=== PATIENT | female | born 1940 | race Caucasian/White ===

== ENCOUNTER 2020-08-07 10:22 | Outpatient (REF) | payer OTHER, SELFPAY ==
[2020-08-07 13:49] LABS: MANUAL DIFF FLAG NO
[2020-08-07 13:53] LABS: Basophils Percent Auto 0.6 % (0-2); Eosinophils Absolute Auto 0.1 X10*3/uL (0.0-0.4); Eosinophils Percent Auto 2.2 % (0-4); Hemoglobin 12.6 g/dl (12.0-16.0); Imm Gran Abs Auto 0.01 X10*3/uL (0.00-0.03); Imm Gran Pct Auto 0.2 % (0.0-0.4); Lymphocytes Absolute Auto 1.6 X10*3/uL (1.2-4.9); Lymphocytes Percent Auto 32.6 % (20-40); Mean Corpuscular HGB Conc 32.3 g/dl (31.0-35.0); Mean Corpuscular Hemoglobin 31.6 pg (27.0-33.0); Mean Corpuscular Volume 97.7 fL (80-98); Mean Platelet Volume 11.3 fL (9.4-12.3); Monocytes Absolute Auto 0.5 X10*3/uL (0.1-1.2); Monocytes Percent Auto 9.2 % (2-11); Neutrophils Absolute Auto 2.7 X10*3/uL (2.0-8.3); Neutrophils Percent Auto 55.2 % (45-73); Platelet Count 193 X10*3/uL (160-400); Red Blood Count 3.99 X10*6/uL (4.20-5.50); Red Cell Distribution Width 12.2 % (11.0-16.0); White Blood Count 4.9 X10*3/uL (4.8-10.8)
[2020-08-07 14:44] LABS: Alanine Aminotransferase 14 U/L (0-31); Albumin Level 3.7 g/dL (3.5-5.0); Alkaline Phosphatase 51 U/L (39-117); Anion Gap 12 (12-20); Aspartate Amino Transferase 20 U/L (5-31); Bilirubin Total 0.7 mg/dL (0.0-1.0); Blood Urea Nitrogen 22 mg/dL (9-16); Calcium 8.7 mg/dL (8.4-10.2); Carbon Dioxide 28 mmol/L (22-29); Chloride 104 mmol/L (96-108); Cholesterol 155 mg/dL; Estimated Glomerular Filt Rate > 60; Glucose Random 78 mg/dL (60-115); Potassium 3.9 mmol/l (3.3-5.1); Sodium 140 mmol/L (135-145); Total Protein 6.9 g/dL (6.5-8.0)
== END 2020-08-07 10:23 | disposition home or self-care (01) ==
LOC: HO.10HDL 10:22
PROVIDERS: Visit Provider Internal Medicine
DX: E78.00 Pure hypercholesterolemia, unspecified (principal); I48.0 Paroxysmal atrial fibrillation; I10 Essential (primary) hypertension
CPT/HCPCS: 36415; 80053; 82465; 85025

== ENCOUNTER 2020-08-12 14:45 | Outpatient (REF) | payer OTHER, SELFPAY | END 2020-08-12 14:46 | disposition home or self-care (01) | LOC: HO.LNP 14:45 | PROVIDERS: Visit Provider Internal Medicine | DX: Z20.828 Contact with and (suspected) exposure to other viral communicable diseases (principal) | CPT/HCPCS: U0003 ==

== ENCOUNTER → 2020-09-01 14:06 | Outpatient (BNVA) | payer OTHER, SELFPAY | PROVIDERS: PCP Internal Medicine; Visit Provider Internal Medicine Cardiovascular Disease | DX: I48.0 Paroxysmal atrial fibrillation (principal); I10 Essential (primary) hypertension; I45.10 Unspecified right bundle-branch block; Z79.01 Long term (current) use of anticoagulants; Z79.899 Other long term (current) drug therapy | CPT/HCPCS: 93005; 99212 ==

== ENCOUNTER → 2020-11-10 13:37 | Outpatient (BNVA) | payer OTHER, SELFPAY | PROVIDERS: PCP Internal Medicine; Visit Provider Surgery | DX: L72.0 Epidermal cyst (principal) | CPT/HCPCS: 99202 ==

== ENCOUNTER → 2020-12-01 08:52 | Outpatient (BNVA) | payer OTHER, SELFPAY | PROVIDERS: PCP Internal Medicine; Visit Provider Internal Medicine Cardiovascular Disease | DX: I48.0 Paroxysmal atrial fibrillation (principal) | CPT/HCPCS: 93005 ==

== ENCOUNTER 2021-02-17 11:57 | Outpatient (REF) | payer OTHER, SELFPAY ==
[2021-02-17 13:21] LABS: MANUAL DIFF FLAG NO
[2021-02-17 13:31] LABS: Basophils Percent Auto 0.5 % (0-2); Eosinophils Absolute Auto 0.1 X10*3/uL (0.0-0.4); Eosinophils Percent Auto 1.4 % (0-4); Hematocrit 38.7 % (37-47); Hemoglobin 12.5 g/dl (12.0-16.0); Imm Gran Abs Auto 0.01 X10*3/uL (0.00-0.03); Imm Gran Pct Auto 0.2 % (0.0-0.4); Lymphocytes Absolute Auto 1.8 X10*3/uL (1.2-4.9); Lymphocytes Percent Auto 42.8 % (20-40); Mean Corpuscular HGB Conc 32.3 g/dl (31.0-35.0); Mean Corpuscular Hemoglobin 31.4 pg (27.0-33.0); Mean Corpuscular Volume 97.2 fL (80-98); Monocytes Absolute Auto 0.4 X10*3/uL (0.1-1.2); Monocytes Percent Auto 8.9 % (2-11); Neutrophils Absolute Auto 1.9 X10*3/uL (2.0-8.3); Neutrophils Percent Auto 46.2 % (45-73); Platelet Count 203 X10*3/uL (160-400); Red Blood Count 3.98 X10*6/uL (4.20-5.50); Red Cell Distribution Width 12.6 % (11.0-16.0); White Blood Count 4.2 X10*3/uL (4.8-10.8)
[2021-02-17 13:57] LABS: Alanine Aminotransferase 16 U/L (0-31); Albumin Level 3.8 g/dL (3.5-5.0); Alkaline Phosphatase 53 U/L (39-117); Anion Gap 9 (12-20); Aspartate Amino Transferase 21 U/L (5-31); Bilirubin Total 0.6 mg/dL (0.0-1.0); Blood Urea Nitrogen 19 mg/dL (9-16); Carbon Dioxide 32 mmol/L (22-29); Chloride 104 mmol/L (96-108); Estimated Glomerular Filt Rate > 60; Glucose Random 84 mg/dL (60-115); Sodium 141 mmol/L (135-145); Total Protein 6.7 g/dL (6.5-8.0)
== END 2021-02-17 11:58 | disposition home or self-care (01) ==
LOC: HO.10HDL 11:57
PROVIDERS: PCP Internal Medicine; Visit Provider Internal Medicine
DX: I10 Essential (primary) hypertension (principal); I48.0 Paroxysmal atrial fibrillation; E78.00 Pure hypercholesterolemia, unspecified
CPT/HCPCS: 36415; 80053; 85025

== ENCOUNTER → 2021-02-24 09:25 | Outpatient (REF) | payer OTHER, SELFPAY ==
--- NOTE | 2021-02-24 09:28 | CA_ITS ---
Transthoracic Echocardiogram Patient (Last, First, Middle): Vera Rees M Gender: Female Date of : 1940 Age: 80 Procedure Date: 02/24/2021 Procedure Type: Transthoracic Echocardiogram Location: OP Height: 154.94 cm Weight: 81.65 kg BSA: 1.81 m2 Heart Rate: bpm BP: 126 / 64 mmHg Store Manager: José Luis MD: Lee Barajas MD Digital Press Operator: Lee Barajas MD Symptoms: I48.0 - Paroxysmal atrial fibrillation Study Quality: Good ECG Rhythm: Sinus Conclusions: - 1. Normal LV systolic function with impaired relaxation filling pattern 2. Mildly dilated left atrium 3. Moderate mitral and calcification with normal cardiac valvular Doppler 4. Normal RV systolic pressure 5. No pericardial effusion Findings Left Ventricle Normal left ventricular size, thickness, and systolic function. The visually estimated ejection fraction is between 60-65%. Spectral Doppler is indicative of an impaired relaxation filling pattern. E/E prime ratio is between 8 and 15 consistent with indeterminate filling pressures. Right Ventricle Normal right ventricular cavity size and systolic function. Atria The left atrium is mildly dilated. There is no evidence of interatrial shunt. The right atrium is normal in size. Aortic Valve Normal aortic valve structure and function. There is no aortic valve stenosis. There is no aortic valve regurgitation. Mitral Valve There is mild anterior and moderate posterior mitral leaflet thickening. There is moderate mitral annular calcification. There is trace mitral valve regurgitation. There is no mitral valve stenosis. Pulmonic Valve The pulmonic valve was not well visualized. Tricuspid Valve Likely normal tricuspid valve structure and function. There is mild tricuspid valve regurgitation. The right ventricular systolic pressure is normal. The right ventricular systolic pressure is 29 mmHg. Normal right atrial pressure. There is no evidence of pulmonary hypertension. Great Vessels All visible segments of the aorta are normal in size. The pulmonary artery was not well visualized. Venous The inferior vena cava is normal in size and collapses greater than 50% with inspiration. Pericardium/Pleural There is no evidence of pericardial effusion. Measurements 2D Linear Measurements RVIDd: 3.80 RVIDd Index: 2.10 IVSd: 0.97 0.6-0.9/0.6-1.0 cm LVIDd: 4.61 3.9-5.3/4.2-5.9 cm LVIDd Index: 2.55 2.4-3.2/2.2-3.1 cm/m2 LVIDs: 3.10 2.0-3.6 cm LVPWd: 1.17 0.7-1.1 cm Ao Root: 3.10 2.1-3.5 cm LA Diam: 3.90 2.7-3.8/3.0-4.0 cm LAIDs Index: 2.15 1.5-2.3 cm/m2 LV Mass: 217.25 67-162/88-224 g LV Mass Index: 120.03 43-95/49-115 g/m2 LVOT Diam: 2.10 3.0+(-)1.3 cm 2D Systolic Function EF 4C: 52.30 >55% EF 2C: 62.30 >55% EF BiP: 59.10 >55% Mitral Valve MV Pk E: 0.70 MV PK A: 0.59 MV Decel Time: 244.00 E/A: 1.20 E'Lateral: 6.20 E'Medial: 5.66 E/E' Med: 12.30 E/E' Lat: 11.30 Aortic Valve AoV Pk Christopher: 1.38 AoV Mn Christopher: 1.03 AoV VTI: 0.36 AoV Pk Grad: 8.00 Aov Mn Grad: 5.00 PARESH Cont.VTI: 2.45 LVOT LVOT Pk Christopher: 0.86 LVOT Mn Christopher: 0.67 LVOT VTI: 0.25 LVOT Pk Grad: 3.00 LVOT Mn Grad: 2.00 LVOT Diam: 2.10 LVOT Area: 3.46 Diastolic Function MV Pk E: 0.70 MV Pk A: 0.59 E/A: 1.20 E'Medial: 5.66 E/E' Med: 12.30 E' Laterial: 6.20 E/E' Lat: 11.30 Tricuspid Valve TR Pk Christopher: 2.54 TR Pk Grad: 26.00 RA Press: 3.00 RVSP: 29.00 Great Vessels Aorta Ao Root-2D: 3.10 2.0-3.7 cm Ao Asc: 3.40 2.1-3.4 cm Updated in Other Vendor System with Status of Final Lee Barajas MD electronically signed on 02/24/2021 5:02:48 PM with status of Final
== END ==
LOC: HO.CARD 09:25
PROVIDERS: PCP Internal Medicine; Visit Provider Internal Medicine Cardiovascular Disease
DX: I10 Essential (primary) hypertension (principal); I45.10 Unspecified right bundle-branch block; I48.0 Paroxysmal atrial fibrillation
CPT/HCPCS: 93306

== ENCOUNTER → 2021-04-16 09:55 | Outpatient (BNVA) | payer OTHER, SELFPAY | PROVIDERS: PCP Internal Medicine; Visit Provider Internal Medicine Cardiovascular Disease | DX: I48.0 Paroxysmal atrial fibrillation (principal); I10 Essential (primary) hypertension | CPT/HCPCS: 93005; 99212 ==

== ENCOUNTER 2021-06-30 20:36 | Emergency (ER) | payer OTHER, SELFPAY ==
--- NOTE | ~2021-06-30 | XR_ITS ---
EXAMINATION: XR KNEE, LEFT CLINICAL INFORMATION: Pain following twisting injury. COMPARISON: Left knee radiographs dated 12/29/2015. TECHNIQUE: AP and lateral views of the left knee. FINDINGS: Total left knee arthroplasty. No acute hardware fracture. No osseous fracture. No perihardware lucency to suggest loosening or infection. Dystrophic calcification within the distal quadriceps tendon, increased when compared to the prior examination. Large joint effusion. XR/XR knee LT 2V IMPRESSION: Large joint effusion. No evidence of acute osseous or hardware abnormality.
[2021-06-30 20:43] VITALS: BP 160/96; BP 198/104; PULSE 81; PULSE 88; RESP 18; TEMP 37; O2SAT 98; BMI 34.0
[2021-06-30 20:45] VITALS: BP 228/96
--- NOTE | 2021-06-30 20:59 | ED.LOWEXIN ---
HPI - Extremity Injury (Lower) General Chief Complaint: Extremity Injury, Lower Stated Complaint: L knee pain Time Seen by Provider: 06/30/21 20:59 Source: patient Mode of arrival: ambulatory Limitations: no limitations History of Present Illness HPI Narrative: Patient is status post left knee replacement 5 years ago was doing fine was walking to still her foot has a curbside earlier today since then increased swelling of the left knee with effusion increased pain on standing unable to walk because of pain no other injury Related Data Home Medications Medication Instructions Recorded Confirmed amlodipine 2.5 mg tablet 2.5 mg PO DAILY 09/01/20 04/16/21 dronedarone 400 mg tablet 400 mg PO BID 09/01/20 04/16/21 lisinopril 40 mg tablet 40 mg PO DAILY 09/01/20 04/16/21 multivitamin 1 tab PO DAILY 09/01/20 04/16/21 pravastatin 40 mg tablet 40 mg PO DAILY tab 09/01/20 04/16/21 ascorbate calcium (vitamin C) 500 500 mg PO DAILY 04/16/21 04/16/21 mg tablet calcium carbonate 500 mg calcium 500 mg PO DAILY 04/16/21 04/16/21 (1,250 mg) tablet (Calcium 500) Previous Rx's Medication Instructions Recorded dabigatran etexilate 150 mg 150 mg PO BID 90 Days #180 cap 07/22/20 capsule (Pradaxa) oxycodone 5 mg tablet 5 mg PO Q6H PRN #20 tab 06/30/21 Allergies Allergy/AdvReac Type Severity Reaction Status Date / Time No Known Allergies Allergy Verified 04/16/21 10:11 [No Known Allergies*] Review of Systems Review of Systems: Yes all other systems are reviewed and are negative [facility] Past Medical History Medical History Epidermal cyst of face HTN (hypertension) Paroxysmal atrial fibrillation Right bundle branch block (RBBB) on electrocardiogram (ECG) Surgical History History of tonsillectomy History of total knee replacement (~2014) Family History Family History Father Pancreatic cancer Mother Stroke CHF (congestive heart failure) Diabetes mellitus Brother Cardiovascular disease Social History Social History Alcohol intake: current Alcohol intake frequency: holidays/special occasions only Alcohol type: wine Patient Tobacco Use Status: Never used Tobacco Advance Directives: No Advance Directives Information Provided: Yes Physical Exam Vital Signs: Vital Signs: Last Vital Signs Temp 98.6 F 06/30/21 20:43 Pulse 81 06/30/21 20:43 Resp 18 06/30/21 20:43 BP 228/96 H 06/30/21 20:45 Pulse Ox 98 06/30/21 20:43 Body Mass Index 34.0 Const: General: well developed and in distress Orientation/consciousness: patient oriented x3 HENMT: Head: Yes normocephalic and Yes atraumatic Resp: Effort & Inspection: normal respiratory effort Auscultation: clear to auscultation bilaterally Cardio: Palpation: normal PMI Rate: regular rate Rhythm: regular rhythm Heart sounds: S1 normal heart sound present and S2 normal heart sound present Peripheral pulses: Peripheral pulses 2+ throughout GI: Inspection: Yes normal to inspection Palpation (GI): Soft to palpation Auscultation: normal bowel sounds Neuro: General: patient oriented x3 Extrem: Knee images: 1. Moderate effusion diffuse tenderness at the joint line good range of movement MDM - Extremity Injury (Lower) MDM Narrative Medical decision making narrative: Patient's x-ray negative for any fracture case discussed with orthopedics advised knee immobilizer weight-bearing as tolerated patient able to ambulate to bathroom feeling much better discharge patient home Differential Diagnosis Differential diagnosis: Likely acute internal derangement of knee Discharge Plan Discharge Clinical Impression: Strain of left knee Qualifiers: Encounter type: initial encounter Qualified Code(s): S86.912A - Strain of unspecified muscle(s) and tendon(s) at lower leg level, left leg, initial encounter Patient Disposition: Home, Self-Care Instructions: Knee Sprain (ED) Additional Instructions: Knee immobilizer as advised for support Weight-bearing as tolerated use cane or walker Follow-up with Dr. Mac next week Pain medication as prescribed Prescriptions: New oxycodone 5 mg tablet 5 mg PO Q6H PRN (Reason: pain) Qty: 20 RF: 0 No Action Pradaxa 150 mg capsule 150 mg PO BID 90 Days Qty: 180 RF: 1 amlodipine 2.5 mg tablet 2.5 mg PO DAILY RF: 0 Multaq 400 mg tablet 400 mg PO BID RF: 0 lisinopril 40 mg tablet 40 mg PO DAILY RF: 0 pravastatin 40 mg tablet 40 mg PO DAILY RF: 0 multivitamin Tablet 1 tab PO DAILY RF: 0 ascorbate calcium (vitamin C) 500 mg tablet 500 mg PO DAILY RF: 0 calcium carbonate [Calcium 500] 500 mg calcium (1,250 mg) tablet 500 mg PO DAILY RF: 0 Referrals: Martín Mac MD [Physician] - 3 days Interventions: ED Discharge Assessment Last Done: 06/30/21 23:05
[2021-06-30] MEDS: oxyCODONE HCl Immed Release 5 MG TABLET 10 MG PO (21:33)
== END 2021-06-30 23:06 | disposition home or self-care (01) ==
PROVIDERS: Emergency Provider Internal Medicine
DX: S86.912A Strain of unspecified muscle(s) and tendon(s) at lower leg level, left leg, initial encounter (principal); M25.562 Pain in left knee; X58.XXXA Exposure to other specified factors, initial encounter; Y93.9 Activity, unspecified; Y92.9 Unspecified place or not applicable; Y99.9 Unspecified external cause status; Z79.899 Other long term (current) drug therapy
CPT/HCPCS: 73560; 99283

== ENCOUNTER 2021-07-11 08:22 | Outpatient (REF) | payer OTHER, SELFPAY ==
[2021-07-11 08:33] LABS: MANUAL DIFF FLAG NO
[2021-07-11 09:17] LABS: Basophils Percent Auto 0.7 % (0-2); Eosinophils Absolute Auto 0.1 X10*3/uL (0.0-0.4); Eosinophils Percent Auto 2.6 % (0-4); Hematocrit 38.2 % (37.0-47.0); Hemoglobin 12.6 g/dl (12.0-16.0); Imm Gran Abs Auto 0.01 X10*3/uL (0.00-0.03); Imm Gran Pct Auto 0.2 % (0.0-0.4); Lymphocytes Absolute Auto 2.1 X10*3/uL (1.2-4.9); Lymphocytes Percent Auto 47.7 % (20-40); Mean Corpuscular Hemoglobin 32.3 pg (27.0-33.0); Mean Corpuscular Volume 97.9 fL (80.0-98.0); Monocytes Absolute Auto 0.4 X10*3/uL (0.1-1.2); Monocytes Percent Auto 9.1 % (2-11); Neutrophils Absolute Auto 1.7 x10*3/uL (2.0-8.3); Neutrophils Percent Auto 39.7 % (45-73); Platelet Count 216 X10*3/uL (160-400); Red Cell Distribution Width 12.7 % (11.0-16.0); White Blood Count 4.3 X10*3/uL (4.8-10.8)
[2021-07-11 09:56] LABS: Alanine Aminotransferase 18 U/L (0-31); Albumin Level 3.7 g/dL (3.5-5.0); Alkaline Phosphatase 51 U/L (39-117); Anion Gap 10 (12-20); Aspartate Amino Transferase 22 U/L (5-31); Bilirubin Total 0.4 mg/dL (0.0-1.0); Blood Urea Nitrogen 23 mg/dL (9-16); Calcium 8.6 mg/dL (8.4-10.2); Carbon Dioxide 29 mmol/L (22-29); Chloride 107 mmol/L (96-108); Cholesterol 143 mg/dL; Estimated Glomerular Filt Rate > 60; Glucose Fasting 88 mg/dL (60-99); HDL Cholesterol 45 mg/dL; LDL Cholesterol Calculated 80 mg/dl; Sodium 142 mmol/L (135-145); Total Protein 6.7 g/dL (6.5-8.0); Triglycerides 91 mg/dL
== END 2021-07-11 08:23 | disposition home or self-care (01) ==
LOC: HO.LAB 08:22
PROVIDERS: PCP Internal Medicine; Visit Provider Internal Medicine
DX: I10 Essential (primary) hypertension (principal); E78.00 Pure hypercholesterolemia, unspecified; I48.0 Paroxysmal atrial fibrillation; M19.90 Unspecified osteoarthritis, unspecified site
CPT/HCPCS: 36415; 80053; 80061; 85025

== ENCOUNTER 2021-07-15 13:16 | Outpatient (REF) | payer OTHER, SELFPAY ==
--- NOTE | ~2021-07-15 | MM_ITS ---
EXAMINATION: MM SCREENING DIGITAL BREAST TOMOSYNTHESIS, BILATERAL CLINICAL INFORMATION: Screening. Asymptomatic. The lifetime risk of breast cancer based on the Tyrer-Cuzick Model is 3%. COMPARISON: Mammography: 03/20/2020, 12/07/2018, 11/23/2017 TECHNIQUE: Digital breast tomosynthesis is performed in both the craniocaudal and mediolateral oblique views along with computer-aided detection (CAD). Synthesized 2D images are generated from the tomosynthesis. Additional left CC view is provided. FINDINGS: There are scattered areas of fibroglandular density (ACR BI-RADS breast composition Category b). There are no significant masses, abnormal calcifications, or other abnormalities. Nodularity anterior outer left breast is decreased to resolved from prior exams. No developing density. The axilla and skin contours are unremarkable. MM/MM tomosynthesis screening BI IMPRESSION: No mammographic evidence of malignancy. ASSESSMENT: BI-RADS 1: Negative RECOMMENDATION: Routine annual mammography screening. This patient's information was entered into a reminder system with a target due date for their next mammogram.
== END 2021-07-15 13:17 | disposition home or self-care (01) ==
LOC: HO.MAMMO 13:16
PROVIDERS: PCP Internal Medicine; Visit Provider Internal Medicine
DX: Z12.31 Encounter for screening mammogram for malignant neoplasm of breast (principal)
CPT/HCPCS: 77063; 77067

== ENCOUNTER → 2021-07-16 08:43 | Outpatient (BNVA) | payer OTHER, SELFPAY | PROVIDERS: PCP Internal Medicine; Referring Provider Internal Medicine; Visit Provider Internal Medicine Cardiovascular Disease | DX: I48.0 Paroxysmal atrial fibrillation (principal) | CPT/HCPCS: 93005 ==

== ENCOUNTER → 2021-07-20 08:52 | Outpatient (BNVA) | payer OTHER, SELFPAY | PROVIDERS: PCP Internal Medicine; Visit Provider Orthopaedic Surgery | DX: Z96.652 Presence of left artificial knee joint (principal) | CPT/HCPCS: 99202 ==

== ENCOUNTER → 2021-08-10 14:29 | Outpatient (REF) | payer OTHER, SELFPAY ==
--- NOTE | 2021-08-10 14:32 | HM_ITS ---
Conclusion : 1. Patient was monitored for a total of 6 days and 23 hours 2. Baseline rhythm is NSR with average HR of 73 bpm 3. No significant pauses or bradycardia is noted 4. Frequent PVCs, mostly isolated with total burden of 7.63% 5. No AF noted 6. Patient reported no events MTDD
== END ==
LOC: HO.CARD 14:29
PROVIDERS: PCP Internal Medicine; Visit Provider Internal Medicine Cardiovascular Disease
DX: I48.0 Paroxysmal atrial fibrillation (principal)
CPT/HCPCS: 93242

== ENCOUNTER → 2021-10-20 08:40 | Outpatient (BNVA) | payer OTHER, SELFPAY | PROVIDERS: PCP Internal Medicine; Referring Provider Internal Medicine; Visit Provider Internal Medicine Cardiovascular Disease | DX: I48.0 Paroxysmal atrial fibrillation (principal); I10 Essential (primary) hypertension | CPT/HCPCS: 93005; 99212 ==

== ENCOUNTER → 2022-01-12 08:46 | Outpatient (BNVA) | payer OTHER, SELFPAY | PROVIDERS: PCP Internal Medicine; Referring Provider Internal Medicine; Visit Provider Internal Medicine Cardiovascular Disease | DX: I45.10 Unspecified right bundle-branch block (principal); R94.31 Abnormal electrocardiogram [ECG] [EKG] | CPT/HCPCS: 93005 ==

== ENCOUNTER 2022-01-18 10:26 | Outpatient (REF) | payer OTHER, SELFPAY ==
[2022-01-18 13:06] LABS: MANUAL DIFF FLAG NO
[2022-01-18 13:12] LABS: Basophils Percent Auto 0.6 % (0-2); Eosinophils Absolute Auto 0.1 X10*3/uL (0.0-0.4); Eosinophils Percent Auto 1.9 % (0-4); Hematocrit 37.4 % (37.0-47.0); Hemoglobin 12.1 g/dl (12.0-16.0); Imm Gran Abs Auto 0.01 X10*3/uL (0.00-0.03); Imm Gran Pct Auto 0.2 % (0.0-0.4); Lymphocytes Absolute Auto 1.6 X10*3/uL (1.2-4.9); Lymphocytes Percent Auto 33.5 % (20-40); Mean Corpuscular HGB Conc 32.4 g/dl (31.0-35.0); Mean Corpuscular Hemoglobin 31.3 pg (27.0-33.0); Mean Corpuscular Volume 96.9 fL (80.0-98.0); Mean Platelet Volume 10.7 fL (9.4-12.3); Monocytes Absolute Auto 0.4 X10*3/uL (0.1-1.2); Monocytes Percent Auto 9.1 % (2-11); Neutrophils Absolute Auto 2.5 x10*3/uL (2.0-8.3); Neutrophils Percent Auto 54.7 % (45-73); Platelet Count 212 X10*3/uL (160-400); Red Blood Count 3.86 X10*6/uL (4.20-5.50); Red Cell Distribution Width 12.7 % (11.0-16.0); White Blood Count 4.6 X10*3/uL (4.8-10.8)
[2022-01-18 13:39] LABS: Alanine Aminotransferase 16 U/L (0-31); Albumin Level 3.6 g/dL (3.5-5.0); Alkaline Phosphatase 53 U/L (39-117); Anion Gap 11 (12-20); Aspartate Amino Transferase 21 U/L (5-31); Bilirubin Total 0.6 mg/dL (0.0-1.0); Blood Urea Nitrogen 21 mg/dL (9-16); Carbon Dioxide 30 mmol/L (22-29); Chloride 104 mmol/L (96-108); Estimated Glomerular Filt Rate > 60; Glucose Random 80 mg/dL (60-115); Potassium 4.1 mmol/L (3.3-5.1); Sodium 141 mmol/L (135-145); Total Protein 6.8 g/dL (6.5-8.0)
== END 2022-01-18 10:27 | disposition home or self-care (01) ==
LOC: HO.10HDL 10:26
PROVIDERS: Visit Provider Internal Medicine
DX: I48.0 Paroxysmal atrial fibrillation (principal); I10 Essential (primary) hypertension; E78.00 Pure hypercholesterolemia, unspecified; M19.90 Unspecified osteoarthritis, unspecified site
CPT/HCPCS: 36415; 80053; 85025

== ENCOUNTER → 2022-04-13 08:55 | Outpatient (BNVA) | payer OTHER, SELFPAY | PROVIDERS: PCP Internal Medicine; Referring Provider Internal Medicine; Visit Provider Internal Medicine Cardiovascular Disease | DX: I48.0 Paroxysmal atrial fibrillation (principal); I10 Essential (primary) hypertension; Z79.01 Long term (current) use of anticoagulants; Z79.899 Other long term (current) drug therapy | CPT/HCPCS: 93005; 99212 ==

== ENCOUNTER → 2022-07-14 08:56 | Outpatient (BNVA) | payer OTHER, SELFPAY | PROVIDERS: PCP Internal Medicine; Referring Provider Internal Medicine; Visit Provider Internal Medicine Cardiovascular Disease | DX: R94.31 Abnormal electrocardiogram [ECG] [EKG] (principal); I45.10 Unspecified right bundle-branch block | CPT/HCPCS: 93005 ==

== ENCOUNTER 2022-09-01 08:22 | Outpatient (REF) | payer OTHER, SELFPAY ==
[2022-09-01 10:21] LABS: MANUAL DIFF FLAG NO
[2022-09-01 10:27] LABS: Basophils Percent Auto 0.7 % (0-2); Eosinophils Absolute Auto 0.1 X10*3/uL (0.0-0.4); Eosinophils Percent Auto 1.9 % (0-4); Hematocrit 38.5 % (37.0-47.0); Hemoglobin 12.4 g/dl (12.0-16.0); Imm Gran Abs Auto 0.01 X10*3/uL (0.00-0.03); Imm Gran Pct Auto 0.2 % (0.0-0.4); Lymphocytes Absolute Auto 1.7 X10*3/uL (1.2-4.9); Lymphocytes Percent Auto 39.5 % (20-40); Mean Corpuscular HGB Conc 32.2 g/dl (31.0-35.0); Mean Corpuscular Hemoglobin 31.5 pg (27.0-33.0); Mean Corpuscular Volume 97.7 fL (80.0-98.0); Mean Platelet Volume 10.3 fL (9.4-12.3); Monocytes Absolute Auto 0.4 X10*3/uL (0.1-1.2); Monocytes Percent Auto 8.4 % (2-11); Neutrophils Absolute Auto 2.1 x10*3/uL (2.0-8.3); Neutrophils Percent Auto 49.3 % (45-73); Platelet Count 268 X10*3/uL (160-400); Red Blood Count 3.94 X10*6/uL (4.20-5.50); Red Cell Distribution Width 12.7 % (11.0-16.0); White Blood Count 4.2 X10*3/uL (4.8-10.8)
[2022-09-01 10:40] LABS: Alanine Aminotransferase 17 U/L (0-31); Albumin Level 3.5 g/dL (3.5-5.0); Alkaline Phosphatase 57 U/L (39-117); Anion Gap 9 (12-20); Aspartate Amino Transferase 20 U/L (5-31); Bilirubin Total 0.6 mg/dL (0.0-1.0); Blood Urea Nitrogen 18 mg/dL (9-16); Carbon Dioxide 29 mmol/L (22-29); Chloride 105 mmol/L (96-108); Cholesterol 148 mg/dL; Estimated Glomerular Filt Rate > 60; Glucose Fasting 88 mg/dL (60-99); HDL Cholesterol 48 mg/dL; LDL Cholesterol Calculated 81 mg/dl; Potassium 4.1 mmol/L (3.3-5.1); Sodium 139 mmol/L (135-145); Total Protein 6.5 g/dL (6.5-8.0); Triglycerides 98 mg/dL
== END 2022-09-01 08:23 | disposition home or self-care (01) ==
LOC: HO.10HDL 08:22
PROVIDERS: Visit Provider Internal Medicine
DX: I10 Essential (primary) hypertension (principal); M19.90 Unspecified osteoarthritis, unspecified site; E78.00 Pure hypercholesterolemia, unspecified
CPT/HCPCS: 36415; 80053; 80061; 85025

== ENCOUNTER 2022-09-10 12:00 | Outpatient (REF) | payer OTHER, SELFPAY ==
--- NOTE | ~2022-09-10 | MM_ITS ---
EXAMINATION: MM SCREENING DIGITAL BREAST TOMOSYNTHESIS, BILATERAL CLINICAL INFORMATION: Screening. Asymptomatic. The lifetime risk of breast cancer based on the Tyrer-Cuzick Model is 2%. COMPARISON: Mammography: 07/15/2021, 03/20/2020, 12/07/2018 TECHNIQUE: Digital breast tomosynthesis is performed in both the craniocaudal and mediolateral oblique views along with computer-aided detection (CAD). Synthesized 2D images are generated from the tomosynthesis. FINDINGS: There are scattered areas of fibroglandular density (ACR BI-RADS breast composition Category b). Parenchymal pattern is similar to prior studies. There is no developing density or architectural abnormality. No abnormal calcifications. The axilla and skin contours are unremarkable. No significant changes from prior exams. MM/MM tomosynthesis screening BI IMPRESSION: No mammographic evidence of malignancy. ASSESSMENT: BI-RADS 1: Negative RECOMMENDATION: Routine annual mammography screening. This patient's information was entered into a reminder system with a target due date for their next mammogram.
== END 2022-09-10 12:01 | disposition home or self-care (01) ==
LOC: HO.MAMMO 12:00
PROVIDERS: PCP Internal Medicine; Visit Provider Internal Medicine
DX: Z12.31 Encounter for screening mammogram for malignant neoplasm of breast (principal)
CPT/HCPCS: 77063; 77067

== ENCOUNTER → 2022-10-14 09:52 | Outpatient (BNVA) | payer OTHER, SELFPAY | PROVIDERS: PCP Internal Medicine; Referring Provider Internal Medicine; Visit Provider Internal Medicine Cardiovascular Disease | DX: I48.0 Paroxysmal atrial fibrillation (principal); I45.2 Bifascicular block; I10 Essential (primary) hypertension | CPT/HCPCS: 93005; 99212 ==

== ENCOUNTER 2023-01-13 12:33 | Outpatient (REF) | payer OTHER, SELFPAY ==
--- NOTE | ~2023-01-13 | XR_ITS ---
EXAMINATION: XR knee standing BI, XR knee RT 2V CLINICAL INFORMATION: Female of 82 years with history of Reason for Exam M25.569 - Pain in unspecified knee COMPARISON: Most recent right knee radiograph: Bilateral knees from 12/29/2015 TECHNIQUE: Weightbearing knees and bilateral, of the right knee lateral, sunrise views. FINDINGS: Bilateral views revealed status post total knee replacement on the left with well aligned prosthesis and narrowing of the medial compartment of right knee joint with mild varus deformity and minimal marginal spurring. Lateral view and sunrise views revealed narrowing of patellofemoral compartment laterally with marginal spurring but no joint effusion. No fracture or dislocation. 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
--- NOTE | ~2023-01-13 | XR_ITS ---
EXAMINATION: XR knee standing BI, XR knee RT 2V CLINICAL INFORMATION: Female of 82 years with history of Reason for Exam M25.569 - Pain in unspecified knee COMPARISON: Most recent right knee radiograph: Bilateral knees from 12/29/2015 TECHNIQUE: Weightbearing knees and bilateral, of the right knee lateral, sunrise views. FINDINGS: Bilateral views revealed status post total knee replacement on the left with well aligned prosthesis and narrowing of the medial compartment of right knee joint with mild varus deformity and minimal marginal spurring. Lateral view and sunrise views revealed narrowing of patellofemoral compartment laterally with marginal spurring but no joint effusion. No fracture or dislocation. 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
== END 2023-01-13 12:34 | disposition home or self-care (01) ==
LOC: HO.HOSX 12:33
PROVIDERS: Visit Provider Orthopaedic Surgery
DX: M17.11 Unilateral primary osteoarthritis, right knee (principal)
CPT/HCPCS: 20610; 73560; 73565; 99212; J1100

== ENCOUNTER → 2023-01-14 09:24 | Outpatient (BNVA) | payer OTHER, SELFPAY | PROVIDERS: PCP Internal Medicine; Visit Provider Internal Medicine Cardiovascular Disease ==

== ENCOUNTER 2023-05-03 12:19 | Outpatient (AMB) | payer OTHER, SELFPAY ==
--- NOTE | 2023-05-03 12:30 | MHC.OFFVIS ---
Intake Vital Signs 05/03/23 12:32 Height 5 ft 1 in Weight 187 lb 6.287 oz BMI 35.4 BP 126/82 Blood Pressure Location Lt brachial Position Sitting Pulse 77 Intake Visit Reasons: 6 MON FUP W/ EKG Intake Note: 6 month follow-up with ekg feeling ok had a run a few weeks ago for most on the day but nothing other then that Research Animal Facility Supervisor Required: No Allergies No Known Allergies [No Known Allergies*] Allergy (Verified 01/13/23 13:54) Medication List - Last Reconciled 05/03/23 by Lee Barajas MD amlodipine 5 mg PO DAILY amlodipine 5 mg PO DAILY ascorbate calcium (vitamin C) 500 mg PO DAILY calcium carbonate (Calcium 500) 500 mg PO DAILY dabigatran etexilate (Pradaxa) 150 mg PO BID 90 days dronedarone 400 mg PO BID lisinopril 40 mg PO DAILY multivitamin 1 tab PO DAILY pravastatin 40 mg PO DAILY HPI HPI Comments History of Present Illness Details Sister comes for follow-up. She said 1 day when she woke up in the morning she felt tired. Couple of hours later she checked her pulse and noted this to be regular in atrial fibrillation. This lasted for most of the day. However than following morning she was back in sinus rhythm and factor energy level. There is no clear precipitating event causing her recurrent atrial fibrillation. This happened few weeks ago. No recurrent episodes since then. This is the 1st episode in many years. She has not had any major bleeding issues or neurologic events. She takes all her medications regularly. Denies any exertional chest pain or shortness of breath. No lightheadedness, syncope. No orthopnea, PND, leg edema. [facility] Medical History Epidermal cyst of face HTN (hypertension) Paroxysmal atrial fibrillation Right bundle branch block (RBBB) on electrocardiogram (ECG) Surgical History History of tonsillectomy History of total knee replacement (~2014) Family History Father Pancreatic cancer Mother Stroke CHF (congestive heart failure) Diabetes mellitus Brother Cardiovascular disease Social History Alcohol intake: current Alcohol intake frequency: holidays/special occasions only Alcohol type: wine Patient Tobacco Use Status: Never used Tobacco Review of Systems Const Denies chills, Denies fatigue, Denies fever(s), Denies frequent falls, Denies weakness, Denies weight gain and Denies weight loss ENT Denies dizziness Card Denies chest pain, Denies leg edema, Denies lightheadedness, Denies palpitations, Denies dyspnea, Denies dyspnea on exertion, Denies orthopnea and Denies other (loss of consciousness) Resp Denies cough, Denies dyspnea and Denies dyspnea on exertion GI Denies hematochezia and Denies change in stool character Musc Denies abnormal gait, Denies muscle weakness, Denies numbness, Denies radiating pain into limb and Denies tingling Neuro Denies abnormal gait, Denies dizziness, Denies frequent falls, Denies numbness, Denies tingling and Denies weakness Endo Denies fatigue and Denies palpitations Physical Exam Vital Signs: Last Vital Signs Pulse 77 05/03/23 12:32 BP 126/82 05/03/23 12:32 BMI result Body Mass Index 35.4 Const General: comfortable, alert and awake Nutritional Appearance: obese Orientation/consciousness: oriented to person and patient oriented x3 Limitations: no limitations HEENT Head: Yes normocephalic and Yes atraumatic Neck Neck: Yes trachea midline, Yes supple and Yes no JVD Chest Chest palpation & inspection: normal inspection of the chest Resp Effort & Inspection: normal respiratory effort Auscultation: clear to auscultation bilaterally Cardio Jugular venous distension: no JVD Palpation: normal PMI Rate: regular rate Rhythm: regular rhythm Heart sounds: S1 normal heart sound present and S2 normal heart sound present Skin General skin exam: ecchymosis Neuro General: oriented to person, patient oriented x3 and no focal motor deficits Extrem General: Yes no clubbing, cyanosis or edema Psych Appearance: grossly normal Office Procedures EKG Details: EKG shows normal sinus rhythm with right bundle-branch block at 77 beats per minute with QT interval of 434 milliseconds and QRS interval of 138 milliseconds [id number], Complete Assessment & Plan Assessment & Plan (1) Paroxysmal atrial fibrillation: Code(s): I48.0 - Paroxysmal atrial fibrillation Plan: Paroxysmal atrial fibrillation with recent episode of long lasting atrial fibrillation without any clear triggers. This could be possibly related to structural changes in the left atrium. Will obtain a echocardiogram near future. Management of atrial fibrillation was discussed again. Given only 1 episode will continue to use Multaq for rhythm management. She has done extremely well with rhythm management. Advised to continue to monitor for symptoms and log were symptoms and look for potential triggers. She understands agrees. Continue full oral anticoagulation, currently on Pradaxa 150 mg b.i.d.. Semi annual renal function test should be pursued. Continue to participate in physical activity as tolerated. Avoidance of stimulants was discussed. (2) HTN (hypertension): Code(s): I10 - Essential (primary) hypertension Plan: Hypertension which is currently well optimized. Continue current therapy. Importance of good blood pressure control was discussed. Target goal blood pressure less than 130/84. Advised to monitor blood pressure at home maintain a log. Low-salt diet was discussed. Continue maintain activity level as tolerated. Will follow up in the clinic in 3 months for EKG in 6 months with me. Thank you for allowing me to partake in the care Orders: Orders CA echo transthoracic complete Today I48.0 - Paroxysmal atrial fibrillation Basic Metabolic Panel Today I48.0 - Paroxysmal atrial fibrillation Coding Level of Care Code Est Pt Level 4 (66289) Diagnoses Paroxysmal atrial fibrillation I48.0 HTN (hypertension) I10 CPT Codes EKG - CPT: [id number], Complete ([id number])
[2023-05-03 12:32] VITALS: BP 126/82; PULSE 77; BMI 35.4
== END 2023-05-03 12:56 | disposition home or self-care (01) ==
PROVIDERS: PCP Internal Medicine; Referring Provider Internal Medicine; Visit Provider Internal Medicine Cardiovascular Disease
DX: I48.0 Paroxysmal atrial fibrillation (principal); I10 Essential (primary) hypertension
CPT/HCPCS: 93010; 99214

== ENCOUNTER 2023-05-03 12:19 | Outpatient (REF) | payer OTHER, SELFPAY ==
[2023-05-03 16:00] LABS: Anion Gap 11 (12-20); Blood Urea Nitrogen 24 mg/dL (9-16); Calcium 9.4 mg/dL (8.4-10.2); Carbon Dioxide 27 mmol/L (22-29); Chloride 107 mmol/L (96-108); Estimated Glomerular Filt Rate 58; Glucose Random 73 mg/dL (60-115); Sodium 141 mmol/L (135-145)
== END 2023-05-03 12:20 | disposition home or self-care (01) ==
LOC: HO.LAB 12:19
PROVIDERS: PCP Internal Medicine; Referring Provider Internal Medicine; Visit Provider Internal Medicine Cardiovascular Disease
DX: I48.0 Paroxysmal atrial fibrillation (principal); I10 Essential (primary) hypertension
CPT/HCPCS: 36415; 80048; 93005; 99212

== ENCOUNTER → 2023-06-10 10:50 | Outpatient (REF) | payer OTHER, SELFPAY ==
--- NOTE | 2023-06-10 10:52 | CA_ITS ---
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 There is normal left ventricular wall thickness. The visually estimated ejection fraction is between 60-65%. - Elevated filling pressures. There is moderate septal asymmetric hypertrophy. - Normal right ventricular cavity size and systolic function. Findings Left Ventricle Normal left ventricular size and systolic function. There is normal left ventricular wall thickness. The visually estimated ejection fraction is between 60-65%. There is no evidence of regional wall motion abnormalities. Abnormal diastolic function is noted. Spectral Doppler is indicative of an impaired relaxation filling pattern. Elevated filling pressures. There is moderate septal asymmetric hypertrophy. Right Ventricle Normal right ventricular cavity size and systolic function. Atria The left atrium is mildly dilated. The right atrium is mildly dilated. Aortic Valve Normal aortic valve structure and function. There is no aortic valve stenosis. There is no aortic valve regurgitation. Mitral Valve The mitral valve appears normal. There is mild mitral annular calcification. There is trace mitral valve regurgitation. There is no mitral valve stenosis. Pulmonic Valve Normal pulmonic valve structure and function. There is trace pulmonic valve regurgitation. Tricuspid Valve Normal tricuspid valve structure and function. There is trace tricuspid valve regurgitation. Normal right atrial pressure. There is no evidence of pulmonary hypertension. Great Vessels There is mild dilatation of the ascending aorta measuring 3.40 cm. The visualized portions of the pulmonary artery and branches are normal. Venous The inferior vena cava is normal in size and collapses greater than 50% with inspiration. Pericardium/Pleural There is no evidence of pericardial effusion. Prior Study Comparison Changes noted compared to prior study dated: 02/24/2021. Elevated filling pressures. Measurements 2D Linear Measurements IVSd: 1.30 0.6-0.9/0.6-1.0 cm LVIDd: 4.40 3.9-5.3/4.2-5.9 cm LVIDd Index: 2.43 2.4-3.2/2.2-3.1 cm/m2 LVIDs: 2.40 2.0-3.6 cm LVPWd: 0.90 0.7-1.1 cm LA Diam: 4.10 2.7-3.8/3.0-4.0 cm LAIDs Index: 2.27 1.5-2.3 cm/m2 LV Mass: 210.40 67-162/88-224 g LV Mass Index: 116.25 43-95/49-115 g/m2 LVOT Diam: 1.80 3.0+(-)1.3 cm 2D Systolic Function EF 4C: 62.60 >55% EF 2C: 58.00 >55% EF BiP: 60.40 >55% Mitral Valve MV VTI: 0.27 MV Pk Christopher: 0.88 MV Mn Christopher: 0.49 MV Pk Grad: 3.00 MV Mn Grad: 1.00 MV Pk E: 0.72 MV PK A: 0.72 MV Decel Time: 184.00 E/A: 1.00 E'Lateral: 5.33 E'Medial: 5.22 E/E' Med: 13.90 E/E' Lat: 13.60 PHT: 54.00 MVA PHT: 4.07 MVA Continuity: 2.14 Decel [place]: 3.93 Aortic Valve AoV Pk Christopher: 1.22 AoV Mn Christopher: 0.80 AoV VTI: 0.32 AoV Pk Grad: 6.00 Aov Mn Grad: 3.00 PARESH Cont.VTI: 1.76 LVOT LVOT Pk Christopher: 0.79 LVOT Mn Christopher: 0.52 LVOT VTI: 0.22 LVOT Pk Grad: 2.00 LVOT Mn Grad: 1.00 LVOT Diam: 1.80 LVOT Area: 2.54 Diastolic Function MV Pk E: 0.72 MV Pk A: 0.72 E/A: 1.00 E'Medial: 5.22 E/E' Med: 13.90 E' Laterial: 5.33 E/E' Lat: 13.60 Right Ventricle TAPSE (mm): 24.80 TVS' Christopher: 11.70 Tricuspid Valve TR Pk Christopher: 2.48 TR Pk Grad: 25.00 RA Press: 3.00 RVSP: 28.00 Great Vessels Aorta Sinus of Valsalva: 3.40 2.0-3.[address] [place]: 2.80 1.7-3.4 cm Ao Asc: 3.40 2.1-3.4 cm Updated in Other Vendor System with Status of Final Geremias Jett MD electronically signed on 06/13/2023 9:52:02 AM with status of Final
== END ==
LOC: HO.CARD 10:50
PROVIDERS: PCP Internal Medicine; Visit Provider Internal Medicine Cardiovascular Disease
DX: I48.0 Paroxysmal atrial fibrillation (principal)
CPT/HCPCS: 93306

== ENCOUNTER → 2023-06-10 10:52 | Outpatient (BNV) | payer OTHER, SELFPAY | PROVIDERS: PCP Internal Medicine; Visit Provider Internal Medicine Cardiovascular Disease | DX: I34.81 Nonrheumatic mitral (valve) annulus calcification (principal) | CPT/HCPCS: 93306 ==

== ENCOUNTER → 2023-08-08 08:51 | Outpatient (BNVA) | payer OTHER, SELFPAY | PROVIDERS: PCP Internal Medicine; Visit Provider Internal Medicine Cardiovascular Disease ==

== ENCOUNTER 2023-09-16 11:46 | Outpatient (REF) | payer OTHER, SELFPAY | END 2023-09-16 11:47 | disposition home or self-care (01) | LOC: HO.MAMMO 11:46 | PROVIDERS: PCP Internal Medicine; Visit Provider Internal Medicine | DX: Z12.31 Encounter for screening mammogram for malignant neoplasm of breast (principal) | CPT/HCPCS: 77063; 77067 ==

== ENCOUNTER → 2023-09-16 12:00 | Outpatient (BNV) | payer OTHER, SELFPAY | PROVIDERS: PCP Internal Medicine; Visit Provider Radiology Diagnostic Radiology | DX: Z12.31 Encounter for screening mammogram for malignant neoplasm of breast (principal) | CPT/HCPCS: 77063; 77067 ==

== ENCOUNTER 2023-09-29 07:54 | Outpatient (REF) | payer OTHER, SELFPAY ==
[2023-09-29 08:08] LABS: MANUAL DIFF FLAG NO
[2023-09-29 08:14] LABS: Basophils Percent Auto 0.8 % (0-2); Eosinophils Absolute Auto 0.1 X10*3/uL (0.0-0.4); Eosinophils Percent Auto 3.8 % (0-4); Hematocrit 37.9 % (37.0-47.0); Hemoglobin 12.4 g/dl (12.0-16.0); Lymphocytes Absolute Auto 1.8 X10*3/uL (1.2-4.9); Lymphocytes Percent Auto 49.5 % (20-40); Mean Corpuscular HGB Conc 32.7 g/dl (31.0-35.0); Mean Corpuscular Hemoglobin 31.4 pg (27.0-33.0); Mean Corpuscular Volume 95.9 fL (80.0-98.0); Mean Platelet Volume 9.9 fL (9.4-12.3); Monocytes Absolute Auto 0.3 X10*3/uL (0.1-1.2); Monocytes Percent Auto 8.1 % (2-11); Neutrophils Absolute Auto 1.4 x10*3/uL (2.0-8.3); Neutrophils Percent Auto 37.8 % (45-73); Platelet Count 206 X10*3/uL (160-400); Red Blood Count 3.95 X10*6/uL (4.20-5.50); Red Cell Distribution Width 13.1 % (11.0-16.0); White Blood Count 3.7 X10*3/uL (4.8-10.8)
[2023-09-29 09:26] LABS: Alanine Aminotransferase 18 U/L (0-31); Albumin Level 3.6 g/dL (3.5-5.0); Alkaline Phosphatase 47 U/L (39-117); Anion Gap 11 (12-20); Aspartate Amino Transferase 23 U/L (5-31); Bilirubin Total 0.5 mg/dL (0.0-1.0); Blood Urea Nitrogen 18 mg/dL (9-16); Carbon Dioxide 28 mmol/L (22-29); Chloride 106 mmol/L (96-108); Cholesterol 139 mg/dL (<200); Estimated Glomerular Filt Rate > 60; Glucose Fasting 85 mg/dL (60-99); HDL Cholesterol 48 mg/dL (>40); LDL Cholesterol Calculated 75 mg/dL (<100); Potassium 3.7 mmol/L (3.3-5.1); Sodium 141 mmol/L (135-145); Triglycerides 84 mg/dL (<150)
== END 2023-09-29 07:55 | disposition home or self-care (01) ==
LOC: HO.LAB 07:54
PROVIDERS: PCP Internal Medicine; Visit Provider Internal Medicine
DX: I10 Essential (primary) hypertension (principal); E78.00 Pure hypercholesterolemia, unspecified; M19.90 Unspecified osteoarthritis, unspecified site
CPT/HCPCS: 36415; 80053; 80061; 85025

== ENCOUNTER 2023-11-14 10:37 | Outpatient (AMB) | payer OTHER, SELFPAY ==
[2023-11-14 11:16] VITALS: BP 134/80; PULSE 66; BMI 36.7
--- NOTE | 2023-11-14 11:16 | A.OFFVIS_ITS ---
Intake Vital Signs 11/14/23 11:16 Height 5 ft 1 in Weight 194 lb 0.108 oz BMI 36.7 BP 134/80 Blood Pressure Location Lt brachial Position Sitting Pulse 66 Intake Visit Reasons: 6 MON FUP W/ EKG Intake Note: 6 month follow-up with ekg feeling good Rn Triage Required: No Allergies No Known Allergies [No Known Allergies*] Allergy (Verified 01/13/23 13:54) Medication List - Last Reconciled 11/14/23 by Lee Barajas MD amlodipine 5 mg PO DAILY ascorbate calcium (vitamin C) 500 mg PO DAILY calcium carbonate (Calcium 500) 500 mg PO DAILY dabigatran etexilate (Pradaxa) 150 mg PO BID 90 days dronedarone 400 mg PO BID lisinopril 40 mg PO DAILY multivitamin 1 tab PO DAILY pravastatin 40 mg PO DAILY HPI HPI Comments History of Present Illness Details Sister Vera comes for follow-up. She has been doing very well from cardiac perspective. She says her right knee arthritis is bothering and limiting her from working and exercising. Otherwise she has been doing well. She has had no cardiac symptoms. Denies any episodes of atrial fibrillation. Denies any shortness of breath. No exertional chest pain. No orthopnea, PND, leg edema. No bleeding issues or neurologic events. Takes all her medications regularly. Recent renal function was within normal limits. [facility] Medical History Epidermal cyst of face Paroxysmal atrial fibrillation HTN (hypertension) Right bundle branch block (RBBB) on electrocardiogram (ECG) Surgical History History of total knee replacement (~2014) History of tonsillectomy Family History Father Pancreatic cancer Mother Stroke CHF (congestive heart failure) Diabetes mellitus Brother Cardiovascular disease Social History Alcohol intake: current Alcohol intake frequency: holidays/special occasions only Alcohol type: wine Patient Tobacco Use Status: Never used Tobacco Review of Systems Const Denies chills, Denies fatigue, Denies fever(s), Denies frequent falls, Denies weakness, Denies weight gain and Denies weight loss ENT Denies dizziness Card Denies chest pain, Denies leg edema, Denies lightheadedness, Denies palpitations, Denies dyspnea, Denies dyspnea on exertion, Denies orthopnea and Denies other (loss of consciousness) Resp Denies cough, Denies dyspnea and Denies dyspnea on exertion GI Denies hematochezia and Denies change in stool character Musc Denies abnormal gait, Denies muscle weakness, Denies numbness, Denies radiating pain into limb and Denies tingling Neuro Denies abnormal gait, Denies dizziness, Denies frequent falls, Denies numbness, Denies tingling and Denies weakness Endo Denies fatigue and Denies palpitations Physical Exam Vital Signs: Last Vital Signs Pulse 66 11/14/23 11:16 BP 134/80 11/14/23 11:16 BMI result Body Mass Index 36.7 Const General: comfortable, alert and awake Nutritional Appearance: obese Orientation/consciousness: oriented to person and patient oriented x3 Limitations: no limitations HEENT Head: Yes normocephalic and Yes atraumatic Neck Neck: Yes trachea midline, Yes supple and Yes no JVD Chest Chest palpation & inspection: normal inspection of the chest Resp Effort & Inspection: normal respiratory effort Auscultation: clear to auscultation bilaterally Cardio Jugular venous distension: no JVD Palpation: normal PMI Rate: regular rate Rhythm: regular rhythm Heart sounds: S1 normal heart sound present and S2 normal heart sound present Skin General skin exam: ecchymosis Neuro General: oriented to person, patient oriented x3 and no focal motor deficits Extrem General: Yes no clubbing, cyanosis or edema Psych Appearance: grossly normal Office Procedures EKG Details: EKG shows normal sinus rhythm with right bundle and left anterior fascicular block, unchanged from before at 66 beats per minute [id number], Complete Assessment & Plan Assessment & Plan (1) Paroxysmal atrial fibrillation: Code(s): I48.0 - Paroxysmal atrial fibrillation Plan: Highly symptomatic paroxysmal atrial fibrillation has done well with rhythm control approach will continue pursue rhythm control approach aggressively. Has done well with Multaq therapy. Continue Multaq. Will need EKGs every 3 months. Continue full oral anticoagulation, currently on dabigatran 150 mg b.i.d.. Quarterly renal function test should be pursued. If develops any significant bleeding issues, switch to oral Eliquis therapy. Continue aggressive risk factor modification with continued exercise and weight loss program along with renewed aggressive control blood pressure. (2) HTN (hypertension): Code(s): I10 - Essential (primary) hypertension Plan: Longstanding hypertension which is currently well optimized advised to monitor blood pressure at home maintain a log. Goal blood pressure less than 130/84. Low-salt diet was discussed advised to continue to participate in regular physical activity and weight loss program. (3) Bifascicular block: Code(s): I45.2 - Bifascicular block Plan: Bifascicular block which has been constant and old. No change in therapy. Continue monitor and advised to call me with any new symptoms. EKGs every 3 months with pursued as above. Will follow up in the clinic in 3 months for EKG in 6 months with me. Thank you for allowing me to partake in her care Coding Level of Care Code Est Pt Level 4 (21242) Diagnoses Paroxysmal atrial fibrillation I48.0 HTN (hypertension) I10 Bifascicular block I45.2 CPT Codes EKG - CPT: 51250-[id number], Complete ([id number])
== END 2023-11-14 11:37 | disposition home or self-care (01) ==
PROVIDERS: PCP Internal Medicine; Visit Provider Internal Medicine Cardiovascular Disease
DX: I48.0 Paroxysmal atrial fibrillation (principal); I10 Essential (primary) hypertension; I45.2 Bifascicular block
CPT/HCPCS: 93010; 99214

== ENCOUNTER → 2023-11-14 11:15 | Outpatient (BNVA) | payer OTHER, SELFPAY | PROVIDERS: PCP Internal Medicine; Visit Provider Internal Medicine Cardiovascular Disease | DX: I48.0 Paroxysmal atrial fibrillation (principal); I10 Essential (primary) hypertension; I45.2 Bifascicular block | CPT/HCPCS: 93005; 99212 ==

== ENCOUNTER 2023-11-28 09:32 | Outpatient (AMB) | payer OTHER, SELFPAY ==
[2023-11-28 09:51] VITALS: BMI 36.7
--- NOTE | 2023-11-28 09:51 | MHC.OFFVIS ---
Intake Vital Signs 11/28/23 09:51 Height 5 ft 1 in Weight 194 lb BMI 36.7 Intake Visit Reasons: OV-right knee pain-follow up Intake Note: Vera is a 83 year old female who presents today for a follow up of her right knee OA. Her last injection was 01/13/23. Patient reports her last injection gave her no relief. Pain has increased and is limiting her everyday activities, she is also experiencing more pain with walking long distances, prolonged standing, and stairs. She is also unable to exercise due to her pains. Takes Tylenol which gives her mild relief. She is interested in trying gel injections. Allergies No Known Allergies [No Known Allergies*] Allergy (Verified 11/28/23 10:10) HPI OV-right knee pain-follow up HPI Details Vera is a 83 year old female who presents today for a follow up of her right knee OA. Her last injection was 01/13/23. Patient reports her last injection gave her no relief. Pain has increased and is limiting her everyday activities, she is also experiencing more pain with walking long distances, prolonged standing, and stairs. She is also unable to exercise due to her pains. Takes Tylenol which gives her mild relief. She is interested in trying gel injections. REPLACED BY [facility] Medical History Epidermal cyst of face Paroxysmal atrial fibrillation HTN (hypertension) Right bundle branch block (RBBB) on electrocardiogram (ECG) Surgical History History of total knee replacement (~2014) History of tonsillectomy Family History Father Pancreatic cancer Mother Stroke CHF (congestive heart failure) Diabetes mellitus Brother Cardiovascular disease Social History Alcohol intake: current Alcohol intake frequency: holidays/special occasions only Alcohol type: wine Patient Tobacco Use Status: Never used Tobacco Physical Exam Vital Signs: BMI result Body Mass Index 36.7 Extrem Other: Right knee with medial compartment tenderness to palpation and antalgic gait. Left knee midline incision clean dry and intact with no pain. Results Reviewed Results Reviewed: I personally reviewed relevant radiographs. Left total knee arthroplasty in expected post operative position with no hardware complications or evidence of loosening Right knee with loss of medial joint space c/w moderate to severe OA Assessment & Plan Assessment & Plan (1) Osteoarthritis of right knee: Code(s): M17.11 - Unilateral primary osteoarthritis, right knee Plan: This is an 83-year-old active and healthy woman with right knee osteoarthritis. She is limited in her daily activities and her quality of life is diminished. Steroid injections have not been helpful. I recommend viscosupplementation. If that is not sufficiently helpful she may want to consider arthroplasty sooner rather than later. Coding Level of Care Code Est Pt Level 4 (25098) Diagnoses Osteoarthritis of right knee M17.11
== END 2023-11-28 16:10 | disposition home or self-care (01) ==
PROVIDERS: PCP Internal Medicine; Visit Provider Orthopaedic Surgery
DX: M17.11 Unilateral primary osteoarthritis, right knee (principal)
CPT/HCPCS: 99214

== ENCOUNTER → 2023-11-28 09:32 | Outpatient (BNVA) | payer OTHER, SELFPAY | PROVIDERS: PCP Internal Medicine; Visit Provider Orthopaedic Surgery | DX: M17.11 Unilateral primary osteoarthritis, right knee (principal) | CPT/HCPCS: 99212 ==

== ENCOUNTER → 2024-01-02 07:51 | Outpatient (REF) | payer OTHER, SELFPAY ==
--- NOTE | ~2024-01-02 | NM_ITS ---
Lexiscan Myocardial perfusion study Indication: Atrial fibrillation, assess for coronary disease and ischemia Technique: The patient was brought in for a Lexiscan perfusion study on 01/02/2024 and was injected 0.4 mg of Lexiscan intravenously. Within a minute of this injection 25 mCi of sestamibi was given intravenously. Images were obtained using the SPECT gamma camera interlaced with the gating device. Images were obtained in supine position. Resting perfusion study was performed on 01/04/2024. Patient was administered 25 mCi of sestamibi intravenously at rest. Images were then obtained in supine position. Images were processed with the software and compared side to side in short axis, horizontal long axis and vertical long axis views. Total DLP 178mGy-cm. Findings: Raw acquisition reviewed. Arms by the patient's side. The stress perfusion study showed diminished tracer uptake along the mid to distal lateral wall. There is improvement with CT attenuation correction and hence could have components of soft tissue attenuation artifact. The gated study shows normal LV systolic function with calculated LVEF of 64%. LV cavity is normal in size. The gated study shows normal wall thickening and contraction of segments. Resting study shows no significant perfusion abnormality. Gating at rest reveals normal wall motion with ejection fraction at 44%-but visually appears normal The findings are consistent with moderate to severe reversible defect in the mid to distal lateral wall, adjacent inferolateral wall, apex. NM/NM cardiolite stress test Impression: 1. Myocardial perfusion imaging study shows moderate to severe ischemia in the mid to distal lateral wall, adjacent inferolateral wall, apex. There could also be contribution from soft tissue attenuation. 2. Gated LVEF is normal visually. 3. Transient ischemic dilatation not present. EKG component of the test reported separately.
--- NOTE | 2024-01-02 07:53 | CA_ITS ---
Acquisition Time: 2024-01-02 08:11:34 Total Exercise Time: 00:02:00 Test Indications: AFIB, RBBB Medications: SEE H Protocol: LEXISCAN Max HR: 086 BPM 62% of Pred: 137 BPM Max BP: 148/084 mmHG Max Work Load: 1.0 METS Pharmacological stress test with Lexiscna injection while sitting and kicking her legs, without anginal symptoms, with isolated PVCs and ventricular cuplet, with normotensive response to injection, with nondiagnoisitic EKGs. Aminophylline 75mg IVP given to reverse Lexiscan. Nuclear images pending. Test reviewed with Dr. Jett. Referred By: Lee Barajas Overread By: Danna Santillan
== END ==
LOC: HO.CARD 07:51
PROVIDERS: PCP Internal Medicine; Visit Provider Internal Medicine Cardiovascular Disease
DX: Z01.811 Encounter for preprocedural respiratory examination (principal); I48.0 Paroxysmal atrial fibrillation; I10 Essential (primary) hypertension
CPT/HCPCS: 78452; 93017; A9500; J0280; J2785

== ENCOUNTER → 2024-01-02 07:53 | Outpatient (BNV) | payer OTHER, SELFPAY | PROVIDERS: PCP Internal Medicine; Visit Provider Nurse Practitioner | DX: I48.91 Unspecified atrial fibrillation (principal) | CPT/HCPCS: 78452; 93016; 93018 ==

== ENCOUNTER → 2024-01-06 10:48 | Outpatient (BNVA) | payer OTHER, SELFPAY | PROVIDERS: PCP Internal Medicine; Visit Provider Orthopaedic Surgery ==

== ENCOUNTER 2024-02-02 12:58 | Outpatient (AMB) | payer OTHER, SELFPAY ==
--- NOTE | 2024-02-02 06:06 | MHC.OFFVIS ---
Vital Signs 02/02/24 13:14 Height 5 ft 1 in Weight 194 lb BMI 36.7 Intake Visit Reasons: R TKA w/NE 02/07/24 Intake Note: Vera an 83 year old female who presents today for a preoperative right knee TKA, DOS 02/07/24 NE. Pain management agreement reviewed and signed. Allergies No Known Allergies [No Known Allergies*] Allergy (Verified 02/02/24 13:12) Medication List - Last Reconciled 02/02/24 by Rita Gallegos PA-C acetaminophen 1,000 mg PO QID PRN amlodipine 5 mg PO DAILY ascorbate calcium (vitamin C) 500 mg PO DAILY calcium carbonate (Calcium 500) 500 mg PO DAILY dabigatran etexilate (Pradaxa) 150 mg PO BID 90 days dronedarone 400 mg PO BID lisinopril 40 mg PO BEDTIME multivitamin 1 tab PO DAILY pravastatin 40 mg PO BEDTIME [Stool Softener 2 tabs PO BEDTIME] walker Folding Front wheeled walker HPI Comments Details: Ms Rees presents to the office today for preop visit. She is scheduled for right total knee arthroplasty with Dr. Mac. She continues to have ongoing pain and difficulty with ambulation in the right knee, which is affecting her quality of life; therefore, she has elected to move forward with surgery. Patient did attend [facility] 9 years ago 2014 after her LT TKA w/ Dr Mac [facility] Medical History (Updated 01/30/24 @ 15:04 by Ruth Walker, RN) Urinary incontinence Hx of squamous cell carcinoma of skin Hx of skin cancer, basal cell Arthritis Ambulates with cane A-fib Epidermal cyst of face Paroxysmal atrial fibrillation HTN (hypertension) Right bundle branch block (RBBB) on electrocardiogram (ECG) Surgical History Hx of colonoscopy Hx of vein stripping Hx of bilateral cataract extraction History of total knee replacement (~2014) History of tonsillectomy Family History Father Pancreatic cancer Mother Stroke CHF (congestive heart failure) Diabetes mellitus Brother Cardiovascular disease Social History Household Members: Friend(s) Caregiver staying overnight: No Housing: Apartment Are you a primary district manager primary care sales to a significant other at home: No Do you presently have visiting nurse or other home services: No 75 years or older and lives alone: No Alcohol intake: current Alcohol intake frequency: holidays/special occasions only Alcohol type: wine Patient Tobacco Use Status: Never used Tobacco e-Cigarette/Vaping Use: Never Used Use of substances other than those prescribed or required for medical reasons: No Have you been hit, kicked, punched, or otherwise hurt by someone within the past year? If so, by whom?: No Review of Systems Const All systems reviewed & are unremarkable except as noted in HPI and below Physical Exam Vital Signs: BMI result Body Mass Index 36.7 Const General: cooperative and no acute distress Orientation/consciousness: patient oriented x3 HEENT Head: Yes normal to inspection, Yes normocephalic and Yes atraumatic Eyes General: appearance normal, both eyes and all related structures Neck Neck: Yes normal visual inspection and Yes no lymphadenopathy Resp Effort & Inspection: normal respiratory effort and able to speak in complete sentences Cardio Rate: regular rate Peripheral pulses: Peripheral pulses 2+ throughout GI Inspection: Yes normal to inspection Palpation (GI): Soft to palpation Skin General skin exam: no rashes or lesions noted Neuro General: patient oriented x3 Extrem Other: Skin intact, no open wounds. Right knee with medial compartment tenderness to palpation and antalgic gait. Psych Appearance: grossly normal Mental Status: mental status grossly normal Assessment & Plan Assessment & Plan (1) Osteoarthritis of right knee: Code(s): M17.11 - Unilateral primary osteoarthritis, right knee Category: Medical Plan I discussed in detail the procedure and what to expect pre and post operatively. We discussed the risks, benefits and alternatives to the surgery as well as the rehabilitation course. The risks; which include, but are not limited to infection, bleeding, nerve injury, ongoing pain, swelling, and stiffness, perioperative risk of injury to bones and soft tissues, and blood clots. I?ve answered all questions and with their understanding they have consented to move forward with Right total knee arthroplasty with Dr. Mac She will hold her pradaxa 3 days pre op Patient Instructions: Scribed for Rita Gallegos PA-C, by sandra Yoo scribe, on 02/02/2024 at 1:00 PM EST.? I, Rita Gallegos PA-C, have personally reviewed and agree with the information entered by the scribe. Coding Level of Care Code Est Pt Level 3 (75952) Diagnoses Osteoarthritis of right knee M17.11
[2024-02-02 13:14] VITALS: BMI 36.7
== END 2024-02-02 13:38 | disposition home or self-care (01) ==
PROVIDERS: PCP Internal Medicine; Visit Provider Physician Assistant
DX: M17.11 Unilateral primary osteoarthritis, right knee (principal)
CPT/HCPCS: 99214

== ENCOUNTER → 2024-02-02 12:58 | Outpatient (BNVA) | payer OTHER, SELFPAY | PROVIDERS: PCP Internal Medicine; Visit Provider Physician Assistant | DX: Z01.818 Encounter for other preprocedural examination (principal); M17.11 Unilateral primary osteoarthritis, right knee | CPT/HCPCS: 99212 ==

== ENCOUNTER 2024-02-07 08:39 | Inpatient (IN) | payer OTHER, SELFPAY ==
[2024-01-30 14:11] VITALS: BP 114/51; PULSE 93; RESP 16; O2SAT 96; BMI 38.2
--- NOTE | 2024-01-30 14:37 | P.CONAN_ITS ---
Documented by User: Brii Newell NP 02/03/24 12:05 HPI - Anesthesia Eval Consult details Narrative: 83yo F for Right Knee Replacement Total, 02/07/24 No recent illness No CP/SOB with walking. Activity limited to knee pain. Walks with cane s/p left knee with spinal/block 2014. No issues afib - pradax[place] [facility]. Cleared for surgery: Patient underwent myocardial perfusion imaging which shows moderate to severe ischemia in a small area of distal lateral wall consistent with branch vessel disease. She continues to have no new symptoms of angina. She is scheduled to undergo knee surgery. Discussed with Dr. Eaton as well as the patient, abnormal stress test increase the risk of surgery but this is not a prohibitive risk as this ischemia is not suggestive of large territory of ischemia. Cardiac catheterization is not going to change room attendant plan. A continue all her medications including amlodipine statins lisinopril dronedarone in the perioperative. Patient is optimized to undergo surgery with intermediate risk for perioperative cardiovascular morbidity mortality. This was discussed with the patient and she says her knee arthritis causes significant limitations to her activity level. Case reviewed with Dr Karen ANDERSON Active Problems Active Problems: All Active Problems Osteoarthritis of right knee (Acute) Bifascicular block (Acute) History of left knee replacement (Acute) Epidermal cyst of face (Acute) Paroxysmal atrial fibrillation (Acute) HTN (hypertension) (Acute) Past Medical History Medical History Urinary incontinence Hx of squamous cell carcinoma of skin Hx of skin cancer, basal cell Arthritis Ambulates with cane A-fib Epidermal cyst of face Paroxysmal atrial fibrillation HTN (hypertension) Right bundle branch block (RBBB) on electrocardiogram (ECG) Family History Family History Father Pancreatic cancer Mother Stroke CHF (congestive heart failure) Diabetes mellitus Brother Cardiovascular disease Family history of problems with anesthesia: No Surgical History Surgical History Hx of colonoscopy Hx of vein stripping Hx of bilateral cataract extraction History of total knee replacement (~2014) History of tonsillectomy History of Problems with Anesthesia: No Social History Social History Household Members: Friend(s) Housing: Apartment Are you a primary pet care technician to a significant other at home: No Do you presently have visiting nurse or other home services: No Alcohol intake: current Alcohol intake frequency: holidays/special occasions only Alcohol type: wine Patient Tobacco Use Status: Never used Tobacco e-Cigarette/Vaping Use: Never Used Use of substances other than those prescribed or required for medical reasons: No Have you been hit, kicked, punched, or otherwise hurt by someone within the past year? If so, by whom?: No Are you DNR?: No Advance Directives: No Advance Directives Information Provided: Yes Advance Directives on File: No Recently lost weight without trying: No Nutrition Risks: Surgical patient >75years Poor oral hygiene: No Meds Allergies Allergy/AdvReac Type Severity Reaction Status Date / Time No Known Allergies Allergy Verified 02/02/24 13:12 [No Known Allergies*] Home Medications ?Medication ?Instructions ?Recorded ?Confirmed ?Last Taken ?Type dronedarone 400 mg tablet 400 mg PO BID 09/01/20 02/07/24 02/07/24 07:00 History lisinopril 40 mg tablet 40 mg PO BEDTIME 09/01/20 02/07/24 Unknown History multivitamin 1 tab PO DAILY 09/01/20 02/07/24 Unknown History pravastatin 40 mg tablet 40 mg PO BEDTIME 09/01/20 02/07/24 Unknown History ascorbate calcium (vitamin C) 500 500 mg PO DAILY 04/16/21 02/07/24 Unknown History mg tablet calcium carbonate (Calcium 500) 500 mg PO DAILY 04/16/21 02/07/24 Unknown History amlodipine 5 mg tablet 5 mg PO DAILY 05/03/23 02/07/24 02/07/24 07:00 History Stool Softener 2 tab PO BEDTIME 01/30/24 02/07/24 Unknown History acetaminophen 500 mg tablet 1,000 mg PO QID PRN Pain 01/30/24 02/07/24 Unknown History Exam Height,Weight and Vital Signs: Height 5 ft Weight 88.8 kg Last Vital Signs Pulse 93 01/30/24 14:11 Resp 16 01/30/24 14:11 BP 114/51 L 01/30/24 14:11 Pulse Ox 96 01/30/24 14:11 O2 Del Method Room Air 01/30/24 14:11 Pertinent Lab Results Pertinent Lab Results: Lab Results 01/30/24 01/30/24 Range/Units 14:30 15:11 Nasal Screen MRSA (PCR) NEGATIVE (Negative) Nasal S. aureus Screen NEGATIVE (Negative) Nasal MRSA/S.aureus Interp SEE NOTE Blood Type O Positive Antibody Screen NEGATIVE Narrative Narrative: EKG 10/2023 normal sinus rhythm with right bundle and left anterior fascicular block, unchanged from before at 66 beats per minute NM cardiolite stress test 12/2023 Impression: 1. Myocardial perfusion imaging study shows moderate to severe ischemia in the mid to distal lateral wall, adjacent inferolateral wall, apex. There could also be contribution from soft tissue attenuation. 2. Gated LVEF is normal visually. 3. Transient ischemic dilatation not present. EKG component of the test reported separately ECHO 2022 Conclusions: - Normal left ventricular size and systolic function. There is normal left ventricular wall thickness. The visually estimated ejection fraction is between 60-65%. - Elevated filling pressures. There is moderate septal asymmetric hypertrophy. - Normal right ventricular cavity size and systolic function. Airway Mallampati Class: II TM Dist: >3cm Neck ROM: Limited (OA) Loose/Missing/Broken Teeth: No (perm bridge upper left, crowned molars) Heart: irreg, known afib Lungs: ctab Assessment and Plan Assessment Anesthesia Assessment: Anesthesia Plan Discussed and PAT Visit Final Anesthetic Review Family History of Problems with Anesthesia: No History of Problems with Anesthesia: No Documented by User: Claritza Vizcarra MD 02/07/24 09:52 [facility] Past Medical History Medical History Urinary incontinence Hx of squamous cell carcinoma of skin Hx of skin cancer, basal cell Arthritis Ambulates with cane A-fib Epidermal cyst of face Paroxysmal atrial fibrillation HTN (hypertension) Right bundle branch block (RBBB) on electrocardiogram (ECG) Family History Family History Father Pancreatic cancer Mother Stroke CHF (congestive heart failure) Diabetes mellitus Brother Cardiovascular disease Family history of problems with anesthesia: No Surgical History Surgical History Hx of colonoscopy Hx of vein stripping Hx of bilateral cataract extraction History of total knee replacement (~2014) History of tonsillectomy Social History Social History Household Members: Friend(s) Housing: Apartment Are you a primary pet care technician to a significant other at home: No Do you presently have visiting nurse or other home services: No Alcohol intake: current Alcohol intake frequency: holidays/special occasions only Alcohol type: wine Patient Tobacco Use Status: Never used Tobacco e-Cigarette/Vaping Use: Never Used Use of substances other than those prescribed or required for medical reasons: No Have you been hit, kicked, punched, or otherwise hurt by someone within the past year? If so, by whom?: No Are you DNR?: No Advance Directives: No Advance Directives Information Provided: Yes Advance Directives on File: No Recently lost weight without trying: No Nutrition Risks: Surgical patient >75years Poor oral hygiene: No Meds Allergies Allergy/AdvReac Type Severity Reaction Status Date / Time No Known Allergies Allergy Verified 02/02/24 13:12 [No Known Allergies*] Home Medications ?Medication ?Instructions ?Recorded ?Confirmed ?Last Taken ?Type dronedarone 400 mg tablet 400 mg PO BID 09/01/20 02/07/24 02/07/24 07:00 History lisinopril 40 mg tablet 40 mg PO BEDTIME 09/01/20 02/07/24 Unknown History multivitamin 1 tab PO DAILY 09/01/20 02/07/24 Unknown History pravastatin 40 mg tablet 40 mg PO BEDTIME 09/01/20 02/07/24 Unknown History ascorbate calcium (vitamin C) 500 500 mg PO DAILY 04/16/21 02/07/24 Unknown History mg tablet calcium carbonate (Calcium 500) 500 mg PO DAILY 04/16/21 02/07/24 Unknown Hist ory amlodipine 5 mg tablet 5 mg PO DAILY 05/03/23 02/07/24 02/07/24 07:00 History Stool Softener 2 tab PO BEDTIME 01/30/24 02/07/24 Unknown History acetaminophen 500 mg tablet 1,000 mg PO QID PRN Pain 01/30/24 02/07/24 Unknown History Assessment and Plan Assessment Anesthesia Assessment: Chart Reviewed Final Anesthetic Review Family History of Problems with Anesthesia: No NPO: Yes ASA Class: III Final Preanesthetic Review: No Changes in Pt Med Stat, Meds/Allgs Chart Reviewed, Consent Obtained/Reviewed and Anes Risks/Benef Reviewed Patient Risk: Intermediate Procedure Risk: Intermediate Anesthetic Plan Anesthetic Plan: Spinal and Regional Block Disposition: Standard PACU
[2024-01-30 16:19] LABS: MRSA Nasal PCR NEGATIVE (Negative); SA Nasal PCR NEGATIVE (Negative)
[2024-02-07] VITALS (10 sets, daily range): BP systolic 93–180; BP diastolic 37–90; PULSE 66–94; RESP 13–18; TEMP 36–37.2; O2SAT 94–99
--- NOTE | ~2024-02-07 | XR_ITS ---
EXAMINATION: XR KNEE, RIGHT CLINICAL INFORMATION: Right TKA evaluation COMPARISON: None available. TECHNIQUE: Four views of the right knee. FINDINGS: Postsurgical alterations in the soft tissues surrounding the right knee. The total knee prosthesis is intact. Alignment is preserved. XR/XR knee RT 2V IMPRESSION: Appropriate alignment of the right total knee arthroplasty.
--- NOTE | 2024-02-07 08:41 | P.DS_ITS ---
DS: Providers Provider Date of Service: 02/09/24 Primary care physician: Bar Eaton MD DS: Summary Hospital Course Hospital Course: The patient underwent a successful right total knee arthroplasty, they were t ransferred to PACU and then to the floor to recover. During their stay, their vitals were stable, afebrile at 97.5. Labs were unremarkable, H/H 10.9/32.2. POD 1 they were started on Aspirin 325mg po bid for DVT ppx, they also received Physical Therapy services twice a day. Prior to discharge, their dressing was clean dry and intact, and the plan was to be discharged to short term rehab for additional physical therapy and recovery assistance. Time Attestation Discharge Coordination Time (in mins): 30 Quality: Safe Use of Opioids Does Pt have an Active Cancer Diagnosis on the Problem List?: No Quality: Stroke Does the patient have a stroke diagnosis?: No Physical Exam Vital Signs: Vital Signs: Last Vital Signs Pulse 93 01/30/24 14:11 Resp 16 01/30/24 14:11 BP 114/51 L 01/30/24 14:11 Pulse Ox 96 01/30/24 14:11 O2 Del Method Room Air 01/30/24 14:11 BMI result Body Mass Index 38.2 Const: General: cooperative, healthy appearing and no acute distress Resp: Effort & Inspection: normal respiratory effort and able to speak in complete sentences Cardio: Rate: regular rate Peripheral pulses: Peripheral pulses 2+ throughout GI: Palpation (GI): Soft to palpation Skin: Lesions: no lesions Rashes: no rashes Extrem: Other: right knee dressing is c/d/i. Able to dorsi/plantar flex. Calf is supple and nontender. Sensation intact. Pedal pulse intact. Discharge Plan Discharge Anticipated Discharge Date/Time: 02/09/24 13:16 Patient Disposition: Xfer SNF Discharge Diagnosis: s/p RTKA Referrals: Jennifer Lowe PA-C [Physician Computer Numerical Control Machinist] - 1 Week Discharge Medications: New acetaminophen 325 mg Tablet 650 mg PO Q6H PRN (Reason: Pain, Mild (Pain Scale 1-3)) 30 Days Qty: 240 0RF celecoxib 200 mg Capsule 200 mg PO BID 30 Days Qty: 60 0RF docusate sodium 100 mg Capsule 100 mg PO BID 30 Days Qty: 60 0RF oxycodone 5 mg Tablet 5 mg PO Q4H PRN (Reason: Pain, Moderate(Pain Scale 4-6)) 7 Days Qty: 42 0RF Rx Instructions: Partial Fill upon patient request. Continued Pradaxa 150 mg capsule 150 mg PO BID 90 Days Qty: 180 3RF (DME) walker Misc See Rx Instructions .MEDSUPPLY Qty: 1 0RF Rx Instructions: Folding Front wheeled walker docusate sodium 100 mg Capsule 200 mg PO BEDTIME calcium carbonate 500 mg calcium (1,250 mg) Tablet 500 mg PO DAILY dronedarone 400 mg tablet 400 mg PO BID lisinopril 40 mg tablet 40 mg PO BEDTIME pravastatin 40 mg tablet 40 mg PO BEDTIME multivitamin Tablet 1 tab PO DAILY ascorbate calcium (vitamin C) 500 mg tablet 500 mg PO DAILY amlodipine 5 mg tablet 5 mg PO DAILY Discontinued acetaminophen 500 mg Tablet 1,000 mg PO QID PRN (Reason: Pain) Discharge Orders: Discharge Order (Routine); Ordered 02/09/24 Ordered By: Jennifer Lowe Diet: Advance to usual diet Activity on Discharge: Use cane or walker Stand Alone Forms: Patient Portal Discharge page Print Language: Portuguese Activity Restrictions/Additional Instructions: Physical Therapy for ROM 0-120, quad strength, gait training. Use walker for ambulation Limit stair climbing, No shower, No tub bath, No driving Continue anticoagulant x 6 weeks Keep Aquacel dressing clean, dry and intact. Follow up with orthopedics in 2 weeks Care Plan Goals: restore fxn to right knee Health Concerns: none Plan of Treatment: see above Assessment: stable for d/c
[2024-02-07] MEDS: Lactated Ringers 1,000 ML 100 ML IVCONT ×2 (09:34→14:30)
--- NOTE | 2024-02-07 09:42 | MHC.SHP ---
Pre-Procedural Eval Section A - 24 Hr Update-Section A only Date of Service: 02/07/24 The patient is an INPATIENT: No Changes since office visit: No Cold of Flu in the past 2 weeks, No New Medical Problems, No Changes in Medication and No Patient answered all questions The patient has been examined within 24 hours of the surgical procedure. The History & Physical has been completed within 30 days and I have reviewed it.: Yes Section B - Complete if H&P > 30 days Chief Complaint: RT TKA Allergies: Allergies Allergy/AdvReac Type Severity Reaction Status Date / Time No Known Allergies Allergy Verified 02/02/24 13:12 [No Known Allergies*] Plan I have reviewed the history and physical and performed a pertinent physical examination on my patient. No changes have occurred unless specified. Time Spent With Patient Time: Total time managing care of this patient today ____ minutes.
--- NOTE | 2024-02-07 12:24 | PM.OP ---
Brief Operative Note Date of Service: 02/07/24 Pre-op diagnosis: Right knee OA Post-op diagnosis: same Procedure: Right TKA Implants: [place] Triathlon posterior stabilized cemented 12/30/12/a Surgeon: Martín Mac MD Anesthesia: regional and spinal Was an Beverage Server used for this Procedure?: Yes Beverage Server: Rita Gallegos Estimated blood loss (mL): 50 Tourniquet time (min): 56 IV fluids (mL): 1,000 Pathology: other Condition: stable Disposition: PACU
--- NOTE | 2024-02-07 12:25 | P.OP_ITS ---
Operative Note Operative Note Date of Service: 02/07/24 Narrative: Date of Service: 02/07/24 Pre-op diagnosis: Right knee OA Post-op diagnosis: same Procedure: Right TKA Implants: [place] Triathlon posterior stabilized cemented 12/30/12ps/29a Surgeon: Martín Mac MD Anesthesia: regional and spinal Was an Tourist Cabin Keeper used for this Procedure?: Yes Tourist Cabin Keeper: Rita Gallegos Estimated blood loss (mL): 50 Tourniquet time (min): 56 IV fluids (mL): 1,000 Pathology: other Condition: stable Disposition: PACU Procedure in detail: The patient was brought to the operating room and prepped and draped in standard sterile fashion. A time-out was called to identify proper site proper procedure proper surgeon and IV antibiotics were administered. 1 g of IV tranexamic acid was administered. I began by making a midline incision to the retinaculum and performed a medial parapatellar arthrotomy. The patella was translated laterally and the knee was flexed up.The anterior and medial compartments were eburnated. I performed a small medial peel and resected the infrapatellar fat pad. Orwell's line was then used to drill my intramedullary femoral guide and my distal femur cut of 10 mm was made in 5 degrees of valgus while protecting the soft tissues. I then measured a # 5 femur and placed my 3 deg ER cutting guide and made my anterior posterior and chamfer cuts protecting the soft tissues at all times. I then made my box but removing the PCL. Once I was satisfied with my cuts I turned my attention to the tibia. I removed the meniscus medially and laterally and , using an external cutting guide, in line with the tibial crest and the third ray, I made my distal tibial cut in 0 deg slope of while protecting the posterior soft tissues at all times. An extension block was used to confirm appropriate amount of bony resection. I then sized a #4 tibia and once I was satisfied that there was complete tibial coverage I placed my trial and with the trial femur in place took the knee through range of motion. I was satisfied with the extension and flexion as well as the balance at 0, 30 and 90 degrees. I then turned my attention to the patella where I removed 1 cm from the undersurface of the patella and then trialed a 29a patellar button. Again the knee was taken through range of motion I was satisfied with the tracking. I then prepared the tibia with a drill and punch. A femoral bone plug was placed and the knee was irrigated copiously. I then cemented the patella, tibia and femur in standard fashion. Axial compression adn a clamp were used while the cement dried. Once the cement was hard on the back table all excess cement was removed and I trialed different inserts until I selected a #13ps insert. The final insert was placed. I irrigated copiously and local TXA was administered The knee was then closed with a running Quill suture, a 3 0 Vicryl and kaitlin on the skin. Patient was then placed in sterile dressing and brought to recovery room in stable condition there were no known complications.
--- NOTE | 2024-02-07 12:56 | PHA.MEDREC ---
Pharmacy Consult ? Medication Reconciliation Pharmacy has completed the medication reconciliation. Reviewed med rec done by nursing (Nery).
[2024-02-07] MEDS: 0.9 % Sodium Chloride Flush 3 ML SYRINGE IVFLUSH (14:39)
[2024-02-07 15:30] LABS: Creatinine Clr Calc Pharmacy 52.8; Estimated Glomerular Filt Rate > 60
--- NOTE | 2024-02-07 15:33 | HO.PM.IMCN ---
History of Present Illness Data of Consult Service Date: 02/07/24 Requesting physician: Rita Gallegos Primary Care Provider: Bar Eaton MD [facility] Reason for consult: medical management 83 year old female with history paroxysmal atrial fibrillation on pradaxa, CAD, HTN, HLD admitted to orthopedic surgery for management of OA R knee s/p TKA with consult placed to hospitalist service for medical H&P. She is resting sitting in chair reporting knee pain. Sr. Lyn Babcock at bedside. She has no other complaints at this time. She has been hypertensive since surgery but no cp, sob, lightheadedness, n/v, palpitations. Vitals are otherwise stable. Review of Systems Review of Systems: General: No fevers, malaise, unintentional weight loss HEENT: No blurred vision, diplopia. No sore throat, nasal congestion, rhinorrhea, sinus pain, ear pain Cardiovascular: No chest pain, palpitations, or leg edema Respiratory: No shortness of breath, wheezing, cough GI: No abdominal pain, nausea, vomiting, diarrhea, constipation, melena, hematochezia : No dysuria, hematuria, increased urinary frequency, decreased urinary output MSK: No myalgia, back pain. +knee pain Neuro: No headaches, weakness, paresthesias Skin: No rashes or lesions PMFSH Medical History Urinary incontinence Hx of squamous cell carcinoma of skin Hx of skin cancer, basal cell Arthritis Ambulates with cane A-fib Epidermal cyst of face Paroxysmal atrial fibrillation HTN (hypertension) Right bundle branch block (RBBB) on electrocardiogram (ECG) Family History Father Pancreatic cancer Mother Stroke CHF (congestive heart failure) Diabetes mellitus Brother Cardiovascular disease Surgical History Hx of colonoscopy Hx of vein stripping Hx of bilateral cataract extraction History of total knee replacement (~2014) History of tonsillectomy Social History Household Members: Other Household Members Other:: sister from [facility] Housing: Apartment Are you a primary animal care worker to a significant other at home: No Do you presently have visiting nurse or other home services: No Alcohol intake: current Alcohol intake frequency: holidays/special occasions only Alcohol type: wine Patient Tobacco Use Status: Never used Tobacco e-Cigarette/Vaping Use: Never Used Use of substances other than those prescribed or required for medical reasons: No Have you been hit, kicked, punched, or otherwise hurt by someone within the past year? If so, by whom?: No Do you feel safe in your current relationship?: Yes Is there a partner from a previous relationship who is making you feel unsafe now?: No Are you made to feel afraid or neglected: No Congregation Healthcare Practices: faith Are you DNR?: No Advance Directives: No Advance Directives Information Provided: Yes Advance Directives on File: No Do you have a plan to hurt others: No Plan Recently lost weight without trying: No Nutrition Risks: No Nutritional Risk Patient : No : No Poor oral hygiene: No Meds Allergies Allergy/AdvReac Type Severity Reaction Status Date / Time No Known Allergies Allergy Verified 02/02/24 13:12 [No Known Allergies*] Active Medications: Current Medications Acetaminophen (Acetaminophen 325 Mg Tablet) 650 mg PO Q6H PRN PRN Reason: Pain, Mild (Pain Scale 1-3) Amlodipine Besylate (Amlodipine Besylate 5 Mg Tablet) 5 mg PO DAILY NURIA; Protocol Amlodipine Besylate (Amlodipine Besylate 2.5 Mg Tablet) 2.5 mg PO ONCE ONE; Protocol Stop: 02/07/24 15:33 Celecoxib (Celecoxib 200 Mg Capsule) 200 mg PO BID [facility] Docusate Sodium (Docusate Sodium 100 Mg Capsule) 100 mg PO BID [facility] Dronedarone (Dronedarone Hcl 400 Mg Tablet) 400 mg PO BID [facility] Enoxaparin Sodium (Enoxaparin Sodium 40 Mg/0.4 Ml Syringe) 40 mg SUBCUT Q24H [facility] Hydromorphone HCl (Hydromorphone Hcl 0.5 Mg/0.5 Ml Syringe) 0.25 mg IVPUSH Q4H PRN; Protocol PRN Reason: Pain, Severe (Pain Scale 7-10) Lactated Ringer's (Lr) 1,000 mls @ 100 mls/hr IVCONT .Q10H NURIA Stop: 02/08/24 12:29 Last Admin: 02/07/24 14:30 Dose: 100 mls/hr Cefazolin Sodium/Dextrose (Ancef) 2 gm in 50 mls @ 100 mls/hr IV POSTOP ONE Stop: 02/07/24 17:29 Ondansetron HCl (Ondansetron Hcl 4 Mg/2 Ml Vial) 4 mg IVPUSH Q8H PRN PRN Reason: Nausea and Vomiting Oxycodone HCl (Oxycodone Hcl Immed Release 5 Mg Tablet) 5 mg PO Q4H PRN PRN Reason: Pain, Moderate(Pain Scale 4-6) Sodium Chloride (0.9 % Sodium Chloride Flush 3 Ml Syringe) 3 ml IVFLUSH [facility] Last Admin: 02/07/24 14:39 Dose: 3 ml Home Medications ?Medication ?Instructions ?Recorded ?Confirmed ?Last Taken ?Type dronedarone 400 mg tablet 400 mg PO BID 09/01/20 02/07/24 02/07/24 07:00 History lisinopril 40 mg tablet 40 mg PO BEDTIME 09/01/20 02/07/24 Unknown History multivitamin 1 tab PO DAILY 09/01/20 02/07/24 Unknown History pravastatin 40 mg tablet 40 mg PO BEDTIME 09/01/20 02/07/24 Unknown History ascorbate calcium (vitamin C) 500 500 mg PO DAILY 04/16/21 02/07/24 Unknown History mg tablet amlodipine 5 mg tablet 5 mg PO DAILY 05/03/23 02/07/24 02/07/24 07:00 History acetaminophen 500 mg tablet 1,000 mg PO QID PRN Pain 01/30/24 02/07/24 Unknown History calcium carbonate 500 mg PO DAILY 02/07/24 02/07/24 Unknown History docusate sodium 100 mg capsule 200 mg PO BEDTIME 02/07/24 02/07/24 Unknown History Physical Exam Vital Signs and Narrative: Vital Signs: Last Vital Signs Temp 98.2 F 02/07/24 13:36 Pulse 70 02/07/24 13:36 Resp 16 02/07/24 13:36 BP 165/90 H 02/07/24 13:36 Pulse Ox 95 02/07/24 13:36 O2 Del Method Room Air 02/07/24 13:36 O2 Flow Rate 6 02/07/24 12:36 BMI result Body Mass Index 38.2 Constitutional - Awake and Alert, No apparent distress Eyes - PERRLA, EOMI Cardiovascular - S1S2, RRR, No edema Respiratory - Normal lung expansion, Normal respiratory effort, No respiratory distress, CTA bilaterally Gastrointestinal - NT / ND; +BS; No rebound or guarding Extremities - no calf tenderness bilaterally, no swelling Skin - Warm/Dry Neurological - Alert & oriented x3 Results Labs 02/07/24 14:56 Labs: Laboratory Results - last 24 hr 02/07/24 14:56 Estim Creat Clear Calc 52.8 Estimated GFR > 60 Assessment and Plan (1) Osteoarthritis of right knee: Status: Acute Plan 83 year old female with history paroxysmal atrial fibrillation on pradaxa, CAD, HTN, HLD admitted to orthopedic surgery for management of OA R knee s/p TKA with consult placed to hospitalist service for medical H&P. #OA R Knee s/p TKA POD0 -plan per ortho surgery #HTN -bp elevated, give 2.5mg additional amlodipine now, continue 5mg daily -hold lisinopril for now to prevent post op hypotension #Paroxysmal atrial fibrillation -continue multaq. Resume pradaxa at discretion of orthopedic surgery #HLD/CAD -statin Thank you for this consult. We will continue following along with you
[2024-02-07] MEDS: HYDROmorphone HCl 0.5 MG/0.5 ML SYRINGE 0.25 MG IVPUSH (15:39)
--- NOTE | 2024-02-07 16:01 | PC.NURSE ---
Patient urinating frequently,4 times ambulated to bathroom in 1 hour period,bladder scan 83 ml,SOULEYMANE Thompson notified,IV fluid rate decreased,will offer purewick to patient ,SOULEYMANE Thompson said it was ok to use per ortho,CUBA Byrd notified.
[2024-02-07] MEDS: Lactated Ringers 1,000 ML 75 ML IVCONT (16:06)
[2024-02-07] MEDS: ceFAZolin Sodium/Dextrose,Iso 2 GM/50 ML PIGGYBACK IV (16:07)
[2024-02-07] MEDS: amLODIPine Besylate 2.5 MG TABLET PO (16:09)
[2024-02-07] MEDS: oxyCODONE HCl Immed Release 5 MG TABLET PO (18:22)
[2024-02-07] MEDS: Dronedarone HCl 400 MG TABLET PO (20:35)
[2024-02-07] MEDS: Celecoxib 200 MG CAPSULE PO (20:35)
[2024-02-07] MEDS: Docusate Sodium 100 MG CAPSULE PO (20:35)
[2024-02-07] MEDS: Acetaminophen 325 MG TABLET 650 MG PO (23:35)
[2024-02-08] VITALS (7 sets, daily range): BP systolic 130–178; BP diastolic 60–82; PULSE 70–74; RESP 16–18; TEMP 36.2–36.8; O2SAT 93–96
[2024-02-08] MEDS: oxyCODONE HCl Immed Release 5 MG TABLET PO ×2 (03:10→08:11)
[2024-02-08] MEDS: Lactated Ringers 1,000 ML 75 ML IVCONT (03:58)
[2024-02-08 06:17] LABS: MANUAL DIFF FLAG NO
[2024-02-08 06:41] LABS: Anion Gap 10 (12-20); Blood Urea Nitrogen 21 mg/dL (9-16); Calcium 8.6 mg/dL (8.4-10.2); Carbon Dioxide 26 mmol/L (22-29); Chloride 106 mmol/L (96-108); Creatinine Clr Calc Pharmacy 54.8; Estimated Glomerular Filt Rate > 60; Glucose Fasting 122 mg/dL (60-99); Potassium 3.7 mmol/L (3.3-5.1); Sodium 138 mmol/L (135-145)
[2024-02-08 06:55] LABS: Basophils Percent Auto 0.1 % (0-2); Hematocrit 34.6 % (37.0-47.0); Hemoglobin 11.8 g/dl (12.0-16.0); Imm Gran Abs Auto 0.02 X10*3/uL (0.00-0.03); Imm Gran Pct Auto 0.3 % (0.0-0.4); Lymphocytes Absolute Auto 1.1 X10*3/uL (1.2-4.9); Lymphocytes Percent Auto 14.8 % (20-40); Mean Corpuscular HGB Conc 34.1 g/dl (31.0-35.0); Mean Corpuscular Hemoglobin 32.3 pg (27.0-33.0); Mean Corpuscular Volume 94.8 fL (80.0-98.0); Mean Platelet Volume 10.5 fL (9.4-12.3); Monocytes Absolute Auto 0.7 X10*3/uL (0.1-1.2); Monocytes Percent Auto 9.3 % (2-11); Neutrophils Absolute Auto 5.5 x10*3/uL (2.0-8.3); Neutrophils Percent Auto 75.5 % (45-73); Platelet Count 182 X10*3/uL (160-400); Red Blood Count 3.65 X10*6/uL (4.20-5.50); Red Cell Distribution Width 12.7 % (11.0-16.0); White Blood Count 7.3 X10*3/uL (4.8-10.8)
--- NOTE | 2024-02-08 07:59 | P.PNOP_ITS ---
Subjective Subjective Date of Service: 02/08/24 Interval history: POD1 s/p RTKA Patient is resting in bed comfortably No overnight events Pain is managed - block still in effect No additional complaints Physical Exam Vital Signs: Vital Signs: Last Vital Signs Temp 98.3 F 02/08/24 03:15 Pulse 72 02/08/24 03:15 Resp 18 02/08/24 03:15 BP 160/80 H 02/08/24 03:15 Pulse Ox 95 02/08/24 03:15 O2 Del Method Room Air 02/08/24 03:15 O2 Flow Rate 6 02/07/24 12:36 BMI result Body Mass Index 38.2 Const: General: cooperative, healthy appearing and no acute distress Resp: Effort & Inspection: normal respiratory effort and able to speak in com plete sentences Cardio: Rate: regular rate Peripheral pulses: Peripheral pulses 2+ throughout GI: Palpation (GI): Soft to palpation Skin: Lesions: no lesions Rashes: no rashes Extrem: Other: right knee dressing is c/d/i. Able to dorsi/plantar flex. Calf is supple and nontender. Sensation intact. Pedal pulse intact. Procedures Date of Service Date of Service: 02/08/24 Progress Note: A&P Assessment and plan (1) Status post total knee replacement, right: Status: Acute Plan Continue pain mgmnt Begin ASA for dvt ppx begin PT for RTKA Dispo planning-PT, pain mgmnt Patient will need continued hospitalization for pain management, block is still in effect. Patient will additionally need continued physical therapy for education and safe gait training. She has a past medical history of A. Fib taking Pradaxa, which may resume 48 hours post op. Time Spent With Patient Time: Total time managing care of this patient today ____ minutes. Quality Stroke Does the patient have a stroke diagnosis?: No VTE Prior VTE?: No VTE Risk Level:: Medical - moderate - high VTE Device Contraindication: N/A - Device Ordered VTE Drug Contraindication: N/A - Med Ordered
[2024-02-08] MEDS: Dronedarone HCl 400 MG TABLET PO ×2 (08:11→20:12)
[2024-02-08] MEDS: Celecoxib 200 MG CAPSULE PO ×2 (08:11→20:11)
[2024-02-08] MEDS: amLODIPine Besylate 10 MG TABLET PO (08:12)
[2024-02-08] MEDS: Docusate Sodium 100 MG CAPSULE PO ×2 (08:12→20:11)
--- NOTE | 2024-02-08 09:30 | MHC.CM.PN ---
PATIENT ASKS FOR REFERRAL TO [facility], NOW PLACED. [facility] IS WILLING TO START THE AUTH PROCESS FOR A BED. ANTICIPATED DC IS Tuesday02/09/24. NO HCP ON FILE IMM 02/07 IN CHART
--- NOTE | 2024-02-08 09:37 | HO.PM.IMPN ---
Subjective Subjective Date of Service: 02/08/24 Interval History: Seen in follow-up for medical consult Interval history: Reports pain is well-controlled. Remains hypertensive. No complaints at this time Review of Systems Review of Systems: Yes all other systems are reviewed and are negative Physical Exam Vital Signs: Vital Signs: Last Vital Signs Temp 97.1 F 02/08/24 07:53 Pulse 73 02/08/24 07:53 Resp 16 02/08/24 07:53 BP 178/82 H 02/08/24 07:53 Pulse Ox 94 02/08/24 07:53 O2 Del Method Room Air 02/08/24 07:53 O2 Flow Rate 6 02/07/24 12:36 BMI result Body Mass Index 38.2 Constitutional - Awake and Alert, No apparent distress Eyes - PERRLA, EOMI Cardiovascular - S1S2, RRR, No edema Respiratory - Normal lung expansion, Normal respiratory effort, No respiratory distress, CTA bilaterally Extremities - no calf tenderness bilaterally, no swelling Skin - Warm/Dry Neurological - Alert & oriented x3 Psychological - Appropriate affect Objective Data Active Medications Acetaminophen (Acetaminophen 325 Mg Tablet) 650 mg PO Q6H PRN PRN Reason: Pain, Mild (Pain Scale 1-3) Last Admin: 02/07/24 23:35 Dose: 650 mg Documented By: SOURAV Amlodipine Besylate (Amlodipine Besylate 10 Mg Tablet) 10 mg PO DAILY [facility]; Protocol Last Admin: 02/08/24 08:12 Dose: 10 mg Documented By: ZOHREH Celecoxib (Celecoxib 200 Mg Capsule) 200 mg PO BID [facility] Last Admin: 02/08/24 08:11 Dose: 200 mg Documented By: ZOHREH Docusate Sodium (Docusate Sodium 100 Mg Capsule) 100 mg PO BID [facility] Last Admin: 02/08/24 08:12 Dose: 100 mg Documented By: ZOHREH Dronedarone (Dronedarone Hcl 400 Mg Tablet) 400 mg PO BID [facility] Last Admin: 02/08/24 08:11 Dose: 400 mg Documented By: ZOHREH Enoxaparin Sodium (Enoxaparin Sodium 40 Mg/0.4 Ml Syringe) 40 mg SUBCUT Q24H [facility] Hydromorphone HCl (Hydromorphone Hcl 0.5 Mg/0.5 Ml Syringe) 0.25 mg IVPUSH Q4H PRN; Protocol PRN Reason: Pain, Severe (Pain Scale 7-10) Last Admin: 02/07/24 15:39 Dose: 0.25 mg Documented By: ARELIS Lactated Ringer's (Lr) 1,000 mls @ 75 mls/hr IVCONT .[id number] [facility] Stop: 02/08/24 12:29 Last Admin: 02/08/24 03:58 Dose: 75 mls/hr Documented By: ODRISInna Ondansetron HCl (Ondansetron Hcl 4 Mg/2 Ml Vial) 4 mg IVPUSH Q8H PRN PRN Reason: Nausea and Vomiting Oxycodone HCl (Oxycodone Hcl Immed Release 5 Mg Tablet) 5 mg PO Q4H PRN PRN Reason: Pain, Moderate(Pain Scale 4-6) Last Admin: 02/08/24 08:11 Dose: 5 mg Documented By: ZOHREH Sodium Chloride (0.9 % Sodium Chloride Flush 3 Ml Syringe) 3 ml IVFLUSH QSHIFT [facility] Last Admin: 02/08/24 08:15 Dose: Not Given Documented By: ZOHREH Non-Admin Reason: IV Running Labs 02/08/24 05:45 02/08/24 05:45 Labs: Laboratory Results - last 24 hr 02/07/24 02/08/24 14:56 05:45 MCV 94.8 MCH 32.3 MCHC 34.1 RDW 12.7 Plt Count 182 MPV 10.5 Immature Gran % (Auto) 0.3 Neut % (Auto) 75.5 H Lymph % (Auto) 14.8 L [place] % (Auto) 9.3 Eos % (Auto) 0.0 Baso % (Auto) 0.1 Lymph # (Auto) 1.1 L [place] # (Auto) 0.7 Eos # (Auto) 0.0 Baso # (Auto) 0.0 Abs Immat Gran (auto) 0.02 Absolute Neuts (auto) 5.5 Absolute Nucleated RBC 0.000 Nucleated RBC % (auto) 0.0 Anion Gap 10 L Estim Creat Clear Calc 52.8 54.8 Estimated GFR > 60 > 60 Fasting Glucose 122 H Calcium 8.6 Assessment and Plan (1) Status post total knee replacement, right: Status: Acute Plan 83 year old female with history paroxysmal atrial fibrillation on pradaxa, CAD, HTN, HLD admitted to orthopedic surgery for management of OA R knee s/p TKA with consult placed to hospitalist service for medical H&P. #OA R Knee s/p TKA POD0 -plan per ortho surgery #HTN -bp remains elevated. Give amlodipine 10mg now (on 2.5mg home dose). Reswume lisinopril 40mg bedtime -follow bp #Paroxysmal atrial fibrillation -continue multaq. Resume pradaxa at discretion of orthopedic surgery #HLD/CAD -statin Thank you for this consult. We will continue following along with you Quality Stroke Does the patient have a stroke diagnosis?: No VTE Prior VTE?: No VTE Risk Level:: Medical - moderate - high VTE Device Contraindication: N/A - Device Ordered VTE Drug Contraindication: N/A - Med Ordered
--- NOTE | 2024-02-08 11:00 | PC.NURSE ---
Physcial therapy worked with patient, reported low BP upon standing, patient stated she felt lightheaded and had to sit down.
[2024-02-08] MEDS: Enoxaparin Sodium 40 MG/0.4 ML SYRINGE SUBCUT (13:22)
--- NOTE | 2024-02-08 15:25 | HO.POSTANES ---
Post Anesthesia Evaluation Post Anesthesia Evaluation Date of Service: 02/08/24 Vital Signs: Vital Signs Temp Pulse Resp BP Pulse Ox O2 Del Method 02/08/24 15:08 97.9 F 70 16 130/60 94 02/08/24 12:00 97.1 F 73 16 137/65 96 Room Air 02/08/24 07:53 97.1 F 73 16 178/82 H 94 Room Air Anesthesia: Spinal Mental Status: Awake Pain Control: Satisfactory Nausea/Vomiting: None Hydration: Adequate Anesthesia-Related Issues: No Anes. Related Issues
[2024-02-08] MEDS: HYDROmorphone HCl 0.5 MG/0.5 ML SYRINGE 0.25 MG IVPUSH (19:19)
[2024-02-08] MEDS: lisinopriL 40 MG TABLET PO (20:11)
[2024-02-08] MEDS: 0.9 % Sodium Chloride Flush 3 ML SYRINGE IVFLUSH (20:11)
[2024-02-09] MEDS: Acetaminophen 325 MG TABLET 650 MG PO ×2 (01:14→09:02)
[2024-02-09] MEDS: oxyCODONE HCl Immed Release 5 MG TABLET PO ×2 (01:14→09:01)
[2024-02-09 03:33] VITALS: BP 152/65; PULSE 70; RESP 20; TEMP 36.4; O2SAT 94
[2024-02-09 06:36] LABS: MANUAL DIFF FLAG NO
[2024-02-09 06:51] LABS: Basophils Percent Auto 0.4 % (0-2); Eosinophils Absolute Auto 0.1 X10*3/uL (0.0-0.4); Eosinophils Percent Auto 1.1 % (0-4); Hematocrit 32.2 % (37.0-47.0); Hemoglobin 10.9 g/dl (12.0-16.0); Imm Gran Abs Auto 0.02 X10*3/uL (0.00-0.03); Imm Gran Pct Auto 0.4 % (0.0-0.4); Lymphocytes Absolute Auto 1.5 X10*3/uL (1.2-4.9); Lymphocytes Percent Auto 26.1 % (20-40); Mean Corpuscular HGB Conc 33.9 g/dl (31.0-35.0); Mean Corpuscular Hemoglobin 32.7 pg (27.0-33.0); Mean Corpuscular Volume 96.7 fL (80.0-98.0); Mean Platelet Volume 10.6 fL (9.4-12.3); Monocytes Absolute Auto 0.5 X10*3/uL (0.1-1.2); Monocytes Percent Auto 9.5 % (2-11); Neutrophils Absolute Auto 3.5 x10*3/uL (2.0-8.3); Neutrophils Percent Auto 62.5 % (45-73); Platelet Count 150 X10*3/uL (160-400); Red Blood Count 3.33 X10*6/uL (4.20-5.50); Red Cell Distribution Width 13.2 % (11.0-16.0); White Blood Count 5.6 X10*3/uL (4.8-10.8)
[2024-02-09 07:00] LABS: Anion Gap 9 (12-20); Blood Urea Nitrogen 28 mg/dL (9-16); Calcium 8.3 mg/dL (8.4-10.2); Carbon Dioxide 27 mmol/L (22-29); Chloride 106 mmol/L (96-108); Creatinine Clr Calc Pharmacy 52.8; Estimated Glomerular Filt Rate > 60; Glucose Fasting 92 mg/dL (60-99); Potassium 4.1 mmol/L (3.3-5.1); Sodium 138 mmol/L (135-145)
[2024-02-09 08:00] VITALS: BP 116/56; PULSE 95; RESP 18; TEMP 36.1; O2SAT 94
[2024-02-09] MEDS: Docusate Sodium 100 MG CAPSULE PO (08:36)
[2024-02-09 08:37] VITALS: BP 152/65
[2024-02-09] MEDS: amLODIPine Besylate 10 MG TABLET PO (08:37)
[2024-02-09] MEDS: Celecoxib 200 MG CAPSULE PO (08:37)
[2024-02-09] MEDS: Calcium Oyster Shell Elemental 500 MG TABLET PO (08:37)
[2024-02-09] MEDS: Dronedarone HCl 400 MG TABLET PO (08:37)
[2024-02-09] MEDS: 0.9 % Sodium Chloride Flush 3 ML SYRINGE IVFLUSH (08:38)
--- NOTE | 2024-02-09 09:45 | MHC.CM.PN ---
DC PLAN IS 12:30 TO [facility]IA [facility]. RN, PATIENT, AND UNIT AWARE
[2024-02-09 09:50] VITALS: BP 152/65
== END 2024-02-09 13:15 | disposition skilled nursing facility (03) | DRG 470 ==
LOC: HO.SSS 08:42 → HO.SSSA 08:43 → HO.S3 12:37
PROVIDERS: Nurse Practitioner; Orthopaedic Surgery; Admitting Provider Physician Assistant; PCP Internal Medicine; Visit Provider Physician Assistant
PROC: 0SRC0J9 Replacement of Right Knee Joint with Synthetic Substitute, Cemented, Open Approach (ICD-10-PCS; CPT 27447; principal; 2024-02-07 11:00)
DX: M17.11 Unilateral primary osteoarthritis, right knee (principal); G89.18 Other acute postprocedural pain; I48.0 Paroxysmal atrial fibrillation; I25.10 Atherosclerotic heart disease of native coronary artery without angina pectoris; I10 Essential (primary) hypertension; E78.5 Hyperlipidemia, unspecified; Z79.899 Other long term (current) drug therapy
CPT/HCPCS: 27447; 36415; 73560; 80048; 82565; 85025; 86850; 86900; 86901; 87640; 87641; 88305; 88311; 97110; 97116; 97161; 97530; C1713; C1776; J0131; J0665; J0690; J1100; J1170; J1650; J2250; J2405; J2704; J3010; J7120

== ENCOUNTER → 2024-02-07 08:39 | Outpatient (BNV) | payer OTHER, SELFPAY | PROVIDERS: Admitting Provider Physician Assistant; PCP Internal Medicine; Visit Provider Orthopaedic Surgery | DX: Z47.1 Aftercare following joint replacement surgery (principal); Z96.651 Presence of right artificial knee joint | CPT/HCPCS: 27447; 99024 ==

== ENCOUNTER → 2024-02-07 08:39 | Outpatient (BNV) | payer OTHER, SELFPAY | PROVIDERS: Admitting Provider Physician Assistant; PCP Internal Medicine; Visit Provider Physician Assistant | DX: I10 Essential (primary) hypertension (principal); Z96.651 Presence of right artificial knee joint; I40.0 Infective myocarditis; E78.5 Hyperlipidemia, unspecified | CPT/HCPCS: 99222; 99232 ==

== ENCOUNTER 2024-02-23 13:49 | Outpatient (AMB) | payer OTHER, SELFPAY ==
--- NOTE | 2024-02-23 14:15 | A.OFFVIS_ITS ---
Intake Visit Reasons: 2WK PO: R TKA w/NE 02/07/24 Intake Note: Vera is an 83 year old female who presents today for a post op appointment s/p R TKA w/NE 02/07/24. Patient reports she is doing well, states current pain level is 3-4 out of 10. She continues work with in home therapy. Allergies No Known Allergies [No Known Allergies*] Allergy (Verified 02/23/24 14:20) HPI HPI 2WK PO: R TKA w/NE 02/07/24: Details: 83-year-old female who presents in the office today 16 days status post right total knee arthroplasty, which was performed on 02/07/[address] Mac.? ? While in the office today, the patient reports she is doing well. He rates her pain as a 3-4/10. She is currently working with home therapy.? PFS Medical History Urinary incontinence Hx of squamous cell carcinoma of skin Hx of skin cancer, basal cell Arthritis Ambulates with cane A-fib Epidermal cyst of face Paroxysmal atrial fibrillation HTN (hypertension) Right bundle branch block (RBBB) on electrocardiogram (ECG) Surgical History Hx of colonoscopy Hx of vein stripping Hx of bilateral cataract extraction History of total knee replacement (~2014) History of tonsillectomy Family History Father Pancreatic cancer Mother Stroke CHF (congestive heart failure) Diabetes mellitus Brother Cardiovascular disease Social History Household Members: Other Household Members Other:: sister from [facility] Caregiver staying overnight: No Housing: Apartment Are you a primary career development consultant to a significant other at home: No Do you presently have visiting nurse or other home services: No 75 years or older and lives alone: No Alcohol intake: current Alcohol intake frequency: holidays/special occasions only Alcohol type: wine Patient Tobacco Use Status: Never used Tobacco e-Cigarette/Vaping Use: Never Used service: No Review of Systems Const All systems reviewed & are unremarkable except as noted in HPI and below Physical Exam Const General: cooperative, healthy appearing and no acute distress Resp Effort & Inspection: normal respiratory effort and able to speak in complete sentences Cardio Rate: regular rate Peripheral pulses: Peripheral pulses 2+ throughout GI Palpation (GI): Soft to palpation Skin Lesions: no lesions Rashes: no rashes Extrem Other: Right knee: Incision site is clean, dry, and intact. Fadi are intact. No surrounding erythema or drainage. No signs of infection. ROM is 0-90 degrees. NVI. Assessment & Plan Assessment & Plan (1) Status post total knee replacement, right: Onset Date: ~02/07/24 Comment: NE Code(s): Z96.651 - Presence of right artificial knee joint Category: Surgical Plan Ms. Rees is a 83-year-old female who presents in the office today 16 days status post right total knee arthroplasty, which was performed on 02/07/[address] Mac.? ? While in the office today, the patient reports she is doing well. He rates her pain as a 3-4/10. She is currently working with home therapy.? ? Fadi were removed and steri-stripes were applied. The patient will continue to work with physical therapy. Follow-up will be in four weeks with Dr. Mac, or sooner if needed. ? Patient Instructions: Scribed by Maryam Robert medical anthropologist, for Jennifer Lowe PA-C on 02/23/2024 at 2:42 pm, EST.? Coding Level of Care Code Global (13194) Diagnoses Status post total knee replacement, right Z96.651
== END 2024-02-23 14:33 | disposition home or self-care (01) ==
PROVIDERS: PCP Internal Medicine; Visit Provider Physician Assistant
DX: Z96.651 Presence of right artificial knee joint (principal)
CPT/HCPCS: 99024

== ENCOUNTER → 2024-02-23 13:49 | Outpatient (BNVA) | payer OTHER, SELFPAY | PROVIDERS: PCP Internal Medicine; Visit Provider Physician Assistant | DX: Z96.651 Presence of right artificial knee joint (principal) | CPT/HCPCS: 99212 ==

== ENCOUNTER 2024-03-22 14:06 | Outpatient (AMB) | payer OTHER, SELFPAY ==
--- NOTE | 2024-03-22 14:07 | A.OFFVIS_ITS ---
Intake Visit Reasons: 6WK PO: R TKA w/NE 02/07/24 Intake Note: Vera is a 83 year old who presents post operatively with her cane S/P Right TKA 02/07/24. Patient reports when she is sitting for longer than 10 minutes her knee begins to ache. She finds relief when she elevates her leg. She ices her knee and finds it helpful for the swelling and pain. She goes to [facility] twice a week and claims she has 3 more weeks to go. She has been taking the oxycodone for relief after her PT visits. She has started driving and says she feels okay, no pain when pressing the gas pedal or brake and she feels safe. She is leaving on a trip in 3 weeks and would like to know if this is okay and if she is able to go swimming in the ocean. Allergies No Known Allergies [No Known Allergies*] Allergy (Verified 03/22/24 14:08) HPI HPI 6WK PO: R TKA w/NE 02/07/24: Details: Vera is a 83 year old who presents post operatively with her cane S/P Right TKA 02/07/24. Patient reports when she is sitting for longer than 10 minutes her knee begins to ache. She finds relief when she elevates her leg. She ices her knee and finds it helpful for the swelling and pain. She goes to [facility] twice a week and claims she has 3 more weeks to go. She has been taking the oxycodone for relief after her PT visits. She has started driving and says she feels okay, no pain when pressing the gas pedal or brake and she feels safe. She is leaving on a trip in 3 weeks and would like to know if this is okay and if she is able to go swimming in the ocean. [facility] Medical History Urinary incontinence Hx of squamous cell carcinoma of skin Hx of skin cancer, basal cell Arthritis Ambulates with cane A-fib Epidermal cyst of face Paroxysmal atrial fibrillation HTN (hypertension) Right bundle branch block (RBBB) on electrocardiogram (ECG) Surgical History Hx of colonoscopy Hx of vein stripping Hx of bilateral cataract extraction History of total knee replacement (~2014) History of tonsillectomy Family History Father Pancreatic cancer Mother Stroke CHF (congestive heart failure) Diabetes mellitus Brother Cardiovascular disease Social History Household Members: Other Household Members Other:: sister from [facility] Caregiver staying overnight: No Housing: Apartment Are you a primary care center manager to a significant other at home: No Do you presently have visiting nurse or other home services: No 75 years or older and lives alone: No Alcohol intake: current Alcohol intake frequency: holidays/special occasions only Alcohol type: wine Patient Tobacco Use Status: Never used Tobacco e-Cigarette/Vaping Use: Never Used service: No Physical Exam Extrem Other: 0-110 inc c/d/i no gait antalgia Assessment & Plan Assessment & Plan (1) Status post total knee replacement, right: Onset Date: ~02/07/24 Comment: NE Code(s): Z96.651 - Presence of right artificial knee joint Category: Surgical Plan: Doing well F/u 6 weeks Cont ROM and strengthening Coding Level of Care Code Global (99844) Diagnoses Status post total knee replacement, right Z96.651
== END 2024-03-22 14:40 | disposition home or self-care (01) ==
PROVIDERS: PCP Internal Medicine; Visit Provider Orthopaedic Surgery
DX: Z96.651 Presence of right artificial knee joint (principal)
CPT/HCPCS: 99024

== ENCOUNTER → 2024-03-22 14:06 | Outpatient (BNVA) | payer OTHER, SELFPAY | PROVIDERS: PCP Internal Medicine; Visit Provider Orthopaedic Surgery | DX: Z96.651 Presence of right artificial knee joint (principal) | CPT/HCPCS: 99212 ==

== ENCOUNTER 2024-05-03 14:00 | Outpatient (AMB) | payer OTHER, SELFPAY ==
--- NOTE | 2024-05-03 14:02 | A.OFFVIS_ITS ---
Intake Visit Reasons: 6WK PO: R TKA w/NE 02/07/24-follow up Intake Note: Vera is an 83 year old female who presents today for a follow up of her right knee s/p Right TKA 02/07/24. Patient reports that thinks are improving very slowly, she is having pain when standing from a seat postition. She has pain on the lateral aspect of the right thigh. She is taking tylenol for her pain, which does help. She will need Rx for ABX Allergies No Known Allergies [No Known Allergies*] Allergy (Verified 03/22/24 14:08) HPI HPI 6WK PO: R TKA w/NE 02/07/24-follow up: Details: Doing well with intermittant pain. Still difficulty going up and down stairs. [facility] Medical History Urinary incontinence Hx of squamous cell carcinoma of skin Hx of skin cancer, basal cell Arthritis Ambulates with cane A-fib Epidermal cyst of face Paroxysmal atrial fibrillation HTN (hypertension) Right bundle branch block (RBBB) on electrocardiogram (ECG) Surgical History Hx of colonoscopy Hx of vein stripping Hx of bilateral cataract extraction History of total knee replacement (~2014) History of tonsillectomy Family History Father Pancreatic cancer Mother Stroke CHF (congestive heart failure) Diabetes mellitus Brother Cardiovascular disease Social History Household Members: Other Household Members Other:: sister from [facility] Housing: Apartment Are you a primary career development consultant to a significant other at home: No Do you presently have visiting nurse or other home services: No Alcohol intake: current Alcohol intake frequency: holidays/special occasions only Alcohol type: wine Patient Tobacco Use Status: Never used Tobacco e-Cigarette/Vaping Use: Never Used service: No Physical Exam Extrem Other: 0-120 inc c/d/i no gait antalgia Assessment & Plan Assessment & Plan (1) Status post total knee replacement, right: Onset Date: ~02/07/24 Comment: NE Code(s): Z96.651 - Presence of right artificial knee joint Category: Surgical Plan: Continue strengthening. Doing well. PT reordered. Orders: Orders PT Evaluation and Treatment Today Z96.651 - Presence of right artificial knee joint Coding Level of Care Code Global (24916) Diagnoses Status post total knee replacement, right Z96.651
== END 2024-05-03 14:25 | disposition home or self-care (01) ==
PROVIDERS: PCP Internal Medicine; Visit Provider Orthopaedic Surgery
DX: Z96.651 Presence of right artificial knee joint (principal)
CPT/HCPCS: 99024

== ENCOUNTER → 2024-05-03 14:00 | Outpatient (BNVA) | payer OTHER, SELFPAY | PROVIDERS: PCP Internal Medicine; Visit Provider Orthopaedic Surgery | DX: Z47.1 Aftercare following joint replacement surgery (principal); Z96.651 Presence of right artificial knee joint | CPT/HCPCS: 99212 ==

== ENCOUNTER 2024-05-21 09:22 | Outpatient (AMB) | payer OTHER, SELFPAY ==
--- NOTE | 2024-05-21 09:23 | MHC.OFFVIS ---
Vital Signs 05/21/24 09:26 Height 5 ft 1 in Weight 189 lb 9.561 oz BMI 35.8 BP 122/80 Blood Pressure Location Lt brachial Position Sitting Pulse 82 Intake Visit Reasons: 6 mth w/ ekg Intake Note: 6 month follow-up with ekg felt afib this morning feeling better [place] Actor Required: No Allergies No Known Allergies [No Known Allergies*] Allergy (Verified 03/22/24 14:08) Medication List - Last Reconciled 05/21/24 by Lee Barajas MD acetaminophen 650 mg (2 x 325 mg) PO Q6H PRN 30 days ascorbate calcium (vitamin C) 500 mg PO DAILY calcium carbonate 500 mg PO DAILY dabigatran etexilate (Pradaxa) 150 mg PO BID 90 days docusate sodium 200 mg PO BEDTIME docusate sodium 100 mg PO BID 30 days dronedarone 400 mg PO BID lisinopril 40 mg PO BEDTIME multivitamin 1 tab PO DAILY pravastatin 40 mg PO BEDTIME walker Folding Front wheeled walker HPI Comments Details: Sr. Gamez comes for follow-up. He said this morning while at breakfast she had episode of atrial fibrillation which she felt as irregular heartbeat not fast heart rate. She felt off. Symptoms lasted for about 5-10 minutes. Then subsided. This is been an episode after long long time. She denies any associated shortness of breath, chest pain. No lightheadedness, syncope. No orthopnea, PND, leg edema. [facility] Medical History Osteoarthritis of right knee Urinary incontinence Hx of squamous cell carcinoma of skin Hx of skin cancer, basal cell Arthritis Ambulates with cane A-fib Epidermal cyst of face Paroxysmal atrial fibrillation HTN (hypertension) Right bundle branch block (RBBB) on electrocardiogram (ECG) Surgical History Hx of colonoscopy Hx of vein stripping Hx of bilateral cataract extraction History of total knee replacement (~2014) History of tonsillectomy Family History Father Pancreatic cancer Mother Stroke CHF (congestive heart failure) Diabetes mellitus Brother Cardiovascular disease Social History Household Members: Other Household Members Other:: sister from [employer] Caregiver staying overnight: No Housing: Apartment Are you a primary overnight caregiver to a significant other at home: No Do you presently have visiting nurse or other home services: No 75 years or older and lives alone: No Alcohol intake: current Alcohol intake frequency: holidays/special occasions only Alcohol type: wine Patient Tobacco Use Status: Never used Tobacco e-Cigarette/Vaping Use: Never Used service: No Review of Systems Const Denies chills, Denies fatigue, Denies fever(s), Denies frequent falls, Denies weakness, Denies weight gain and Denies weight loss ENT Denies dizziness Card Denies chest pain, Denies leg edema, Denies lightheadedness, Denies palpitations, Denies dyspnea, Denies dyspnea on exertion, Denies orthopnea and Denies other (loss of consciousness) Resp Denies cough, Denies dyspnea and Denies dyspnea on exertion GI Denies hematochezia and Denies change in stool character Musc Denies abnormal gait, Denies muscle weakness, Denies numbness, Denies radiating pain into limb and Denies tingling Neuro Denies abnormal gait, Denies dizziness, Denies frequent falls, Denies numbness, Denies tingling and Denies weakness Endo Denies fatigue and Denies palpitations Physical Exam Vital Signs: Last Vital Signs Pulse 82 05/21/24 09:26 BP 122/80 05/21/24 09:26 BMI result Body Mass Index 35.8 Const General: comfortable, alert and awake Nutritional Appearance: obese Orientation/consciousness: oriented to person and patient oriented x3 Limitations: no limitations HEENT Head: Yes normocephalic and Yes atraumatic Neck Neck: Yes trachea midline, Yes supple and Yes no JVD Chest Chest palpation & inspection: normal inspection of the chest Resp Effort & Inspection: normal respiratory effort Auscultation: clear to auscultation bilaterally Cardio Jugular venous distension: no JVD Palpation: normal PMI Rate: regular rate Rhythm: regular rhythm Heart sounds: S1 normal heart sound present and S2 normal heart sound present Skin General skin exam: ecchymosis Neuro General: oriented to person, patient oriented x3 and no focal motor deficits Extrem General: Yes no clubbing, cyanosis or edema Psych Appearance: grossly normal Office Procedures EKG Details: EKG shows normal sinus rhythm with PACs with right bundle-branch block and left anterior fascicular block [id number], Complete Assessment & Plan Assessment & Plan (1) Paroxysmal atrial fibrillation: Code(s): I48.0 - Paroxysmal atrial fibrillation Category: Medical Plan: Paroxysmal atrial fibrillation with a breakthrough episode today which lasted for short period time. She was symptomatic with it but no significant debilitating symptoms. This is an episode after long long time. Advised to monitor and log her symptoms. Advised to seek any correlation to any significant triggers. Otherwise for now will continue Multaq therapy which has served very well with least amount of side effects. We discussed about other treatment options including sotalol/Tikosyn or amiodarone therapy. She understands agrees. Continue dabigatran for oral anticoagulation. Semi annual renal function test should be pursued. Continue EKGs every 3 months. (2) Bifascicular block: Code(s): I45.2 - Bifascicular block Category: Medical Plan: Bifascicular block on EKG unchanged. No symptoms related to it. No interventions required. Advised to report any symptoms such as lightheadedness or syncope. (3) HTN (hypertension): Code(s): I10 - Essential (primary) hypertension Category: Medical Plan: Hypertension which is currently well optimized importance of good blood pressure control was discussed. Continue current antihypertensive therapy with lisinopril. Target goal blood pressure less than 130/84. Low-salt diet was discussed. Stress mitigation strategies was discussed advised to maintain activity level as tolerated. Follow up in the clinic in 3 months for EKG in 6 months with me. Thank you for allowing me to partake in his care Orders: Orders CA echo transthoracic complete 1 Month I48.0 - Paroxysmal atrial fibrillation Coding Level of Care Code Est Pt Level 4 (97229) Diagnoses Paroxysmal atrial fibrillation I48.0 Bifascicular block I45.2 HTN (hypertension) I10 CPT Codes EKG - CPT: [id number], Complete ([id number])
[2024-05-21 09:26] VITALS: BP 122/80; PULSE 82; BMI 35.8
== END 2024-05-21 09:48 | disposition home or self-care (01) ==
PROVIDERS: PCP Internal Medicine; Visit Provider Internal Medicine Cardiovascular Disease
DX: I48.0 Paroxysmal atrial fibrillation (principal); I45.2 Bifascicular block; I10 Essential (primary) hypertension
CPT/HCPCS: 93010; 99214

== ENCOUNTER → 2024-05-21 09:22 | Outpatient (BNVA) | payer OTHER, SELFPAY | PROVIDERS: PCP Internal Medicine; Visit Provider Internal Medicine Cardiovascular Disease | DX: I48.0 Paroxysmal atrial fibrillation (principal); I45.2 Bifascicular block; I10 Essential (primary) hypertension | CPT/HCPCS: 93005; 99212 ==

== ENCOUNTER 2024-05-30 15:00 | Outpatient (RCR) | payer OTHER, SELFPAY ==
--- NOTE | 2024-02-29 17:22 | MHC.PT.EP ---
[facility] [place] Office [place] Office [place] Office [address] Galilea Coughlin [address] [phone] F: [phone] F: [phone] F: [phone] F: [phone] Physical Therapy Plan of Care Date of Evaluation: 02/29/24 Date of Surgery: 02/07/24 Diagnosis: RTKA Assessment: Pt. is an 83 y/o female referred to PT s/p RTKA on 02/07/24. Physical impairments include decreased R knee ROM, decreased R LE strength, and increased swelling on the R knee. Functional limitations include sitting and standing for prolonged periods of time, walking long distances, and lifting R leg up to get into bed. She was able to verbally states the exercises that she has been doing with her home therapist and was open to learning new ones to add to her HEP today (Added quad sets, HL hip adduction, standing hip abduction, standing marches, standing hip extensions, and heel raises). She needed reminders during treatment to slow down while performing exercises. [facility] a wheelchair but stated she normally doesn't use one, but she was unable to walk the distance from the parking lot to the clinic w/o it, otherwise she is using a STD cane. She demonstrated she was able to ascend and descend stairs safely. She currently has 12 steri-strips on. Pt. asked if she could remove steri-strips herself but was educated that she should leave them on and let them fall off on their own. Instructed on observing incision site and noting any discoloration and leakage for signs of infection or DVT. Frequency and Duration: The patient will be seen 2X/wk for 6 wks Short Term Goals: -Pt. will increase R knee extension to 0 (IR -8) -Pt. will increase R knee flexion to 120 (IR 85) -Pt. will demonstrate SLR w/o quad lag Clinical Biostatistics Director Goals: -Pt. will score no less than 50/80 on LEFS (IR: 11) -Pt. will be able to ambulate 300 ft w/ STD cane -Pt. will be independent w/ HEP Treatment Plan: Modalities to reduce pain, spasms and effusion. Manual therapy to restore motion and function. Therapeutic exercise to improve strength and flexibility. Neuromuscular re-education for posture and balance. Therapeutic activities to return to functional activities of daily living. Electronically signed by: Camilo Waters PT, DPT Please sign and return to therapist. Thank you for your referral.
--- NOTE | 2024-05-30 17:10 | MHC.PT.DC ---
[facility] [place] Office [place] Office [place] Office [address] Galilea Coughlin [address] [facility] [phone] F: [phone] F: [phone] F: [phone] F: [phone] Physical Therapy Discharge Report Diagnosis: RTKA Date of Surgery: 02/07/24 Date of Evaluation: 02/29/24 Date of Discharge: 05/30/24 Treatments to Date: 21 Cancellations to Date: No Shows to Date: Discharge Status: Achieved Goals Improved Function Independent with HEP Discharge Summary: Vera presents with increased R knee ROM and strength, normalized gait pattern without AD, reduced swelling. 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 Today we discuss HEP going forward to continue to make progress in the coming months. She agrees to discharge this session. Electronically signed by: Camilo Waters, PT, DPT Please sign and return to therapist. Thank you for your referral.
== END 2024-05-30 17:11 | disposition home or self-care (01) ==
LOC: HO.PT 15:00
PROVIDERS: PCP Internal Medicine; Visit Provider Physician Assistant
DX: Z96.651 Presence of right artificial knee joint (principal)
CPT/HCPCS: 97110; 97112; 97140; 97162; 97530

== ENCOUNTER → 2024-06-20 12:54 | Outpatient (REF) | payer OTHER, SELFPAY ==
--- NOTE | 2024-06-20 12:58 | CA_ITS ---
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 The calculated ejection fraction is 65% by biplane method. - The left atrium is moderately dilated. - No obvious valvular pathology seen on this study. Findings Left Ventricle Normal left ventricular cavity size. The left ventricular systolic function is normal. The calculated ejection fraction is 65% by biplane method. There is no evidence of regional wall motion abnormalities. Evidence suggests grade I (mild) diastolic dysfunction. There is severe septal asymmetric hypertrophy. LV peak GLS -17.7%. Right Ventricle Normal right ventricular cavity size and systolic function. Atria The left atrium is moderately dilated. The right atrium is normal in size. Aortic Valve There is a normal trileaflet aortic valve. There is no aortic valve stenosis. There is no aortic valve regurgitation. Mitral Valve There is mild mitral annular calcification. There is no mitral valve regurgitation. There is no mitral valve stenosis. Pulmonic Valve There is trace to mild pulmonic valve regurgitation. Tricuspid Valve There is trace tricuspid valve regurgitation. There is no evidence of pulmonary hypertension. Great Vessels The asc aorta is normal in size. Venous The inferior vena cava is mildly dilated and collapses greater than 50% with inspiration. Pericardium/Pleural There is no evidence of pericardial effusion. Prior Study Comparison No significant change compared to prior study dated: 06/10/2023. Recommendations, Care & Conclusions No obvious valvular pathology seen on this study. Measurements 2D Linear Measurements IVSd: 1.60 0.6-0.9/0.6-1.0 cm LVIDd: 4.29 3.9-5.3/4.2-5.9 cm LVIDd Index: 2.37 2.4-3.2/2.2-3.1 cm/m2 LVIDs: 2.86 2.0-3.6 cm LVPWd: 0.86 0.7-1.1 cm LA Diam: 4.20 2.7-3.8/3.0-4.0 cm LAIDs Index: 2.32 1.5-2.3 cm/m2 LV Mass: 237.74 67-162/88-224 g LV Mass Index: 131.35 43-95/49-115 g/m2 LVOT Diam: 2.00 3.0+(-)1.3 cm 2D Systolic Function EF 4C: 64.90 >55% EF 2C: 64.10 >55% EF BiP: 65.10 >55% Mitral Valve MV Pk E: 0.74 MV PK A: 0.87 MV Decel Time: 153.00 E/A: 0.90 E'Lateral: 5.44 E'Medial: 4.46 E/E' Med: 16.60 E/E' Lat: 13.60 PHT: 45.00 MVA PHT: 4.89 Decel [place]: 4.84 Aortic Valve AoV Pk Christopher: 1.39 AoV Mn Christopehr: 0.99 AoV VTI: 0.32 AoV Pk Grad: 8.00 Aov Mn Grad: 4.00 PARESH Cont.VTI: 1.87 LVOT LVOT Pk Christopher: 0.84 LVOT Mn Christopher: 0.59 LVOT VTI: 0.19 LVOT Pk Grad: 3.00 LVOT Mn Grad: 2.00 LVOT Diam: 2.00 LVOT Area: 3.14 Diastolic Function MV Pk E: 0.74 MV Pk A: 0.87 E/A: 0.90 E'Medial: 4.46 E/E' Med: 16.60 E' Laterial: 5.44 E/E' Lat: 13.60 Right Ventricle TAPSE (mm): 26.00 TVS' Christopher: 12.90 Tricuspid Valve TR Pk Christopher: 2.46 TR Pk Grad: 24.00 RA Press: 8.00 RVSP: 32.00 Great Vessels Aorta Sinus of Valsalva: 3.26 2.0-3.5 cm Ao Asc: 3.60 2.1-3.4 cm Updated in Other Vendor System with Status of Final Yovani Diaz MD electronically signed on 06/20/2024 4:00:33 PM with status of Final
== END ==
LOC: HO.CARD 12:54
PROVIDERS: PCP Internal Medicine; Visit Provider Internal Medicine
DX: I48.0 Paroxysmal atrial fibrillation (principal)
CPT/HCPCS: 93306; 93356

== ENCOUNTER → 2024-06-20 12:58 | Outpatient (BNV) | payer OTHER, SELFPAY | PROVIDERS: PCP Internal Medicine; Visit Provider Internal Medicine | DX: I42.2 Other hypertrophic cardiomyopathy (principal); I37.1 Nonrheumatic pulmonary valve insufficiency; I34.81 Nonrheumatic mitral (valve) annulus calcification | CPT/HCPCS: 93306; 93356 ==

== ENCOUNTER 2024-07-30 13:19 | Outpatient (AMB) | payer OTHER, SELFPAY ==
--- NOTE | 2024-07-30 13:21 | MHC.OFFVIS ---
Intake Visit Reasons: OV - R TKA w/NE 02/07/24 Intake Note: Vera is an 83 year old female who presents today for a follow up of her right knee s/p Right TKA 02/07/24. She was given a new order for PT at her last visit in April. Patient reports that she is doing well, she has some pain/difficulty with gait initiation . Allergies No Known Allergies [No Known Allergies*] Allergy (Verified 07/30/24 13:25) HPI HPI OV - R TKA w/NE 02/07/24: Details: Vera is an 83 year old female who presents today for a follow up of her right knee s/p Right TKA 02/07/24. She was given a new order for PT at her last visit in April. Patient reports that she is doing well, she has some pain/difficulty with gait initiation . [facility] Medical History Osteoarthritis of right knee Urinary incontinence Hx of squamous cell carcinoma of skin Hx of skin cancer, basal cell Arthritis Ambulates with cane A-fib Epidermal cyst of face Paroxysmal atrial fibrillation HTN (hypertension) Right bundle branch block (RBBB) on electrocardiogram (ECG) Surgical History Hx of colonoscopy Hx of vein stripping Hx of bilateral cataract extraction History of total knee replacement (~2014) History of tonsillectomy Family History Father Pancreatic cancer Mother Stroke CHF (congestive heart failure) Diabetes mellitus Brother Cardiovascular disease Social History Household Members: Other Household Members Other:: sister from [facility] Caregiver staying overnight: No Housing: Apartment Are you a primary assisted living care manager to a significant other at home: No Do you presently have visiting nurse or other home services: No 75 years or older and lives alone: No Alcohol intake: current Alcohol intake frequency: holidays/special occasions only Alcohol type: wine Patient Tobacco Use Status: Never used Tobacco e-Cigarette/Vaping Use: Never Used service: No Physical Exam Extrem Other: 0-125 Incision clean dry and intact Normal gait Assessment & Plan Assessment & Plan (1) Status post total knee replacement, right: Onset Date: ~02/07/24 Comment: NE Code(s): Z96.651 - Presence of right artificial knee joint Category: Surgical Plan: 6 months status post right knee replacement. She has improved with her only complaint is occasional pain when standing from a seated position. She feels her right knee took a little longer than her left knee but overall she has no pain and she is walking comfortably and has returned to all activity. May follow up p.r.n.. Coding Level of Care Code Est Pt Level 3 (95906) Diagnoses Status post total knee replacement, right Z96.651
== END 2024-07-30 15:13 | disposition home or self-care (01) ==
PROVIDERS: PCP Internal Medicine; Visit Provider Orthopaedic Surgery
DX: Z47.1 Aftercare following joint replacement surgery (principal); Z96.651 Presence of right artificial knee joint
CPT/HCPCS: 99212

== ENCOUNTER → 2024-07-30 13:19 | Outpatient (BNVA) | payer OTHER, SELFPAY | PROVIDERS: PCP Internal Medicine; Visit Provider Orthopaedic Surgery | DX: Z47.1 Aftercare following joint replacement surgery (principal); M17.11 Unilateral primary osteoarthritis, right knee; Z96.651 Presence of right artificial knee joint | CPT/HCPCS: 99212 ==

== ENCOUNTER → 2024-08-14 09:21 | Outpatient (BNVA) | payer OTHER, SELFPAY | PROVIDERS: PCP Internal Medicine; Visit Provider Internal Medicine Cardiovascular Disease ==

== ENCOUNTER 2024-09-21 11:47 | Outpatient (REF) | payer OTHER, SELFPAY | END 2024-09-21 11:48 | disposition home or self-care (01) | LOC: HO.MAMMO 11:47 | PROVIDERS: PCP Internal Medicine; Visit Provider Internal Medicine | DX: Z12.31 Encounter for screening mammogram for malignant neoplasm of breast (principal) | CPT/HCPCS: 77063; 77067 ==

== ENCOUNTER → 2024-09-21 12:00 | Outpatient (BNV) | payer OTHER, SELFPAY | PROVIDERS: PCP Internal Medicine; Visit Provider Internal Medicine | DX: Z12.31 Encounter for screening mammogram for malignant neoplasm of breast (principal) | CPT/HCPCS: 77063; 77067 ==

== ENCOUNTER 2024-10-05 08:08 | Outpatient (REF) | payer OTHER, SELFPAY ==
[2024-10-05 08:18] LABS: MANUAL DIFF FLAG NO
[2024-10-05 08:23] LABS: Basophils Percent Auto 0.3 % (0-2); Eosinophils Absolute Auto 0.1 X10*3/uL (0.0-0.4); Eosinophils Percent Auto 1.8 % (0-4); Hematocrit 36.5 % (37.0-47.0); Hemoglobin 11.6 g/dl (12.0-16.0); Imm Gran Abs Auto 0.01 X10*3/uL (0.00-0.03); Imm Gran Pct Auto 0.3 % (0.0-0.4); Lymphocytes Percent Auto 31.7 % (20-40); Mean Corpuscular HGB Conc 31.8 g/dl (31.0-35.0); Mean Corpuscular Hemoglobin 30.8 pg (27.0-33.0); Mean Corpuscular Volume 96.8 fL (80.0-98.0); Mean Platelet Volume 9.4 fL (9.4-12.3); Monocytes Absolute Auto 0.3 X10*3/uL (0.1-1.2); Monocytes Percent Auto 9.1 % (2-11); Neutrophils Absolute Auto 1.9 x10*3/uL (2.0-8.3); Neutrophils Percent Auto 56.8 % (45-73); Platelet Count 223 X10*3/uL (160-400); Red Blood Count 3.77 X10*6/uL (4.20-5.50); Red Cell Distribution Width 12.8 % (11.0-16.0); White Blood Count 3.3 X10*3/uL (4.8-10.8)
[2024-10-05 09:03] LABS: Alanine Aminotransferase 14 U/L (0-31); Albumin Level 3.6 g/dL (3.5-5.0); Alkaline Phosphatase 48 U/L (39-117); Anion Gap 9 (12-20); Aspartate Amino Transferase 25 U/L (5-31); Bilirubin Total 0.5 mg/dL (0.0-1.0); Blood Urea Nitrogen 22 mg/dL (9-16); Calcium 9.2 mg/dL (8.4-10.2); Carbon Dioxide 29 mmol/L (22-29); Chloride 106 mmol/L (96-108); Cholesterol 131 mg/dL (<200); Estimated Glomerular Filt Rate > 60; Glucose Fasting 94 mg/dL (60-99); HDL Cholesterol 45 mg/dL (>40); LDL Cholesterol Calculated 64 mg/dL (<100); Potassium 3.8 mmol/L (3.3-5.1); Sodium 140 mmol/L (135-145); Total Protein 7.2 g/dL (6.5-8.0); Triglycerides 110 mg/dL (<150)
== END 2024-10-05 08:09 | disposition home or self-care (01) ==
LOC: HO.LAB 08:08
PROVIDERS: PCP Internal Medicine; Visit Provider Internal Medicine
DX: I48.91 Unspecified atrial fibrillation (principal); I10 Essential (primary) hypertension; E78.00 Pure hypercholesterolemia, unspecified
CPT/HCPCS: 36415; 80053; 80061; 85025

== ENCOUNTER 2024-11-12 10:09 | Outpatient (AMB) | payer OTHER, SELFPAY ==
--- NOTE | 2024-11-12 10:17 | A.OFFVIS_ITS ---
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 From cardiac perspective she has been overall doing well. She was also been remain active since her knee surgery. She was no lightheadedness, syncope. She had 1 episode of atrial fibrillation that lasted for few minutes and then subsided. This was about 2 months ago. No other episodes. Overall doing well. Blood pressures been well controlled. No bleeding issues or neurologic events. No exertional chest pain or shortness of breath. No orthopnea, PND, leg edema. Her main complaint currently is bilateral upper arm discomfort and shoulder discomfort all the time. [facility] Medical History Osteoarthritis of right knee Urinary incontinence Hx of squamous cell carcinoma of skin Hx of skin cancer, basal cell Arthritis Ambulates with cane A-fib Epidermal cyst of face Paroxysmal atrial fibrillation HTN (hypertension) Right bundle branch block (RBBB) on electrocardiogram (ECG) Surgical History Hx of colonoscopy Hx of vein stripping Hx of bilateral cataract extraction History of total knee replacement (~2014) History of tonsillectomy Family History Father Pancreatic cancer Mother Stroke CHF (congestive heart failure) Diabetes mellitus Brother Cardiovascular disease Social History Household Members: Other Household Members Other:: sister from [facility] [employer] Caregiver staying overnight: No Housing: Apartment Are you a primary animal caretaker to a significant other at home: No Do you presently have visiting nurse or other home services: No 75 years or older and lives alone: No Alcohol intake: current Alcohol intake frequency: holidays/special occasions only Alcohol type: wine Patient Tobacco Use Status: Never used Tobacco e-Cigarette/Vaping Use: Never Used service: No Review of Systems Const Denies chills, Denies fatigue, Denies fever(s), Denies frequent falls, Denies weakness, Denies weight gain and Denies weight loss ENT Denies dizziness Card Denies chest pain, Denies leg edema, Denies lightheadedness, Denies palpitations, Denies dyspnea, Denies dyspnea on exertion, Denies orthopnea and Denies other (loss of consciousness) Resp Denies cough, Denies dyspnea and Denies dyspnea on exertion GI Denies hematochezia and Denies change in stool character Musc Denies abnormal gait, Denies muscle weakness, Denies numbness, Denies radiating pain into limb and Denies tingling Neuro Denies abnormal gait, Denies dizziness, Denies frequent falls, Denies numbness, Denies tingling and Denies weakness Endo Denies fatigue and Denies palpitations Physical Exam Vital Signs: Last Vital Signs Pulse 80 11/12/24 10:18 BP 128/80 11/12/24 10:18 BMI result Body Mass Index 37.1 Const General: comfortable, alert and awake Nutritional Appearance: obese Orientation/consciousness: oriented to person and patient oriented x3 Limitations: no limitations HEENT Head: Yes normocephalic and Yes atraumatic Neck Neck: Yes trachea midline, Yes supple and Yes no JVD Chest Chest palpation & inspection: normal inspection of the chest Resp Effort & Inspection: normal respiratory effort Auscultation: clear to auscultation bilaterally Cardio Jugular venous distension: no JVD Palpation: normal PMI Rate: regular rate Rhythm: regular rhythm Heart sounds: S1 normal heart sound present and S2 normal heart sound present Skin General skin exam: ecchymosis Neuro General: oriented to person, patient oriented x3 and no focal motor deficits Extrem General: Yes no clubbing, cyanosis or edema Psych Appearance: grossly normal Office Procedures EKG Details: EKG shows normal sinus rhythm with right bundle-branch and left anterior fascicular block, consistent with bifascicular block, unchanged from before. [id number], Complete Assessment & Plan Assessment & Plan (1) Paroxysmal atrial fibrillation: Code(s): I48.0 - Paroxysmal atrial fibrillation Category: Medical Plan: Highly symptomatic paroxysmal atrial fibrillation with minimal burden at this point time. Continue Multaq therapy which has done very well and continue rhythm control approach. Quarterly EKGs required. Currently on full oral anticoagulation with Pradaxa which she was tolerated well for many years. Continue the same. Semi annual renal function test should be pursued. Continue risk factor modification. Avoidance of stimulants was discussed. (2) Bifascicular block: Code(s): I45.2 - Bifascicular block Category: Medical Plan: Bifascicular block which is unchanged. She has no symptoms related to it. No interventions required per se for the same. Follow-up EKG as above. (3) HTN (hypertension): Code(s): I10 - Essential (primary) hypertension Category: Medical Plan: Hypertension which is currently well optimized advised to monitor blood pressure at home maintain a. Pressure less than 130/84. Low-salt diet was discussed. Importance of good medical therapy was discussed. She understands and agrees. Will follow up in the clinic in 3 months for EKG in 6 months with me. Thank you for allowing me to partake in her care Coding Level of Care Code Est Pt Level 4 (11902) Complex EM visit Add On G2211 Diagnoses Paroxysmal atrial fibrillation I48.0 Bifascicular block I45.2 HTN (hypertension) I10 CPT Codes EKG - CPT: [id number], Complete ([id number])
[2024-11-12 10:18] VITALS: BP 128/80; PULSE 80; BMI 37.1
== END 2024-11-12 10:43 | disposition home or self-care (01) ==
LOC: HO.HCS 10:10
PROVIDERS: PCP Internal Medicine; Visit Provider Internal Medicine Cardiovascular Disease
DX: I48.0 Paroxysmal atrial fibrillation (principal); I45.2 Bifascicular block; I10 Essential (primary) hypertension
CPT/HCPCS: 93010; 99214; G2211

== ENCOUNTER → 2024-11-12 10:09 | Outpatient (BNVA) | payer OTHER, SELFPAY | PROVIDERS: PCP Internal Medicine; Visit Provider Internal Medicine Cardiovascular Disease | DX: I48.0 Paroxysmal atrial fibrillation (principal); I45.2 Bifascicular block; I10 Essential (primary) hypertension; R94.31 Abnormal electrocardiogram [ECG] [EKG] | CPT/HCPCS: 93005; 99212 ==

== ENCOUNTER 2024-11-19 12:51 | Outpatient (REF) | payer OTHER, SELFPAY ==
[2024-11-19 15:05] LABS: C Reactive Protein 1.54 mg/dL (< or = 0.50)
== END 2024-11-19 12:52 | disposition home or self-care (01) ==
LOC: HO.LAB 12:51
PROVIDERS: PCP Internal Medicine; Visit Provider Internal Medicine
DX: M35.3 Polymyalgia rheumatica (principal); I48.0 Paroxysmal atrial fibrillation; I10 Essential (primary) hypertension; Z79.01 Long term (current) use of anticoagulants
CPT/HCPCS: 36415; 86140; 96127; 99202

== ENCOUNTER 2024-11-19 12:51 | Outpatient (AMB) | payer OTHER, SELFPAY ==
[2024-11-19 12:59] VITALS: BP 132/88; PULSE 88; RESP 16; TEMP 36.6; O2SAT 98; BMI 37.0
--- NOTE | 2024-11-19 12:59 | A.OFFPC_ITS ---
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 Required: No Accompanied by: Self / Same As Patient Allergies No Known Allergies [No Known Allergies*] Allergy (Verified 11/19/24 13:35) Medication List - Last Reconciled 11/19/24 by German Blair MD acetaminophen 650 mg (2 x 325 mg) PO Q6H PRN 30 days ascorbate calcium (vitamin C) 500 mg PO DAILY calcium carbonate 500 mg PO DAILY dabigatran etexilate (Pradaxa) 150 mg PO BID 90 days docusate sodium 200 mg PO BEDTIME dronedarone 400 mg PO BID lisinopril 40 mg PO BEDTIME multivitamin 1 tab PO DAILY pravastatin 40 mg PO DAILY walker Folding Front wheeled walker Tobacco use date assessed: 11/19/24 Fall risk assessment: No Falls in past year Last assessed Fall Risk: 11/19/24 Dental Screening Dental Screen Date: 11/19/24 Did you have a dental visit in the last 12 months?: Yes Did you have a dental problem in the last 6 months where you did not have access to dental care?: No HPI Routine HPI Details 84-year-old female presents to the offic e to discuss her medical condition. For the past few months, patient is complaining of bilateral shoulder pain and upper thigh pain. No history of fall or injury. The pain is constant, in the bilateral deltoid area and in the hips. She is unable to get off the chair without using the handles. No fall or injury. Patient had blood work done. She was referred to a chiropractor with minimal relief. She has also completing 2 months of physical therapy with minimal relief. Able to function, unable to lift her arms over the shoulder level. [facility] Medical History Osteoarthritis of right knee Urinary incontinence Hx of squamous cell carcinoma of skin Hx of skin cancer, basal cell Arthritis Ambulates with cane A-fib Epidermal cyst of face Paroxysmal atrial fibrillation HTN (hypertension) Right bundle branch block (RBBB) on electrocardiogram (ECG) Surgical History Hx of colonoscopy Hx of vein stripping Hx of bilateral cataract extraction History of total knee replacement (~2014) History of tonsillectomy Family History Father Pancreatic cancer Mother Stroke CHF (congestive heart failure) Diabetes mellitus Brother Cardiovascular disease Social History Household Members: Other Household Members Other:: sister from [facility] Caregiver staying overnight: No Housing: Apartment Are you a primary direct care specialist to a significant other at home: No Do you presently have visiting nurse or other home services: No 75 years or older and lives alone: No Alcohol intake: current Alcohol intake frequency: holidays/special occasions only Alcohol type: wine Patient Tobacco Use Status: Never used Tobacco e-Cigarette/Vaping Use: Never Used service: No Current occupational status: retired Cognitive needs: No Hearing needs: No Vision needs: Yes (reading glasses) Questionnaire PHQ-9 Over the last 2 weeks, how often have you been bothered by any of the following problems? 1. Little interest or pleasure in doing things: not at all 2. Feeling down, depressed, or hopeless: not at all 3. Trouble falling or staying asleep, or sleeping too much: not at all 4. Feeling tired or having little energy: not at all 5. Poor appetite or overeating: not at all 6. Feeling bad about yourself - or that you are a failure or have let yourself or your family down: not at all 7. Trouble concentrating on things, such as reading the newspaper or watching television: not at all 8. Moving or speaking so slowly that other people could have noticed. Or the opposite - being so fidgety or restless that you have been moving around a lot more than usual: not at all 9. Thoughts that you would be better off or of hurting yourself in some way: not at all Total score: 0 Source: Developed by Drs. Gilbert Joel, Kelsey Merida, Nikolai Anders and colleagues, with an educational nestor from [employer]. Thrive Questionnaire Date Thrive assessed: 02/08/24 I am a: Patient Within the past 12 months, did the food you bought not last and you didn't have the money to get more?: Never true Within the past 12 months, did you worry whether your food would run out before you got money to buy more?: Never true Do you have trouble paying for medicines?: No Do you have trouble getting transportation to medical appointments?: No Do you have trouble paying your heating and electricity bill?: No Do you have trouble taking care of your child, family member or friend?: No Do you have trouble with day-to-day activities such as bathing, preparing meals, shopping, managing finances, etc.?: No Are you currently unemployed and looking for a job?: No Are you interested in more education?: No THRIVE Score: 0 AUDIT C Alcohol Use Questionnaire (AUDIT-C) 1. How often do you have a drink containing alcohol?: Monthly or less 2. How many drinks containing alcohol do you have on a typical day when you are drinking?: 1 or 2 3. How often do you have six or more drinks on one occasion?: Never Total Score: 1 BLANCO-7 AMB Questionnaire BLANCO-7 Date BLANCO - 7 assessed: 11/19/24 Feeling nervous, anxious, or on edge: 0 = Not at all Not being able to stop or control worryin = Not at all Worrying too much about different things: 0 = Not at all Trouble relaxin = Not at all Being so restless that it is hard to sit still: 0 = Not at all Becoming easily annoyed or irritable: 0 = Not at all Feeling afraid as if something awful might happen: 0 = Not at all Total BLANCO-7 score (0-4 normal; 5-9 mild; 10-14 moderate; 15-21 severe): 0 Source: Developed by Drs. Gilbert Joel, Kelsey Merida, Nikolai Anders and colleagues, with an educational nestor from [employer]. Physical exam (Primary Care) Vital Signs: Last Vital Signs Temp 97.8 F 11/19/24 12:59 Pulse 88 11/19/24 12:59 Resp 16 11/19/24 12:59 BP 132/88 11/19/24 12:59 Pulse Ox 98 11/19/24 12:59 Oxygen Delivery Method Room Air 11/19/24 12:59 BMI result Body Mass Index 37.0 Tobacco/Smoking Status: Tobacco use Status Tobacco use date assessed 11/19/24 11/19/24 13:03 Patient Tobacco Use Status Never used Tobacco 11/19/24 13:12 e-Cigarette/Vaping Use Never Used 11/19/24 13:03 PHQ-9: PHQ-9 Score PHQ-9: Total score 0 11/19/24 13:03 Thrive Assessment: Date of Thrive Assessment Date Thrive assessed 02/08/24 11/19/24 13:03 Const General: cooperative and healthy appearing Nutritional Appearance: well nourished Orientation/consciousness: patient oriented x3 Limitations: no limitations HENMT Head: Yes normal to inspection Eyes General: appearance normal, both eyes and all related structures Neck Neck: Yes normal visual inspection Chest Chest palpation & inspection: normal palpation of entire chest wall Resp Effort & Inspection: normal respiratory effort Neuro General: patient oriented x3 Coding Level of Care Code New Pt Level 4 (88559) Complex EM visit Add On G2211 Diagnoses Polymyalgia rheumatica M35.3 Assessment & Plan Assessment & Plan (1) Polymyalgia rheumatica: Code(s): M35.3 - Polymyalgia rheumatica Plan: From her history, clinically patient appears to have polymyalgia rheumatica. Patient is on anticoagulation for her heart condition. Use of NSAIDs or prednisone will increase the risk of bleeding. Blood work reviewed. Documented anemia present. ESR added to the regimen. Should ESR be elevated, PMR is very likely. Prednisone would be started and a rheumatology appointment obtained. Orders: Orders C Reactive Protein Today M35.3 - Polymyalgia rheumatica Referrals Rheumatology Referral M35.3 - Polymyalgia rheumatica
== END 2024-11-19 13:32 | disposition home or self-care (01) ==
LOC: HO.HMCHD 12:51
PROVIDERS: PCP Internal Medicine; Visit Provider Internal Medicine
DX: M35.3 Polymyalgia rheumatica (principal)

== ENCOUNTER 2024-11-23 14:47 | Outpatient (RCR) | payer OTHER, SELFPAY ==
--- NOTE | 2024-09-28 15:40 | MHC.PT.EP ---
[facility] [place] Office [place] [facility] [place] Office [address] Galilea Coughlin [address] [phone] F: [phone] F: [phone] F: [phone] F: [phone] Physical Therapy Plan of Care Date of Evaluation: 09/28/24 Date of Surgery: Diagnosis: Bilateral arm pain (MD Dx) Neck pain, bilateral shoulder impingement (PT Dx) RS Assessment: Vera is a pleasant 84 y.o. female who is referred to PT by Dr. Bar Eaton MD, with Dx of bilateral arm pain. PT diagnosis is bilateral shoulder impingement with cervical spine pain, does not present as disc related, questionable OA of cervical spine and GHJ due to age but there is no imaging to confirm/refute. Patient impairments include pain in neck, shoulders, bicep area, poor posture, limited bilateral shoulder AROM, limited cervical AROM, weakness in shoulders. Patient current functional limitations are reaching , getting dressed, turning steering wheel when driving, putting seat belt on, reaching behind back, holding railing with stairs. Patient will benefit from skilled PT to address aforementioned impairments and functional limitations to meet established goals. Frequency and Duration: The patient will be seen 2x/week for 4 weeks Short Term Goals: 2 weeks Patient demonstrates consistency and independence with HEP to self manage symptoms. Custodial Goals: 4 weeks Patient presents with increased bilateral shoulder flexion 130 degrees to be able to reach overhead to high cabinets without difficulty. Patient presents with increased bilateral shoulder flexion strength 4+/5 to be able to resume playing bowling recreationally. Treatment Plan: Modalities to reduce pain, spasms and effusion. Manual therapy to restore motion and function. Therapeutic exercise to improve strength and flexibility. Neuromuscular re-education for posture and balance. Therapeutic activities to return to functional activities of daily living. Electronically signed by: Camilo Waters, PT, DPT Please sign and return to therapist. Thank you for your referral.
== END 2024-11-23 15:55 | disposition home or self-care (01) ==
LOC: HO.PT 14:47
PROVIDERS: PCP Internal Medicine; Visit Provider Internal Medicine
DX: M79.602 Pain in left arm (principal); M79.601 Pain in right arm
CPT/HCPCS: 97110; 97140; 97161; 97530

== ENCOUNTER 2024-12-24 08:51 | Outpatient (AMB) | payer OTHER, SELFPAY ==
[2024-12-24 08:53] VITALS: BP 124/80; PULSE 86; TEMP 36.3; O2SAT 99; BMI 37.4
--- NOTE | 2024-12-24 08:53 | MHC.PC.OV ---
Vital Signs 12/24/24 08:53 Height 5 ft 1 in Weight 198 lb BMI 37.4 BP 124/80 Blood Pressure Location Lt brachial Position Sitting Pulse 86 Pulse Source Pulse Oximeter Temp 97.4 F Temp Source Axillary Pulse Oximetry (%) 99 Oxygen Delivery Method Room Air Intake Visit Reasons: 1 MOnth F/U Telephone Exchange Operator Required: No Accompanied by: nurse Allergies No Known Allergies [No Known Allergies*] Allergy (Verified 12/24/24 08:54) Tobacco use date assessed: 12/24/24 Fall risk assessment: No Falls in past year Last assessed Fall Risk: 12/24/24 Dental Screening Dental Screen Date: 12/24/24 Did you have a dental visit in the last 12 months?: Yes PFSH Medical History Osteoarthritis of right knee Urinary incontinence Hx of squamous cell carcinoma of skin Hx of skin cancer, basal cell Arthritis Ambulates with cane A-fib Epidermal cyst of face Paroxysmal atrial fibrillation HTN (hypertension) Right bundle branch block (RBBB) on electrocardiogram (ECG) Surgical History Hx of colonoscopy (~10/24/15) Hx of vein stripping Hx of bilateral cataract extraction History of total knee replacement (~2014) History of tonsillectomy Family History (Updated 12/24/24 @ 09:10 by Ruthie Higgins MA) Father Pancreatic cancer Mother Stroke CHF (congestive heart failure) Diabetes mellitus Brother Cardiovascular disease Social History Household Members: Other Household Members Other:: sister from [facility] Caregiver staying overnight: No Housing: Apartment Are you a primary pediatric critical care nurse to a significant other at home: No Do you presently have visiting nurse or other home services: No 75 years or older and lives alone: No Alcohol intake: current Alcohol intake frequency: holidays/special occasions only Alcohol type: wine Patient Tobacco Use Status: Never used Tobacco e-Cigarette/Vaping Use: Never Used service: No Current occupational status: retired Cognitive needs: No Hearing needs: Yes (reading glasses) Vision needs: Yes (reading glasses) Questionnaire PHQ-9 Over the last 2 weeks, how often have you been bothered by any of the following problems? 1. Little interest or pleasure in doing things: not at all 2. Feeling down, depressed, or hopeless: not at all 3. Trouble falling or staying asleep, or sleeping too much: not at all 4. Feeling tired or having little energy: not at all 5. Poor appetite or overeating: not at all 6. Feeling bad about yourself - or that you are a failure or have let yourself or your family down: not at all 7. Trouble concentrating on things, such as reading the newspaper or watching television: not at all 8. Moving or speaking so slowly that other people could have noticed. Or the opposite - being so fidgety or restless that you have been moving around a lot more than usual: not at all 9. Thoughts that you would be better off or of hurting yourself in some way: not at all Total score: 0 Source: Developed by Drs. Gilbert Joel, Kelsey Merida, Nikolai Anders and colleagues, with an educational nestor from [employer]. Thrive Questionnaire Date Thrive assessed: 12/24/24 I am a: Patient Within the past 12 months, did the food you bought not last and you didn't have the money to get more?: Never true Within the past 12 months, did you worry whether your food would run out before you got money to buy more?: Never true Do you have trouble paying for medicines?: No Do you have trouble getting transportation to medical appointments?: No Do you have trouble paying your heating and electricity bill?: No Do you have trouble taking care of your child, family member or friend?: No Do you have trouble with day-to-day activities such as bathing, preparing meals, shopping, managing finances, etc.?: No Are you currently unemployed and looking for a job?: No Are you interested in more education?: No THRIVE Score: 0 AUDIT C Alcohol Use Questionnaire (AUDIT-C) 1. How often do you have a drink containing alcohol?: Monthly or less 2. How many drinks containing alcohol do you have on a typical day when you are drinking?: 1 or 2 3. How often do you have six or more drinks on one occasion?: Never Total Score: 1 BLANCO-7 AMB Questionnaire BLANCO-7 Date BLANCO - 7 assessed: 12/24/24 Feeling nervous, anxious, or on edge: 0 = Not at all Not being able to stop or control worryin = Not at all Worrying too much about different things: 0 = Not at all Trouble relaxin = Not at all Being so restless that it is hard to sit still: 0 = Not at all Becoming easily annoyed or irritable: 0 = Not at all Feeling afraid as if something awful might happen: 0 = Not at all Total BLANCO-7 score (0-4 normal; 5-9 mild; 10-14 moderate; 15-21 severe): 0 Source: Developed by Drs. Gilbert Joel, Kelsey Merida, Nikolai Anders and colleagues, with an educational nestor from [employer]. Physical exam (Primary Care) Vital Signs: Last Vital Signs Temp 97.4 F 12/24/24 08:53 Pulse 86 12/24/24 08:53 BP 124/80 12/24/24 08:53 Pulse Ox 99 12/24/24 08:53 Oxygen Delivery Method Room Air 12/24/24 08:53 BMI result Body Mass Index 37.4 Tobacco/Smoking Status: Tobacco use Status Tobacco use date assessed 12/24/24 12/24/24 08:57 Patient Tobacco Use Status Never used Tobacco 12/24/24 08:57 e-Cigarette/Vaping Use Never Used 12/24/24 08:57 PHQ-9: PHQ-9 Score PHQ-9: Total score 0 12/24/24 09:11 Thrive Assessment: Date of Thrive Assessment Date Thrive assessed 12/24/24 12/24/24 08:57 Coding Level of Care Code Est Pt Level 4 (02351) Complex EM visit Add On G2211 Diagnoses Polymyalgia rheumatica M35.3 Assessment & Plan Assessment & Plan (1) Polymyalgia rheumatica: Code(s): M35.3 - Polymyalgia rheumatica Category: Medical Plan: Maintainence of prednisone at 1 mg. to increase as needed. Amlodipine added to the regimen Plan History of Present Illness The patient is an 84-year-old female presenting with management concerns for polymyalgia rheumatica and hypertension. She was previously diagnosed with polymyalgia rheumatica and was responding well to prednisone therapy at a 5 mg dosage. However, she discontinued prednisone two weeks ago after suspecting it to cause elevations in her blood pressure, which was corroborated during a recent hospitalization where her blood pressure reached 180/90. Consequently, she has experienced a mild resurgence of aches and pains, though not as severe as initial presentations. Her medical history is significant for hypertension, previously managed with lisinopril and amlodipine, and atrial fibrillation for which she is taking dronaderone and Pradaxa. Social History - Exercise: Regularly walks over 1,000 steps daily without support. - Functional Status: Independently performs all activities of daily living. - Dietary Supplements: Takes calcium supplements regularly. Review of Systems - Musculoskeletal: Reports aches and pains predominantly in shoulder girdle, upper arms, and thighs. - Cardiovascular: Reports past episodes of significantly elevated blood pressure. - Overall: Denies severe recurrence of polymyalgia rheumatica symptoms after cessation of prednisone. Physical Exam General: Cooperative and healthy appearing Nutritional Appearance: Well nourished Orientation/consciousness: Patient oriented x3 Limitations: No limitations Head: Normal to inspection General: Appearance normal, both eyes and all related structures Neck: Normal visual inspection Chest: Normal palpation of entire chest wall Respiratory: N ormal respiratory effort Neurology: Patient oriented x3, but had difficulty with word finding previously. Results - Imaging: MRI and CT scan reportedly normal. - Cardiac: Echocardiogram shows no significant abnormalities. Plan The management of polymyalgia rheumatica will include prescribing prednisone at an initial dose of 1 mg daily. The dosage may be incrementally increased if symptom control necessitates, ensuring subsequent gradual reductions as dictated by symptom control. Addressing the risk of hypertension exacerbation associated with corticosteroid use involves restarting amlodipine therapy at 5 mg daily. The patient's current use of calcium supplements shall continue to counteract potential corticosteroid-induced bone density decline. Referral to livestock dealer Dr. Gallardo is arranged to facilitate specialist oversight. The patient was instructed in the need to monitor her symptoms closely and report any exacerbations of either her musculoskeletal or cardiovascular symptoms expediently. Patient was informed and verbally consented to the use of an ambient scribe for clinic note documentation during this visit. Discussion Notes I discussed with the patient the management strategies for her polymyalgia rheumatica and the concerns surrounding steroid use, particularly the associated risks of hypertension and osteopenia/osteoporosis. The potential benefit of maintaining her on the lowest effective dose of prednisone was highlighted, alongside the planned reintroduction of amlodipine to better manage blood pressure. I emphasized the importance of regular monitoring of symptoms, being mindful of the gradual onset of prednisone effect, and the need for adjustments following an evaluation of symptoms. We also discussed continuing calcium supplementation and routine weight-bearing exercises as preventative measures against bone density loss. I scheduled a follow-up with Dr. Gallardo in [place] for specialized rheumatological assessment and management and ensured that the importance of follow-up care and potential necessity for adjustments in medication had been clearly understood. Patient Instructions - Start prednisone at 1 mg once daily. Adjust dose if symptoms worsen. - Restart amlodipine at 5 mg once daily. - Take calcium supplementation daily. - Engage in regular weight-bearing exercises. - Monitor blood pressure regularly. - Follow up with Dr. Gallardo for rheumatology consultation. - Report any significant changes in symptoms, especially related to pain or blood pressure, promptly. - Attend scheduled follow-up appointments for ongoing management. Medications: New prednisone 1 mg PO DAILY 90 tabs 1RF amlodipine 5 mg PO DAILY 90 tabs 1RF
== END 2024-12-24 09:26 | disposition home or self-care (01) ==
LOC: HO.HMCHD 08:51
PROVIDERS: PCP Internal Medicine; Visit Provider Internal Medicine
DX: M35.3 Polymyalgia rheumatica (principal)

== ENCOUNTER → 2024-12-24 08:51 | Outpatient (BNVA) | payer OTHER, SELFPAY | PROVIDERS: PCP Internal Medicine; Visit Provider Internal Medicine | DX: M35.3 Polymyalgia rheumatica (principal) | CPT/HCPCS: 99212 ==

== ENCOUNTER 2025-01-10 10:38 | Outpatient (REF) | payer OTHER, SELFPAY ==
[2025-01-10 17:38] LABS: MANUAL DIFF FLAG NO
[2025-01-10 17:53] LABS: Basophils Percent Auto 0.8 % (0-2); Eosinophils Percent Auto 0.3 % (0-4); Hematocrit 39.3 % (37.0-47.0); Hemoglobin 12.6 g/dl (12.0-16.0); Imm Gran Abs Auto 0.01 X10*3/uL (0.00-0.03); Imm Gran Pct Auto 0.3 % (0.0-0.4); Lymphocytes Absolute Auto 0.9 X10*3/uL (1.2-4.9); Lymphocytes Percent Auto 22.1 % (20-40); Mean Corpuscular HGB Conc 32.1 g/dl (31.0-35.0); Mean Corpuscular Volume 96.8 fL (80.0-98.0); Mean Platelet Volume 10.8 fL (9.4-12.3); Monocytes Absolute Auto 0.3 X10*3/uL (0.1-1.2); Monocytes Percent Auto 8.3 % (2-11); Neutrophils Absolute Auto 2.6 x10*3/uL (2.0-8.3); Neutrophils Percent Auto 68.2 % (45-73); Platelet Count 207 X10*3/uL (160-400); Red Blood Count 4.06 X10*6/uL (4.20-5.50); Red Cell Distribution Width 13.6 % (11.0-16.0); White Blood Count 3.8 X10*3/uL (4.8-10.8)
[2025-01-10 18:00] LABS: Rheumatoid Factor < 13.0 IU/mL (<15.0)
[2025-01-10 18:06] LABS: Alanine Aminotransferase 11 U/L (0-31); Aspartate Amino Transferase 31 U/L (5-31); C Reactive Protein 0.53 mg/dL (< or = 0.50); Estimated Glomerular Filt Rate > 60
[2025-01-10 18:51] LABS: Erythrocyte Sedimentation Rate 53 MM/HR (0-20)
[2025-01-11 08:37] LABS: HBS Num1 0.69 mIU/mL (0-7.99); HBc Num1 0.25 S/CO (0.00-0.79); Hepatitis B Core Antibody Nonreactive (Nonreactive); Hepatitis B Surface Antigen Negative (Negative); ~Hepatitis B Surface Antibody NONREACTIVE (Nonreactive); ~Hepatitis C Antibody Nonreactive (Nonreactive)
[2025-01-14 21:53] LABS: Cyclic Citrullinated Peptide <16 UNITS
== END 2025-01-10 10:39 | disposition home or self-care (01) ==
LOC: HO.HKASLDS 10:38
PROVIDERS: PCP Internal Medicine; Visit Provider Internal Medicine Rheumatology
DX: M25.50 Pain in unspecified joint (principal); M35.3 Polymyalgia rheumatica; Z79.60 Long term (current) use of unspecified immunomodulators and immunosuppressants; Z79.899 Other long term (current) drug therapy
CPT/HCPCS: 36415; 82085; 82550; 82565; 84450; 84460; 85025; 85652; 86140; 86200; 86431; 86704; 86706; 86803; 87340; 99202

== ENCOUNTER 2025-01-10 10:38 | Outpatient (AMB) | payer OTHER, SELFPAY ==
--- NOTE | 2025-01-10 11:09 | A.OFFVIS_ITS ---
Vital Signs 01/10/25 11:28 Height 5 ft 1 in Weight 197 lb 1.492 oz BMI 37.2 BP 150/92 H Blood Pressure Location Lt brachial Position Sitting Pulse 79 Pulse Source Pulse Oximeter Pulse Oximetry (%) 98 Oxygen Delivery Method Room Air Intake Visit Reasons: Polymyalgia rheumatica Intake Note: Patient presents for Polymyalgia Rheumatica. Allergies No Known Allergies [No Known Allergies*] Allergy (Verified 01/10/25 11:25) HPI HPI Polymyalgia rheumatica: Details: New patient visit. In July she started experiencing pain in bilateral shoulders and neck. She saw PCP Dr. Concepcion in Jul. She was told to take tylenol 500mg TID, which she took without benefit. She was referred to PT. her symptoms progress to involve pain in her thighs when she stood. Initially she had a hard time getting up out of bed. She had a hard time making a fist with left hand. She denies joint swelling. She saw another PCP who replaced Dr. Concepcion when he retired in September. She was prescribed prednisone 20mg qd for presumed polymyalgia rheumatica, which took away the pain in 2 days. She had prednisone for 1 week. The pain in her shoulders and biceps returned. She no longer has thigh pain or hand pain. No new joint pain or swelling. She was prescribed prednisone 5mg tid for 10 days then reduced to 5mg daily. she discontinued prednisone when she was admitted for a TIA. She is now back on prednisone 2.5mg daily. Pain in arms is worse at night. MS 15 minutes. Denies headaches, jaw pain, vision loss. She had one day where she saw letters falling off the page. Denies blurry vision or double vision or scalp pain. TIA 12/13/2024 in [place]. She had HTN 234/131 when she went to the hospital. She was admitted for 3 days. Past medical history significant for bilateral knee replacements, paroxysmal atrial fibrillation, hypertension, cataract surgery, BCC and SCC. Mother and brother had RA. Medication list reviewed. [facility] Medical History Osteoarthritis of right knee Urinary incontinence Hx of squamous cell carcinoma of skin Hx of skin cancer, basal cell Arthritis Ambulates with cane A-fib Epidermal cyst of face Paroxysmal atrial fibrillation HTN (hypertension) Right bundle branch block (RBBB) on electrocardiogram (ECG) Surgical History Hx of colonoscopy (~10/24/15) Hx of vein stripping Hx of bilateral cataract extraction History of total knee replacement (~2014) History of tonsillectomy Family History Father Pancreatic cancer Mother Stroke CHF (congestive heart failure) Diabetes mellitus Brother Cardiovascular disease Social History Household Members: Other Household Members Other:: sister from [employer] Caregiver staying overnight: No Housing: Apartment Are you a primary animal daycare provider to a significant other at home: No Do you presently have visiting nurse or other home services: No 75 years or older and lives alone: No Alcohol intake: current Alcohol intake frequency: holidays/special occasions only Alcohol type: wine Patient Tobacco Use Status: Never used Tobacco e-Cigarette/Vaping Use: Never Used service: No Current occupational status: retired Cognitive needs: No Hearing needs: Yes (reading glasses) Vision needs: Yes (reading glasses) Physical Exam Vital Signs: Last Vital Signs Pulse 79 01/10/25 11:28 BP 150/92 H 01/10/25 11:28 Pulse Ox 98 01/10/25 11:28 Oxygen Delivery Method Room Air 01/10/25 11:28 BMI result Body Mass Index 37.2 Const Other: General: Comfortable CVS: RRR Respiratory: clear to auscultation bilaterally. Good respiratory effort Skin: No lesions seen MSK: She is able to get up from seated position without using arms on armrest. Bilateral tenderness of shoulders and biceps. No synovitis. Shoulder abduction 160 degrees bilateral. She has good internal and external rotation of bilateral shoulders. Normal range of motion of cervical spine. Normal range of motion of lower extremities. Assessment & Plan Assessment & Plan (1) Polyarthralgia: Comment: Chronic since July 2024 involving symmetrical shoulder and hip girdle with left hand pain and stiffness. Her clinical course does suggest PMR. Differential diagnosis also needs to be considered for atypical rheumatoid arthritis due to left hand involvement, which presents as PMR. Patient has family history of rheumatoid arthritis with both brother and mother suffering from RA. She had rapid response to prednisone with tolerable symptoms. We discussed management of her symptoms with low-dose prednisone. She was on prednisone for less than 2 weeks when she experienced TIA and hypertension. Typically long-term use of prednisone contributes to hypertension. She will m onitor her blood pressure at home while she is on prednisone, and call office and her PCP if she develops increasing blood pressure. Code(s): M25.50 - Pain in unspecified joint Category: Medical Plan: Laboratory workup ordered Hand x-rays bilateral ordered Increase prednisone 10 mg daily Log blood pressure Return to clinic in 2 weeks (2) Polymyalgia rheumatica: Code(s): M35.3 - Polymyalgia rheumatica Category: Medical Plan: See above Orders: Orders Alanine Aminotransferase 01/10/255.3 - Polymyalgia rheumatica, Z79.60 - terminal carman (current) use of unspecified immunomodulators and immunosuppressants Complete Blood Count Auto Diff 01/10/25.3 - Polymyalgia rheumatica, Z79.60 - terminal carman (current) use of unspecified immunomodulators and immunosuppressants Aldolase 01/10/255.3 - Polymyalgia rheumatica XR hand RT min 3V Today M25.50 - Pain in unspecified joint Aspartate Amino Transferase 01/10/255.3 - Polymyalgia rheumatica, Z79.60 - terminal carman (current) use of unspecified immunomodulators and immunosuppressants Creatinine 01/10/255.3 - Polymyalgia rheumatica, Z79.60 - terminal carman (current) use of unspecified immunomodulators and immunosuppressants Erythrocyte Sedimentation Rate 01/10/255.3 - Polymyalgia rheumatica, Z79.899 - Other buttermaker helper (current) drug therapy C Reactive Protein 01/10/255.3 - Polymyalgia rheumatica, Z79.899 - Other longterm (current) drug therapy Cyclic Citrullinated Peptide 01/10/255.3 - Polymyalgia rheumatica Rheumatoid Factor 01/10/255.3 - Polymyalgia rheumatica Hepatitis B,C Profile 01/10/25.3 - Polymyalgia rheumatica Creatine Kinase Total 01/10/255.3 - Polymyalgia rheumatica XR hand LT min 3V Today M25.50 - Pain in unspecified joint Coding Level of Care Code New Pt Level 4 (25789) Diagnoses Polyarthralgia M25.50 Polymyalgia rheumatica M35.3
[2025-01-10 11:28] VITALS: BP 150/92; PULSE 79; O2SAT 98; BMI 37.2
== END 2025-01-10 12:09 | disposition home or self-care (01) ==
PROVIDERS: PCP Internal Medicine; Visit Provider Internal Medicine Rheumatology
DX: M25.50 Pain in unspecified joint (principal); M35.3 Polymyalgia rheumatica
CPT/HCPCS: 99204

== ENCOUNTER 2025-01-15 14:04 | Outpatient (REF) | payer OTHER, SELFPAY ==
--- NOTE | ~2025-01-15 | XR_ITS ---
CLINICAL HISTORY: M25.50 - Pain in unspecified joint Right hand three views Comparison: None Findings: No acute fracture or dislocation identified. Degenerative change and decreased bone density noted. No evidence of the erosion identified. No radiopaque foreign body noted. Impression: No acute bony abnormality Left hand three views Comparison: None Findings: No acute fracture or dislocation identified. Degenerative change and decreased bone density noted. No evidence of the erosion identified. No radiopaque foreign body noted. Impression: No acute bony abnormality This document has been electronically signed by: Justin Gil MD on 01/15/2025 21:39:43
== END 2025-01-15 14:05 | disposition home or self-care (01) ==
LOC: HO.XRAY 14:04
PROVIDERS: Visit Provider Internal Medicine Rheumatology
DX: M25.541 Pain in joints of right hand (principal); M25.542 Pain in joints of left hand
CPT/HCPCS: 73130

== ENCOUNTER → 2025-01-15 14:08 | Outpatient (BNV) | payer OTHER, SELFPAY | PROVIDERS: Visit Provider Radiology Diagnostic Radiology | DX: M85.841 Other specified disorders of bone density and structure, right hand (principal); M85.842 Other specified disorders of bone density and structure, left hand | CPT/HCPCS: 73130 ==

== ENCOUNTER 2025-01-17 12:09 | Outpatient (REF) | payer OTHER, SELFPAY ==
[2025-01-17 13:27] LABS: B Type Natriuretic Peptide 149 pg/mL (<100)
[2025-01-17 13:32] LABS: Anion Gap 13 (12-20); Blood Urea Nitrogen 31 mg/dL (9-16); Calcium 9.1 mg/dL (8.4-10.2); Carbon Dioxide 29 mmol/L (22-29); Chloride 103 mmol/L (96-108); Erythrocyte Sedimentation Rate 32 MM/HR (0-20); Estimated Glomerular Filt Rate > 60; Glucose Random 99 mg/dL (60-115); Potassium 4.1 mmol/L (3.3-5.1); Sodium 141 mmol/L (135-145)
[2025-01-18 19:34] LABS: CRP High Sensitivity 3.3 mg/L
== END 2025-01-17 12:10 | disposition home or self-care (01) ==
LOC: HO.LAB 12:09
PROVIDERS: Internal Medicine; PCP Internal Medicine; Visit Provider Internal Medicine Cardiovascular Disease
DX: I10 Essential (primary) hypertension (principal); M35.3 Polymyalgia rheumatica
CPT/HCPCS: 36415; 80048; 83880; 85652; 86141

== ENCOUNTER 2025-01-23 08:53 | Outpatient (AMB) | payer OTHER, SELFPAY ==
--- NOTE | 2025-01-23 08:57 | A.OFFPC_ITS ---
Vital Signs 01/23/25 08:58 Height 5 ft 1 in Weight 200 lb BMI 37.8 BP 138/80 Blood Pressure Location Lt brachial Position Sitting Pulse 78 Pulse Source Pulse Oximeter Temp 97.8 F Temp Source Axillary Pulse Oximetry (%) 97 Oxygen Delivery Method Room Air Intake Visit Reasons: 1 Month F/U Line Operator Required: No Accompanied by: Self / Same As Patient Allergies No Known Allergies [No Known Allergies*] Allergy (Verified 01/23/25 08:58) Tobacco use date assessed: 01/23/25 Fall risk assessment: No Falls in past year Last assessed Fall Risk: 01/23/25 Dental Screening Dental Screen Date: 01/23/25 Did you have a dental visit in the last 12 months?: Yes Did you have a dental problem in the last 6 months where you did not have access to dental care?: No PFSH Medical History Osteoarthritis of right knee Urinary incontinence Hx of squamous cell carcinoma of skin Hx of skin cancer, basal cell Arthritis Ambulates with cane A-fib Epidermal cyst of face Paroxysmal atrial fibrillation HTN (hypertension) Right bundle branch block (RBBB) on electrocardiogram (ECG) Surgical History Hx of colonoscopy (~10/24/15) Hx of vein stripping Hx of bilateral cataract extraction History of total knee replacement (~2014) History of tonsillectomy Family History Father Pancreatic cancer Mother Stroke CHF (congestive heart failure) Diabetes mellitus Brother Cardiovascular disease Social History Household Members: Other Household Members Other:: sister from [facility] Caregiver staying overnight: No Housing: Apartment Are you a primary health careers instructor to a significant other at home: No Do you presently have visiting nurse or other home services: No 75 years or older and lives alone: No Alcohol intake: current Alcohol intake frequency: holidays/special occasions only Alcohol type: wine Patient Tobacco Use Status: Never used Tobacco e-Cigarette/Vaping Use: Never Used service: No Current occupational status: retired Cognitive needs: No Hearing needs: No (reading glasses) Vision needs: Yes (reading glasses) Questionnaire PHQ-9 Over the last 2 weeks, how often have you been bothered by any of the following problems? 1. Little interest or pleasure in doing things: not at all 2. Feeling down, depressed, or hopeless: not at all 3. Trouble falling or staying asleep, or sleeping too much: not at all 4. Feeling tired or having little energy: not at all 5. Poor appetite or overeating: not at all 6. Feeling bad about yourself - or that you are a failure or have let yourself or your family down: not at all 7. Trouble concentrating on things, such as reading the newspaper or watching television: not at all 8. Moving or speaking so slowly that other people could have noticed. Or the opposite - being so fidgety or restless that you have been moving around a lot more than usual: not at all 9. Thoughts that you would be better off or of hurting yourself in some way: not at all Total score: 0 Source: Developed by Drs. Gilbert Joel, Kelsey Merida, Nikolai Anders and colleagues, with an educational nestor from [email or web address] Thrive Questionnaire Date Thrive assessed: 01/23/25 I am a: Patient Within the past 12 months, did the food you bought not last and you didn't have the money to get more?: Never true Within the past 12 months, did you worry whether your food would run out before you got money to buy more?: Never true Do you have trouble paying for medicines?: No Do you have trouble getting transportation to medical appointments?: No Do you have trouble paying your heating and electricity bill?: No Do you have trouble taking care of your child, family member or friend?: No Do you have trouble with day-to-day activities such as bathing, preparing meals, shopping, managing finances, etc.?: No Are you currently unemployed and looking for a job?: No Are you interested in more education?: No THRIVE Score: 0 AUDIT C Alcohol Use Questionnaire (AUDIT-C) 1. How often do you have a drink containing alcohol?: Monthly or less 2. How many drinks containing alcohol do you have on a typical day when you are drinking?: 1 or 2 3. How often do you have six or more drinks on one occasion?: Less than monthly Total Score: 2 BLANCO-7 AMB Questionnaire BLANCO-7 Date BLANCO - 7 assessed: 01/23/25 Feeling nervous, anxious, or on edge: 0 = Not at all Not being able to stop or control worryin = Not at all Worrying too much about different things: 0 = Not at all Trouble relaxin = Not at all Being so restless that it is hard to sit still: 0 = Not at all Becoming easily annoyed or irritable: 0 = Not at all Feeling afraid as if something awful might happen: 0 = Not at all Total BLANCO-7 score (0-4 normal; 5-9 mild; 10-14 moderate; 15-21 severe): 0 Source: Developed by Drs. Gilbert Joel, Kelsey Merida, Nikolai Anders and colleagues, with an educational nestor from [email or web address]. Physical exam (Primary Care) Vital Signs: Last Vital Signs Temp 97.8 F 01/23/25 08:58 Pulse 78 01/23/25 08:58 BP 138/80 01/23/25 08:58 Pulse Ox 97 01/23/25 08:58 Oxygen Delivery Method Room Air 01/23/25 08:58 BMI result Body Mass Index 37.8 Tobacco/Smoking Status: Tobacco use Status Tobacco use date assessed 01/23/25 01/23/25 08:59 Patient Tobacco Use Status Never used Tobacco 01/23/25 08:59 e-Cigarette/Vaping Use Never Used 01/23/25 08:59 PHQ-9: PHQ-9 Score PHQ-9: Total score 0 01/23/25 08:59 Thrive Assessment: Date of Thrive Assessment Date Thrive assessed 01/23/25 01/23/25 08:59 Coding Level of Care Code Est Pt Level 4 (13034) Complex EM visit Add On G2211 Diagnoses Polyarthralgia M25.50 Assessment & Plan Assessment & Plan (1) Polyarthralgia: Comment: Chronic since July 2024 involving symmetrical shoulder and hip girdle with left hand pain and stiffness. Her clinical course does suggest PMR. Differ ential diagnosis also needs to be considered for atypical rheumatoid arthritis due to left hand involvement, which presents as PMR. Patient has family history of rheumatoid arthritis with both brother and mother suffering from RA. She had rapid response to prednisone with tolerable symptoms. We discussed management of her symptoms with low-dose prednisone. She was on prednisone for less than 2 weeks when she experienced TIA and hypertension. Typically long-term use of prednisone contributes to hypertension. She will monitor her blood pressure at home while she is on prednisone, and call office and her PCP if she develops increasing blood pressure. Code(s): M25.50 - Pain in unspecified joint Category: Medical Plan: History of Present Illness The patient is an 84-year-old female presenting with management concerns for Polymyalgia Rheumatica (PMR) and associated symptoms. The patient has been taking prednisone, with an increased dose to 10 mg as directed by Dr. Pablo, which has helped alleviate some of her pain. Despite this, she continues to have difficulty making fists in the morning, raising concerns for potential Rheumatoid Arthritis. Blood tests have been performed to help clarify the diagnosis. She is also experiencing peripheral edema for which furosemide has been prescribed. The patient reports shortness of breath after exertion, such as walking for five minutes or climbing stairs. Her home blood pressure readings have been elevated, although it was within a normal range during this visit. She is currently on amlodipine 5 mg, with considerations for a dosage increase. Social History - Reports ability to perform all activities of daily living. Review of Systems - Musculoskeletal: Reports pain and difficulty making fists, especially in the morning. - Respiratory: Reports shortness of breath after walking and climbing stairs. - Cardiovascular: Reports peripheral edema. - General: Reports slight weight gain. Physical Exam General: Cooperative and healthy appearing Nutritional Appearance: Well nourished Orientation/consciousness: Patient oriented x3 Limitations: No limitations Head: Normal to inspection General: Appearance normal, both eyes and all related structures Neck: Normal visual inspection Chest: Normal palpation of entire chest wall Respiratory: Short of breath after walking for about five minutes and when going upstairs ormal respiratory effort Neurology: Patient oriented x3 Results Plan 1. Polymyalgia Rheumatica - Prednisone increased to 10 mg for symptom control. - Blood work performed to assess for Rheumatoid Arthritis. 2. Rheumatoid Arthritis - Awaiting blood work results to confirm diagnosis and adjust management accordingly. 3. Peripheral Edema - Furosemide 20 mg prescribed. - Monitor response and adjust dosage as necessary. 4. Dyspnea On Exertion - Continue to monitor symptoms. 5. Hypertension - Current amlodipine dose 5 mg. - Consider increasing to 10 mg with monitoring for side effects. Discussion Notes During the visit, we discussed the management of the patient's Polymyalgia Rheumatica with an increased prednisone dosage to address her pain symptoms. We explored the possibility of Rheumatoid Arthritis due to her difficulty making fists and have conducted blood work to confirm the diagnosis. For her peripheral edema, we have initiated furosemide treatment and will monitor her response. The patient was informed about the risks and benefits of increasing her amlodipine dosage to manage her hypertension, with the potential for increased swelling as a side effect. Follow-up with Dr. Pablo is scheduled for further evaluation and to discuss blood work results. Patient Instructions - Continue taking prednisone as prescribed by Dr. Pablo. - Monitor any changes in symptoms, especially pain and swelling. - Take furosemide as directed for swelling in the feet. - Keep track of home blood pressure readings and report any significant changes. - Follow up with Dr. Pablo for further evaluation and blood work results.
[2025-01-23 08:58] VITALS: BP 138/80; PULSE 78; TEMP 36.6; O2SAT 97; BMI 37.8
== END 2025-01-23 09:28 | disposition home or self-care (01) ==
LOC: HO.HMCHD 08:53
PROVIDERS: PCP Internal Medicine; Visit Provider Internal Medicine
DX: M25.50 Pain in unspecified joint (principal)

== ENCOUNTER → 2025-01-23 08:53 | Outpatient (BNVA) | payer OTHER, SELFPAY | PROVIDERS: PCP Internal Medicine; Visit Provider Internal Medicine | DX: Z13.89 Encounter for screening for other disorder (principal) | CPT/HCPCS: 99212 ==

== ENCOUNTER 2025-01-23 09:40 | Outpatient (REF) | payer OTHER, SELFPAY ==
[2025-01-23 11:43] LABS: B Type Natriuretic Peptide 255 pg/mL (<100)
[2025-01-23 11:49] LABS: Anion Gap 10 (12-20); Blood Urea Nitrogen 33 mg/dL (9-16); Calcium 8.8 mg/dL (8.4-10.2); Carbon Dioxide 31 mmol/L (22-29); Chloride 105 mmol/L (96-108); Estimated Glomerular Filt Rate > 60; Glucose Random 89 mg/dL (60-115); Potassium 3.6 mmol/L (3.3-5.1); Sodium 142 mmol/L (135-145)
== END 2025-01-23 09:41 | disposition home or self-care (01) ==
LOC: HO.10HDL 09:40
PROVIDERS: Visit Provider Internal Medicine Cardiovascular Disease
DX: I10 Essential (primary) hypertension (principal); M35.3 Polymyalgia rheumatica; M25.50 Pain in unspecified joint; Z79.899 Other long term (current) drug therapy
CPT/HCPCS: 36415; 80048; 83880; 96127; 99212

== ENCOUNTER 2025-01-23 14:26 | Outpatient (AMB) | payer OTHER, SELFPAY ==
--- NOTE | 2025-01-23 14:27 | MHC.OFFVIS ---
Vital Signs 01/23/25 14:29 Height 5 ft 1 in Weight 199 lb 15.348 oz BMI 37.8 BP 110/58 L Blood Pressure Location Lt brachial Position Sitting Pulse 80 Pulse Source Pulse Oximeter Temp 97 F Pulse Oximetry (%) 99 Oxygen Delivery Method Room Air Intake Visit Reasons: 01/23 urgent slot Intake Note: Patient presents for Polymyalgia Rheumatica. Accompanied by: scott nurse or the community Allergies No Known Allergies [No Known Allergies*] Allergy (Verified 01/23/25 14:33) HPI HPI 01/23 urgent slot: Details: Patient is accompanied by a nurse from her mormonism. She denies joint pain or stiffness. No weakness. No new joint swelling. She has been taking prednisone 10 mg daily. She has been prescribed furosemide due to exertional dyspnea. No history of heart failure. No increased lower extremity swelling. [facility] Medical History Osteoarthritis of right knee Urinary incontinence Hx of squamous cell carcinoma of skin Hx of skin cancer, basal cell Arthritis Ambulates with cane A-fib Epidermal cyst of face Paroxysmal atrial fibrillation HTN (hypertension) Right bundle branch block (RBBB) on electrocardiogram (ECG) Surgical History Hx of colonoscopy (~10/24/15) Hx of vein stripping Hx of bilateral cataract extraction History of total knee replacement (~2014) History of tonsillectomy Family History Father Pancreatic cancer Mother Stroke CHF (congestive heart failure) Diabetes mellitus Brother Cardiovascular disease Social History Household Members: Other Household Members Other:: sister from [facility] Caregiver staying overnight: No Housing: Apartment Are you a primary manager critical care unit to a significant other at home: No Do you presently have visiting nurse or other home services: No 75 years or older and lives alone: No Alcohol intake: current Alcohol intake frequency: holidays/special occasions only Alcohol type: wine Patient Tobacco Use Status: Never used Tobacco e-Cigarette/Vaping Use: Never Used service: No Current occupational status: retired Cognitive needs: No Hearing needs: No (reading glasses) Vision needs: Yes (reading glasses) Physical Exam Vital Signs: BMI result Body Mass Index 37.8 Const Other: General: Comfortable CVS: RRR Respiratory: clear to auscultation bilaterally. Good respiratory effort Skin: No lesions seen MSK: She is able to get up from seated position without using arms on armrest. No tenderness of shoulders are biceps region. No synovitis. Shoulder abduction 160 degrees bilateral. She has normal internal and external rotation of bilateral shoulders. Normal range of motion of cervical spine. Normal range of motion of lower extremities. She is able to squat. Assessment & Plan Assessment & Plan (1) Polymyalgia rheumatica: Comment: Symptoms have resolved on prednisone 10 mg daily. Labs from last week show improving ESR. Rheumatology history: Onset July 2024 with symmetrical shoulder and hip girdle and left hand pain and stiffness. Anti CCP antibody rheumatoid factor negative. Responsive to low-dose prednisone. Code(s): M35.3 - Polymyalgia rheumatica Category: Medical Plan: Continue prednisone 10 mg daily for 2 weeks. Check inflammation markers in 2 weeks. If inflammation markers are normal, I will start slow taper of prednisone 1 mg every month to prevent relapse PMR She will monitor blood pressure. She will call office if blood pressure is uncontrolled. We discussed considering adding methotrexate as steroid sparing agent. Return to clinic early March Orders: Orders C Reactive Protein Today Z79.899 - Other intermediate card tender (current) drug therapy Erythrocyte Sedimentation Rate Today Z79.899 - Other intermediate card tender (current) drug therapy Coding Level of Care Code Est Pt Level 4 (99689) Complex EM visit Add On G2211 Diagnoses Polymyalgia rheumatica M35.3
[2025-01-23 14:29] VITALS: BP 110/58; PULSE 80; TEMP 36.1; O2SAT 99; BMI 37.8
== END 2025-01-23 15:16 | disposition home or self-care (01) ==
LOC: HO.RHES 14:26
PROVIDERS: PCP Internal Medicine; Visit Provider Internal Medicine Rheumatology
DX: M35.3 Polymyalgia rheumatica (principal)
CPT/HCPCS: 99214; G2211

== ENCOUNTER 2025-01-24 13:39 | Outpatient (AMB) | payer OTHER, SELFPAY ==
--- NOTE | 2025-01-24 13:52 | A.OFFVIS_ITS ---
Vital Signs 01/24/25 13:53 Height 5 ft 1 in Weight 199 lb 4.766 oz BMI 37.7 BP 118/82 Blood Pressure Location Lt brachial Position Sitting Pulse 79 Pulse Source Pulse Oximeter Pulse Oximetry (%) 95 Oxygen Delivery Method Room Air Intake Visit Reasons: Hypertension Intake Note: Pt presents to the office today for hypertension. Pt states she is overall feeling well but states she does have SOB on exertion. Allergies No Known Allergies [No Known Allergies*] Allergy (Verified 01/24/25 13:59) Medication List - Last Reconciled 01/24/25 by Wilmer Moya NP amlodipine 10 mg PO DAILY ascorbate calcium (vitamin C) 500 mg PO DAILY calcium carbonate 500 mg PO DAILY dabigatran etexilate 150 mg PO BID docusate sodium (Colace) 100 mg PO BID dronedarone 400 mg PO BID furosemide 20 mg PO DAILY lisinopril 40 mg PO BEDTIME multivitamin 1 tab PO DAILY pravastatin 40 mg PO DAILY prednisone 10 mg PO DAILY walker Folding Front wheeled walker HPI Comments Details: This is an 84-year-old female patient coming in for a follow-up visit, accompanied by her nurse. Patient with history of hypertension and paroxysmal AFib. patient states that back in November she had to go to the ER for uncontrolled blood pressure with the systolic blood pressure in the 200s. This was when she was in [place]. Patient's is reporting feeling well overall other than some shortness of breath with exertion. Patient states that she has been living a sedentary lifestyle until recently where she is trying to be more active and has started noticing some shortness of breath with this. However, patient reports that there has been some improvement in the last couple of days. Patient is denying any associated symptoms of exertional chest pain, p alpitations, dizziness, orthopnea, PND, leg edema, presyncope, or syncope. Patient notes that her blood pressures has been elevated at home and was seen at PCP's office yesterday who increased the amlodipine to 10 mg daily. Patient is reporting compliance with all her medications. [facility] Medical History Osteoarthritis of right knee Urinary incontinence Hx of squamous cell carcinoma of skin Hx of skin cancer, basal cell Arthritis Ambulates with cane A-fib Epidermal cyst of face Paroxysmal atrial fibrillation HTN (hypertension) Right bundle branch block (RBBB) on electrocardiogram (ECG) Surgical History Hx of colonoscopy (~10/24/15) Hx of vein stripping Hx of bilateral cataract extraction History of total knee replacement (~2014) History of tonsillectomy Family History Father Pancreatic cancer Mother Stroke CHF (congestive heart failure) Diabetes mellitus Brother Cardiovascular disease Social History Household Members: Other Household Members Other:: sister from [facility] Housing: Apartment Are you a primary care support representative to a significant other at home: No Do you presently have visiting nurse or other home services: No Alcohol intake: current Alcohol intake frequency: holidays/special occasions only Alcohol type: wine Patient Tobacco Use Status: Never used Tobacco e-Cigarette/Vaping Use: Never Used service: No Current occupational status: retired Cognitive needs: No Hearing needs: No (reading glasses) Vision needs: Yes (reading glasses) Physical Exam Vital Signs: Last Vital Signs Pulse 79 01/24/25 13:53 BP 118/82 01/24/25 13:53 Pulse Ox 95 01/24/25 13:53 Oxygen Delivery Method Room Air 01/24/25 13:53 BMI result Body Mass Index 37.7 Const General: cooperative, healthy appearing, comfortable and no acute distress Orientation/consciousness: patient oriented x3 HEENT Head: Yes normal to inspection Neck Neck: Yes normal visual inspection, Yes trachea midline and Yes supple Chest Chest palpation & inspection: normal inspection of the chest Resp Effort & Inspection: normal respiratory effort Auscultation: clear to auscultation bilaterally, no crackles, no rales, no rhonchi and no wheezes Cardio Jugular venous distension: no JVD Palpation: normal PMI Rate: regular rate Rhythm: regular rhythm Heart sounds: S1 normal heart sound present, S2 normal heart sound present, no click, no gallops, no murmurs and no rubs Peripheral pulses: Peripheral pulses 2+ throughout GI Inspection: Yes normal to inspection Palpation (GI): Soft to palpation Auscultation: normal bowel sounds Skin General skin exam: no rashes or lesions noted Neuro General: patient oriented x3 Extrem General: Yes normal to inspection, No no pedal edema and No calf tenderness Psych Appearance: grossly normal Mental Status: mental status grossly normal Speech and movement: Normal speech and movement present Office Procedures EKG Details: EKG today showed normal sinus rhythm, rate 73 beats per minute, right bundle branch block left anterior fascicular block, consistent with bifascicular block, normal NM, [place]. [id number], Complete Assessment & Plan Assessment & Plan (1) Paroxysmal atrial fibrillation: Code(s): I48.0 - Paroxysmal atrial fibrillation Category: Medical Plan: EKG today was normal sinus rhythm. Continue Pradaxa for full anticoagulation therapy and Multaq for a rhythm control approach. Clinically stable. Denies any palpitations or recurrences of AFib. No reported signs of bleeding. (2) HTN (hypertension): Code(s): I10 - Essential (primary) hypertension Category: Medical Plan: Blood pressure today is stable. Continue current regimen of amlodipine, Lasix, lisinopril. Patient brings in her home blood pressure is that are mostly elevated in the 150s. PCP had increase amlodipine to 10 mg yesterday. Advised continue to monitor blood pressures at home and keeping a log of it. Ideally, blood pressure goal less than 130/80. Her nurse well get in touch with us in a couple of weeks about her blood pressures at home. (3) Bifascicular block: Code(s): I45.2 - Bifascicular block Category: Medical Plan: EKG with bifascicular block which is unchanged. Clinically stable and asymptomatic. Patient will watch her shortness of breath and in case of it getting worse or persistent then may need further workup. Advised heart healthy diet, regular exercise, losing weight, med compliance, and management of vascular risk factors. Follow up in 3 months. In the interim, patient will call the office with any concerns or change in symptoms. This note was generated using voice recognition software. While every effort has been made to ensure accuracy and proper psychiatric security nurse, there may be occasional errors that could affect the content or meaning of the described symptoms. Orders: Orders AMB EKG-In Office Today I48.0 - Paroxysmal atrial fibrillation Coding Level of Care Code Est Pt Level 4 (85296) Complex EM visit Add On G2211 Diagnoses Paroxysmal atrial fibrillation I48.0 HTN (hypertension) I10 Bifascicular block I45.2 CPT Codes EKG - CPT: 27115-[id number], Complete ([id number]) Time Spent (min) 31 Comment Time spent in reviewing the chart, test results, assessment, counseling and documentation.
[2025-01-24 13:53] VITALS: BP 118/82; PULSE 79; O2SAT 95; BMI 37.7
== END 2025-01-24 14:43 | disposition home or self-care (01) ==
LOC: HO.HCS 13:40
DX: I48.0 Paroxysmal atrial fibrillation (principal); I10 Essential (primary) hypertension; I45.2 Bifascicular block
CPT/HCPCS: 93010; 99214; G2211

== ENCOUNTER → 2025-01-24 13:39 | Outpatient (BNVA) | payer OTHER, SELFPAY | DX: I48.0 Paroxysmal atrial fibrillation (principal); I45.2 Bifascicular block; I10 Essential (primary) hypertension; R94.31 Abnormal electrocardiogram [ECG] [EKG] | CPT/HCPCS: 93005; 99212 ==

== ENCOUNTER 2025-02-07 08:44 | Outpatient (REF) | payer OTHER, SELFPAY ==
[2025-02-07 10:30] LABS: C Reactive Protein 0.33 mg/dL (< or = 0.50)
[2025-02-07 10:44] LABS: Erythrocyte Sedimentation Rate 22 MM/HR (0-20)
== END 2025-02-07 08:45 | disposition home or self-care (01) ==
LOC: HO.10HDL 08:44
PROVIDERS: Visit Provider Internal Medicine Rheumatology
DX: Z79.899 Other long term (current) drug therapy (principal)
CPT/HCPCS: 36415; 85652; 86140

== ENCOUNTER 2025-04-01 07:35 | Outpatient (REF) | payer OTHER, SELFPAY ==
--- OUTSIDE RECORDS SUMMARY | 2025-04-01 07:38 | XMS_ITS | Patient Health Record ---
Author Organization [facility] Address [address] [place] [id number] Care Team Providers Care Waiter Waitress Name Role Phone Uma (RETIRED) Bar MELGAR Primary Care Provide r Unavailable Gilbert Parnell Unavailable [phone] Reason For Referral No Information Medications Medication SIG (Take, Route, Frequency, Duration) Notes Start Date End Date Status Pradaxa 150 MG 1 capsule Orally Twi ce a day Active Vitamin C 500 MG 1 tablet Orally Once a day Active Multivitamins 1 1 capsule Orally onc e a day Active Calcium 600 MG 1 tablet with meals Orally Once a day Active hydroCHLOROthiazide 12.5 MG 1 tablet Ora lly Once a day Active Atenolol 25 MG 1 tablet Orally Once a day Active Pravastatin Sodium 40 MG 1 tablet Orally Once a day Active Multaq 400 MG 1 tablet with meals Orally Twice a day Active Colyte w Flavor Packs 240 GM as directed Orally as directed for 1 day(s) 07/31/2015 Active Lisinopril 40 MG 1 tablet Orally Once a day Active Immunizations Vaccine Route Administration Date Status Comme nts Flu vaccine no Preserv 3 and > Unknown 06/29/2015 Admin istered Problems Problem Type SNOMED Code ICD Code Onset Dates Problem Status W/U Status Risk Notes Problem [id number] Encounter for screening for malignant neoplasm of colon (Z12.11) Active confirmed Problem Screening for malignant neoplasm of rectum ([id number]) Encounter for screening for malignant neoplasm of rectum (Z12.12) Active confirmed Problem [id number] Anticoagulant long-term use (Z79.01) Active confirmed Plan Of Treatment Future Test Test Name Order Date COLONOSCOPY 07/29/2015 Insurance Providers Payer Name Payer Address Payer Phone Subscriber Number Group Number Insured Name Patient Relationship to Insured Coverage Start Date Coverage End Date [employer] [address] [place] [phone] [id number] KATY BRIZUELA SR Self - patient is the insured MEDICAID OF [facility] [address] [place] [phone] [id number] KATY BRIZUELA SR Self - patient is the insured Medical (General) History Medical History History ICD Code colonoscopy 12-02-2004--negati ve except for diverticulosis and internal hemorrhoids hypertension hyperlipidemia Atrial fibrillation urinary incontinence Surgical History Surgery Date(Month/Year) vein stripping left knee replacement December 2014 cataract surgery right/going back in two weeks for left June 2015
== END 2025-04-01 07:36 | disposition home or self-care (01) ==
LOC: HO.10HDL 07:35
PROVIDERS: Visit Provider Internal Medicine Rheumatology
DX: M35.3 Polymyalgia rheumatica (principal)
CPT/HCPCS: 36415; 85652; 86140

== ENCOUNTER 2025-04-02 13:34 | Outpatient (AMB) | payer OTHER, SELFPAY ==
--- NOTE | 2025-04-02 13:39 | MHC.OFFVIS ---
Vital Signs 04/02/25 13:43 Height 5 ft 1 in Weight 202 lb BMI 38.2 BP 110/54 L Blood Pressure Location Rt brachial Position Sitting Pulse 75 Pulse Source Pulse Oximeter Pulse Oximetry (%) 97 Oxygen Delivery Method Room Air Intake Visit Reasons: follow up Intake Note: Patient presents for Polymyalgia Rheumatica. Accompanied by: Self / Same As Patient Allergies No Known Allergies (No Known Allergies*) Allergy (Verified 04/02/25 13:40) HPI HPI follow up: Details: She denies joint pain or weakness. Blood pressure has been low. Most recently she had a low reading of 90s/40s. She reports compliant with her antihypertensive regimen. She is experiencing exertional dyspnea. She reports that she had a nuclear stress test in the past and it was normal. She reports that most recent echocardiogram was also normal. [facility] Medical History Osteoarthritis of right knee Urinary incontinence Hx of squamous cell carcinoma of skin Hx of skin cancer, basal cell Arthritis Ambulates with cane A-fib Epidermal cyst of face Paroxysmal atrial fibrillation HTN (hypertension) Right bundle branch block (RBBB) on electrocardiogram (ECG) Surgical History Hx of colonoscopy (~10/24/15) Hx of vein stripping Hx of bilateral cataract extraction History of total knee replacement (~2014) History of tonsillectomy Family History Father Pancreatic cancer Mother Stroke CHF (congestive heart failure) Diabetes mellitus Brother Cardiovascular disease Social History Household Members: Other Household Members Other:: sister from [facility] Caregiver staying overnight: No Housing: Apartment Are you a primary companion caregiver to a significant other at home: No Do you presently have visiting nurse or other home services: No 75 years or older and lives alone: No Alcohol intake: current Alcohol intake frequency: holidays/special occasions only Alcohol type: wine Patient Tobacco Use Status: Never used Tobacco e-Cigarette/Vaping Use: Never Used service: No Current occupational status: retired Cognitive needs: No Hearing needs: No (reading glasses) Vision needs: Yes (reading glasses) Physical Exam Vital Signs: Last Vital Signs Pulse 75 08/05/25 13:43 BP 110/54 L 04/02/25 13:43 Pulse Ox 97 04/02/25 13:43 Oxygen Delivery Method Room Air 04/02/25 13:43 BMI result Body Mass Index 38.2 Const Other: General: Comfortable CVS: RRR Respiratory: clear to auscultation bilaterally. Good respiratory effort Skin: No lesions seen MSK: She is able to get up from seated position without using arms on armrest. No tenderness of shoulders are biceps region. No synovitis. Shoulder abduction 160 degrees bilateral. She has normal internal and external rotation of bilateral shoulders. Bilateral knee flexion 90 degrees. Assessment & Plan Assessment & Plan (1) Polymyalgia rheumatica: Comment: In clinical remission on slow taper of prednisone. We reviewed labs from April 01, which show stable ESR 26 mm/hr with normal CRP. Age and sex adjusted upper limit of normal ESR is 47mm/hr and CRP 2.3 mg/dL. Rheumatology history: Onset July 2024 with symmetrical shoulder and hip girdle and left hand pain and stiffness. Anti CCP antibody rheumatoid factor negative. Responsive to low-dose prednisone. Code(s): M35.3 - Polymyalgia rheumatica Category: Medical Plan: She will continue prednisone 8 mg daily for a month then decrease 1 mg every month until she is on prednisone 5 mg daily. She will remain on 5 mg daily until our follow-up visit She will monitor blood pressure. I recommend that she contact cardiology for blood pressure management -she has had hypotensive readings at home. I will check inflammatory markers at next clinic visit Return to clinic in 3-4 months Coding Level of Care Code Est Pt Level 4 (16909) Complex EM visit Add On G2211 Diagnoses Polymyalgia rheumatica M35.3
[2025-04-02 13:43] VITALS: BP 110/54; PULSE 75; O2SAT 97; BMI 38.2
--- OUTSIDE RECORDS SUMMARY | 2025-04-02 14:16 | XMS_ITS | Patient Health Record ---
Author Organization [facility] Address [address] [place] [address] Care Team Providers Care Data Warehouse Analyst Name Role Phone Uma (RETIRED) Bar MELGAR Primary Care Provide r Unavailable Gilbert Parnell Unavailable [phone] Reason For Referral No Information Medications Medication [...] Problem Status W/U Status Risk Notes Problem [id number] Encounter for screening for malignant neoplasm of colon (Z12.11) Active confirmed Problem Screening for malignant neoplasm of rectum ([id number]) Encounter for screening for malignant neoplasm of rectum (Z12.12) Active confirmed Problem [id number] Anticoagulant long-term use (Z79.01) Active confirmed Plan Of Treatment Future Test Test Name Order Date COLONOSCOPY 07/29/2015 Insurance Providers Payer Name Payer Address Payer Phone Subscriber Number Group Number Insured Name Patient Relationship to Insured Coverage Start Date Coverage End Date [employer] [address] [place] [phone] [id number] KATY BRIZUELA SR Self - patient is the insured MEDICAID OF [facility] [address] [place] [phone] [id number] KATY BRIZUELA SR Self - patient is the insured Medical (General) History Medical History History ICD Code colonoscopy 12-02-2004--negati ve except for diverticulosis and internal hemorrhoids hypertension hyperlipidemia Atrial fibrillation urinary incontinence Surgical History Surgery Date(Month/Year) vein stripping left knee replacement December 2014 cataract surgery right/going back in two weeks for left June 2015
== END 2025-04-02 14:16 | disposition home or self-care (01) ==
LOC: HO.RHES 13:34
PROVIDERS: PCP Internal Medicine; Visit Provider Internal Medicine Rheumatology
DX: M35.3 Polymyalgia rheumatica (principal)
CPT/HCPCS: 99214; G2211

== ENCOUNTER → 2025-04-02 13:34 | Outpatient (BNVA) | payer OTHER, SELFPAY | PROVIDERS: PCP Internal Medicine; Visit Provider Internal Medicine Rheumatology | DX: M35.3 Polymyalgia rheumatica (principal) | CPT/HCPCS: 99212 ==

== ENCOUNTER 2025-04-04 07:42 | Outpatient (REF) | payer OTHER, SELFPAY ==
[2025-04-04 10:53] LABS: Hematocrit 37.8 % (37.0-47.0); Hemoglobin 12.1 g/dl (12.0-16.0); Mean Corpuscular HGB Conc 32.0 g/dl (31.0-35.0); Mean Corpuscular Hemoglobin 31.3 pg (27.0-33.0); Mean Corpuscular Volume 97.7 fL (80.0-98.0); NRBC Abs Auto 0.000 X10*3/uL (0.0-0.012); NRBC Pct Auto 0.0 /100WBC (0.0-0.2); Platelet Count 199 X10*3/uL (160-400); Red Blood Count 3.87 X10*6/uL (4.20-5.50); White Blood Count 3.9 X10*3/uL (4.8-10.8)
[2025-04-04 11:04] LABS: Anion Gap 12 (12-20); Blood Urea Nitrogen 30 mg/dL (9-16); Calcium 8.7 mg/dL (8.4-10.2); Carbon Dioxide 32 mmol/L (22-29); Chloride 103 mmol/L (96-108); Estimated Glomerular Filt Rate 50; Potassium 3.8 mmol/L (3.3-5.1); Sodium 143 mmol/L (135-145)
[2025-04-04 11:29] LABS: B Type Natriuretic Peptide 153 pg/mL (<100)
== END 2025-04-04 07:43 | disposition home or self-care (01) ==
LOC: HO.10HDL 07:42
PROVIDERS: Visit Provider Internal Medicine Cardiovascular Disease
DX: I10 Essential (primary) hypertension (principal); I48.0 Paroxysmal atrial fibrillation
CPT/HCPCS: 36415; 80048; 83880; 85027

== ENCOUNTER 2025-04-24 12:58 | Outpatient (AMB) | payer OTHER, SELFPAY ==
--- NOTE | 2025-04-24 12:59 | A.OFFPC_ITS ---
Vital Signs 04/24/25 13:04 Height 5 ft 1 in Weight 202 lb BMI 38.2 BP 148/90 H Blood Pressure Location Lt brachial Position Sitting Respiration 16 Pulse 78 Pulse Source Pulse Oximeter Temp 97.5 F Temp Source Temporal Artery Scan Pulse Oximetry (%) 97 Oxygen Delivery Method Room Air Intake Visit Reasons: routine State Game Warden Required: No Accompanied by: Jacinto Allergies No Known Allergies (No Known Allergies*) Allergy (Verified 04/24/25 12:59) Tobacco use date assessed: 01/23/25 Dental Screening Dental Screen Date: 01/23/25 HPI HPI Comments History of Present Illness Details The patient is an 84-year-old female presenting with shortness of breath upon walking moderate distances, approximately three to four minutes. This symptomatology has been ongoing for a prolonged period and has not been extensively evaluated previously. She had an echocardiogram in May of the previous year, which indicated some degree of heart failure, with a follow-up echocardiogram in November of this year, conducted at a different hospital. Despite these findings, cardiology has not addressed the shortness of breath directly, attributing stable blood work from March. Additionally, the patient reports past low blood pressure readings, prompting cessation of amlodipine, which has been recently adjusted to a lower dose of 5 mg but needs readjustment due to fluctuating pressures. She mentions occasional dizziness aligning with low-pressure episodes post-breakfast but notes a recent resolution to this symptom. During this visit, her blood pressure has been higher than expected. Medical History: - Heart Failure - Hypertension - Polymyalgia Rheumatica, currently on a prednisone taper - Paroxysmal Atrial Fibrillation - Bifascicular Block - Dyslipidemia Surgical History: - Bilateral knee replacement Medications: - Amlodipine 5 mg for hypertension - Lasix for heart failure - Lisinopril for blood pressure - Multivitamins - Prednisone 7mg for polymyalgia rheumat ica - Dabigatran for atrial fibrillation - Pravastatin 40 mg for dyslipidemia - Stool softeners for constipation manag ement Family History: - Mother: Congestive heart failure - Father: Pancreatic cancer Social: - Resides with another sister of [facility] [employer] [facility] - Drives independently - No history of smoking or substance use (marijuana, cocaine) - Social alcohol consumption discontinue d - Incontinent of urine with urgency, par ticularly at night PFSH Medical History (Reviewed 04/02/25 @ 13:41 by Susan Mercado [facility]) Osteoarthritis of right knee Urinary incontinence Hx of squamous cell carcinoma of skin Hx of skin cancer, basal cell Arthritis Ambulates with cane A-fib Epidermal cyst of face Paroxysmal atrial fibrillation HTN (hypertension) Right bundle branch block (RBBB) on electrocardiogram (ECG) Surgical History Hx of colonoscopy (~10/24/15) Hx of vein stripping Hx of bilateral cataract extraction History of total knee replacement (~2014) History of tonsillectomy Family History Father Pancreatic cancer Mother Stroke CHF (congestive heart failure) Diabetes mellitus Brother Cardiovascular disease Social History Household Members: Other Household Members Other:: sister from [facility] Caregiver staying overnight: No Housing: Apartment Are you a primary personal care attendant to a significant other at home: No Do you presently have visiting nurse or other home services: No 75 years or older and lives alone: No Alcohol intake: current Alcohol intake frequency: holidays/special occasions only Alcohol type: wine Patient Tobacco Use Status: Never used Tobacco e-Cigarette/Vaping Use: Never Used service: No Current occupational status: retired Cognitive needs: No Hearing needs: No (reading glasses) Vision needs: Yes (reading glasses) Questionnaire PHQ-9 Over the last 2 weeks, how often have you been bothered by any of the following problems? 1. Little interest or pleasure in doing things: not at all 2. Feeling down, depressed, or hopeless: not at all 3. Trouble falling or staying asleep, or sleeping too much: not at all 4. Feeling tired or having little energy: not at all 5. Poor appetite or overeating: not at all 6. Feeling bad about yourself - or that you are a failure or have let yourself or your family down: not at all 7. Trouble concentrating on things, such as reading the newspaper or watching television: not at all 8. Moving or speaking so slowly that other people could have noticed. Or the opposite - being so fidgety or restless that you have been moving around a lot more than usual: not at all 9. Thoughts that you would be better off or of hurting yourself in some way: not at all Total score: 0 Depression Screening Interpretation: Negative Depression Screening Done: Yes 21197 - PHQ-9 Billing: Yes Source: Developed by Drs. Gilbert Joel, Nikolai Ulloa and colleagues, with an educational nestor from [email or web address] Thrive Questionnaire Date Thrive assessed: 01/23/25 I am a: Patient What is your living situation today?: I have a steady place to live Within the past 12 months, did the food you bought not last and you didn't have the money to get more?: Never true Within the past 12 months, did you worry whether your food would run out before you got money to buy more?: Never true Do you have trouble paying for medicines?: No Do you have trouble getting transportation to medical appointments?: No Do you have trouble paying your heating and electricity bill?: No Do you have trouble taking care of your child, family member or friend?: No Do you have trouble with day-to-day activities such as bathing, preparing meals, shopping, managing finances, etc.?: No Are you currently unemployed and looking for a job?: No Are you interested in more education?: No THRIVE Score: 0 AUDIT C Alcohol Use Questionnaire (AUDIT-C) 1. How often do you have a drink containing alcohol?: Never 3. How often do you have six or more drinks on one occasion?: Never Total Score: 0 Score Reviewed/Action Taken: Yes BLANCO-7 AMB Questionnaire BLANCO-7 Date BLANCO - 7 assessed: 01/23/25 Feeling nervous, anxious, or on edge: 0 = Not at all Not being able to stop or control worryin = Not at all Worrying too much about different things: 0 = Not at all Trouble relaxin = Not at all Being so restless that it is hard to sit still: 0 = Not at all Becoming easily annoyed or irritable: 0 = Not at all Feeling afraid as if something awful might happen: 0 = Not at all Total BLANCO-7 score (0-4 normal; 5-9 mild; 10-14 moderate; 15-21 severe): 0 Source: Developed by Kelsey Ching Kurt Kroenke and colleagues, with an educational nestor from [email or web address] BLANCO-7 Assessment Billing BLANCO-7 Assessment Tool: BLANCO-7 Assessment 51954 Review of Systems Const Details: - Respiratory: Reports shortness of breath on exertion - Cardiovascular: Denies chest pain - Neurological: Denies dizziness currently, denies headaches - Gastrointestinal: Reports constipation occasionally - Musculoskeletal: Denies joint pain currently - Genitourinary: Reports urinary incontinence - Psychiatric: Denies depression or anxiety All systems reviewed & are unremarkable except as noted in HPI and below Physical exam (Primary Care) Vital Signs: Last Vital Signs Temp 97.5 F 04/24/25 13:04 Pulse 78 04/24/25 13:04 Resp 16 04/24/25 13:04 BP 148/90 H 04/24/25 13:04 Pulse Ox 97 04/24/25 13:04 Oxygen Delivery Method Room Air 04/24/25 13:04 BMI result Body Mass Index 38.2 Tobacco/Smoking Status: Tobacco use Status Tobacco use date assessed 01/23/25 04/24/25 13:01 Patient Tobacco Use Status Never used Tobacco 04/24/25 13:01 e-Cigarette/Vaping Use Never Used 04/24/25 13:01 Depression Screening Interpretation: Negative Thrive Assessment: Date of Thrive Assessment Date Thrive assessed 01/23/25 04/24/25 13:01 Advance Care Planning discussion: Exists, not on file Date of discussion: 04/24/25 Who was present: Nurse - President of [facility] (Karolina Mirza) would be DPOA. - DNR/DNI Time spent: 1-15 minutes, not on file Actual minutes spent: 10 Did not discuss due to Cultural/Spiritual beliefs: No Const Other: General: +Alert and oriented, Well nourished, No acute distress. Eye: Pupils are equal, round and reactive to light, Intact accommodation, Extraocular movements are intact, Normal conjunctiva, Vision unchanged. HENT: Normocephalic, Atraumatic, Tympanic membranes are clear, Normal hearing, Oral mucosa is moist, No pharyngeal erythema, Ear canals patent. Respiratory: Lungs CTA bilaterally, No wheeze, Respirations are non-labored. Cardiovascular: Regular rate, Regular rhythm, S1 auscultated, S2 auscultated, No murmur, Good pulses equal in all extremities, Normal peripheral perfusion, Trace edema on both legs. Gastrointestinal: Soft, Non-tender, Non-distended, Normal bowel sounds, No organomegaly. Musculoskeletal: Normal range of motion, Normal strength, No tenderness, No swelling, No deformity, Normal gait. Integumentary: Warm, Dry, Rex, Intact, Skin lesions noted. Neurologic: Alert, Oriented, Normal sensory, Normal motor function, No focal def ects, Cranial Nerves II-XII are grossly intact, Normal deep tendon reflexes. Psychiatric: Cooperative, Appropriate mood & affect, Normal judgment. Coding Level of Care Code Est Pt Level 4 (09888) Complex EM visit Add On G2211 Diagnoses Hypertension, unspecified type I10 Hypertension type: unspecified Paroxysmal atrial fibrillation I48.0 Bifascicular block I45.2 Polymyalgia rheumatica M35.3 Additional Codes BLANCO-7 Assessment Billing - BLANCO-7 Assessment Tool: BLANCO-7 Assessment 99167 ([id number]) PHQ-9 - 19699 - PHQ-9 Billing: Yes ([id number]) Vital Signs *Quality* - Advance Care Planning discussion: Exists, not on file ([id number]) Vital Signs *Quality* - Time spent: 1-15 minutes, not on file ([id number]) Assessment & Plan Assessment & Plan (1) HTN (hypertension): Comment: - Continue amlodipine at 5 mg due to low blood pressure risk with higher doses (had dizziness previously) and pressures at home well controlled below 130 - Monitor blood pressure, particularly in the mornings. Code(s): I10 - Essential (primary) hypertension Category: Medical Qualifiers: Hypertension type: unspecified Qualified Code(s): I10 - Essential (primary) hypertension Plan: - Maintain amlodipine 5 mg. - Monitor morning blood pressures carefully. (2) Paroxysmal atrial fibrillation: Comment: - Continue anticoagulation with dabigatran & Multaq Code(s): I48.0 - Paroxysmal atrial fibrillation Category: Medical (3) Bifascicular block: Comment: Noted on EKG in cardio clinic with no acute intervention per academic interventionist. Plan to intervfene if she has worsening dyspnea Code(s): I45.2 - Bifascicular block Category: Medical (4) Polymyalgia rheumatica: Comment: Diagnosed in 2024, initially on treatment with prednisone 10 which has gradually been weaned down and currently at 7 mg per day with plans to decrease by 1 mg every month until 5 mg and continue indefinitely Code(s): M35.3 - Polymyalgia rheumatica Category: Medical Plan: - Continue Prednisone - Continue Rheumatology follow up Plan 1. Heart Failure - Continue Lasix for management of fluid retention. - Monitor weight daily due to prednisone potentially causing fluid retention. - If weight increases significantly, consider adjusting the dose of Lasix. 5. Dyslipidemia - Continue pravastatin 40 mg for cholesterol management. 6. Urinary Incontinence - Recommend scheduled toileting every two hours to manage urgency, and change fluid initake During today's visit, we discussed the patient's ongoing management for heart failure, hypertension, polymyalgia rheumatica, and paroxysmal atrial fibrillation. I emphasized the importance of weight monitoring and blood pressure readings at home, particularly due to the combined effects of prednisone and diuretics. We reviewed her current medications and confirmed that no new changes other than a prescription refill for 5 mg of amlodipine is necessary at this time. The patient was informed about the risks of low blood pressure and monitoring advised to prevent complications. Incontinence and methods to manage it by scheduled toileting were also thoroughly discussed. The need to continue her current cardiovascular treatments was reinforced, and her preference for in-person follow-ups was noted. Our next appointment is scheduled in three months, at which point we will reassess her progress and make any necessary adjustments. Orders: Orders Hemoglobin A1c Today I10 - Essential (primary) hypertension Vitamin D 25-OH Total Today I10 - Essential (primary) hypertension TSH reflex Free T4 Today I10 - Essential (primary) hypertension Lipid Panel Today I10 - Essential (primary) hypertension Medications: New amlodipine 5 mg PO DAILY 90 tabs 0RF 90 days Patient Instructions: - Continue taking your current medications as directed. - Monitor your weight daily and your blood pressure regularly. - Schedule bathroom breaks every two hours during the day. - Limit your fluid intake in the evening to reduce nighttime urination. - Call the clinic if you experience any new or worsening symptoms. - Return for a follow-up appointment in three months.
[2025-04-24 13:04] VITALS: BP 148/90; PULSE 78; RESP 16; TEMP 36.4; O2SAT 97; BMI 38.2
--- OUTSIDE RECORDS SUMMARY | 2025-04-24 13:25 | XMS_ITS | Patient Health Record ---
Author Organization [facility] Address [address] [place] [address] Care Team Providers Care Atg Architect Name Role Phone Uma (RETIRED) Bar MELGAR Primary Care Provide r Unavailable Gilbert Parnell Unavailable [phone] Reason For Referral No Information Medications Medication [...] Problem Status W/U Status Risk Notes Problem [id number] Encounter for screening for malignant neoplasm of colon (Z12.11) Active confirmed Problem Encounter for screening for malignant neoplasm of rectum (Z12.12) Active confirmed Problem 433931676 Anticoagulant long-term use (Z79.01) Active confirmed Plan Of Treatment Future Test Test Name Order Date COLONOSCOPY 07/29/2015 Insurance Providers Payer Name Payer Address Payer Phone Subscriber Number Group Number Insured Name Patient Relationship to Insured Coverage Start Date Coverage End Date [employer] [employer] [address] [place] [phone] [id number] KATY BRIZUELA SR Self - patient is the insured MED[place]ID OF [facility] [address] [place] [address] [id number] KATY BRIZUELA SR Self - patient is the insured Medical (General) History Medical History History ICD Code colonoscopy 12-02-2004--negati ve except for diverticulosis and internal hemorrhoids hypertension hyperlipidemia Atrial fibrillation urinary incontinence Surgical History Surgery Date(Month/Year) vein stripping left knee replacement December 2014 cataract surgery right/going back in two weeks for left June 2015
== END 2025-04-24 14:14 | disposition home or self-care (01) ==
LOC: HO.HMCHD 12:59
PROVIDERS: PCP Student in an Organized Health Care Education/Training Program; Visit Provider Student in an Organized Health Care Education/Training Program
DX: I10 Essential (primary) hypertension (principal); I48.0 Paroxysmal atrial fibrillation; I45.2 Bifascicular block; M35.3 Polymyalgia rheumatica; Z00.00 Encounter for general adult medical examination without abnormal findings

== ENCOUNTER → 2025-04-24 12:58 | Outpatient (BNVA) | payer OTHER, SELFPAY | PROVIDERS: PCP Internal Medicine; Visit Provider Student in an Organized Health Care Education/Training Program | DX: I11.0 Hypertensive heart disease with heart failure (principal); I50.9 Heart failure, unspecified; I48.0 Paroxysmal atrial fibrillation; I45.2 Bifascicular block; M35.3 Polymyalgia rheumatica; E78.5 Hyperlipidemia, unspecified; R32 Unspecified urinary incontinence; Z79.01 Long term (current) use of anticoagulants; Z79.52 Long term (current) use of systemic steroids; Z79.899 Other long term (current) drug therapy; Z13.31 Encounter for screening for depression | CPT/HCPCS: 96127; 99212 ==

== ENCOUNTER 2025-05-21 09:48 | Outpatient (REF) | payer OTHER, SELFPAY ==
--- NOTE | ~2025-05-21 | XR_ITS ---
EXAMINATION: XR CHEST CLINICAL INFORMATION: R06.02 - Shortness of breath COMPARISON: September 15, 2018. TECHNIQUE: PA and lateral views FINDINGS: Hyperinflated lungs. Pulmonary reticular pattern. No consolidation, pleural effusion or pneumothorax. Cardiomediastinal silhouette size is normal. Calcified plaque thoracic aorta wall. Multilevel spondylosis and osteopenia versus osteoporosis. XR/XR chest 2V IMPRESSION: Posterior COPD emphysematous type changes without acute airspace disease. Atherosclerosis disease. Osteopenia versus osteoporosis. Electronically signed by: Bryan Mendoza MD 05/21/2025 11:18 AM EDT
[2025-05-21 11:14] LABS: Hematocrit 38.0 % (37.0-47.0); Hemoglobin 12.3 g/dl (12.0-16.0); Mean Corpuscular HGB Conc 32.4 g/dl (31.0-35.0); Mean Corpuscular Hemoglobin 31.9 pg (27.0-33.0); Mean Corpuscular Volume 98.7 fL (80.0-98.0); NRBC Abs Auto 0.000 X10*3/uL (0.0-0.012); NRBC Pct Auto 0.0 /100WBC (0.0-0.2); Platelet Count 219 X10*3/uL (160-400); Red Blood Count 3.85 X10*6/uL (4.20-5.50); White Blood Count 5.8 X10*3/uL (4.8-10.8)
[2025-05-21 11:45] LABS: NT Pro B Type Natriuretic Pept 1546.2 pg/mL (<300)
[2025-05-21 12:24] LABS: Anion Gap 12 (12-20); Blood Urea Nitrogen 40 mg/dL (9-16); Calcium 9.0 mg/dL (8.4-10.2); Carbon Dioxide 32 mmol/L (22-29); Chloride 104 mmol/L (96-108); Cholesterol 150 mg/dL (<200); Estimated Glomerular Filt Rate 42; HDL Cholesterol 51 mg/dL (>40); Potassium 3.6 mmol/L (3.3-5.1); Sodium 144 mmol/L (135-145); Triglycerides 99 mg/dL (<150)
== END 2025-05-21 09:49 | disposition home or self-care (01) ==
LOC: HO.XRAY 09:48
PROVIDERS: PCP Student in an Organized Health Care Education/Training Program; Visit Provider Internal Medicine Cardiovascular Disease
DX: I10 Essential (primary) hypertension (principal); I48.0 Paroxysmal atrial fibrillation; I45.10 Unspecified right bundle-branch block; I48.19 Other persistent atrial fibrillation; Z79.899 Other long term (current) drug therapy
CPT/HCPCS: 36415; 71046; 80048; 80061; 82306; 83036; 83880; 84443; 85027; 93005; 99212

== ENCOUNTER 2025-05-21 09:48 | Outpatient (AMB) | payer OTHER, SELFPAY ==
--- NOTE | 2025-05-21 09:51 | A.OFFVIS_ITS ---
Vital Signs 05/21/25 09:52 Height 5 ft 1 in Weight 200 lb 9.93 oz BMI 37.9 BP 96/58 L Blood Pressure Location Lt brachial Position Sitting Pulse 94 Intake Visit Reasons: 6 mth f/up Intake Note: 6 month with ekg c/o no energy and sob with any excretion Sales Trainer Required: No Allergies No Known Allergies (No Known Allergies*) Allergy (Verified 04/24/25 12:59) Medication List - Last Reconciled 05/21/25 by Lee Barajas MD amlodipine 5 mg PO DAILY 90 days ascorbate calcium (vitamin C) 500 mg PO DAILY calcium carbonate 500 mg PO DAILY dabigatran etexilate 150 mg PO BID docusate sodium (Colace) 100 mg PO BID dronedarone 400 mg PO BID furosemide 20 mg PO DAILY lisinopril 40 mg PO BEDTIME multivitamin 1 tab PO DAILY pravastatin 40 mg PO DAILY prednisone 7 mg PO DAILY walker Folding Front wheeled walker HPI Comments Details: Sister Vera comes for follow-up and says she has not been feeling well since she woke up this morning. She is feeling tired and fatigued and more short of breath. She says over the last few months she has been getting increasing shortness of breath. No clear orthopnea, PND, leg edema. She said about a week ago she had a transient episodes of AFib that self terminated. She has been doing well otherwise. She including went bowling yesterday and was doing well. This morning when she woke up and not feeling well she came to the usual visit. Noted to be in atrial fibrillation with controlled ventricular response. She has no lightheadedness, syncope. No chest pain. She has been taking all her medications religiously. Denies any current palpitations. [facility] Medical History Osteoarthritis of right knee Urinary incontinence Hx of squamous cell carcinoma of skin Hx of skin cancer, basal cell Arthritis Ambulates with cane A-fib Epidermal cyst of face Paroxysmal atrial fibrillation HTN (hypertension) Right bundle branch block (RBBB) on electrocardiogram (ECG) Surgical History Hx of colonoscopy (~10/24/15) Hx of vein stripping Hx of bilateral cataract extraction History of total knee replacement (~2014) History of tonsillectomy Family History Father Pancreatic cancer Mother Stroke CHF (congestive heart failure) Diabetes mellitus Brother Cardiovascular disease Social History Household Members: Other Household Members Other:: sister from [facility] Housing: Apartment Are you a primary careers adviser to a significant other at home: No Do you presently have visiting nurse or other home services: No Alcohol intake: current Alcohol intake frequency: holidays/special occasions only Alcohol type: wine Patient Tobacco Use Status: Never used Tobacco e-Cigarette/Vaping Use: Never Used service: No Current occupational status: retired Cognitive needs: No Hearing needs: No (reading glasses) Vision needs: Yes (reading glasses) Review of Systems Const Denies chills, Denies fatigue, Denies fever(s), Denies frequent falls, Denies weakness, Denies weight gain and Denies weight loss ENT Denies dizziness Card Denies chest pain, Denies leg edema, Denies lightheadedness, Denies palpitations, Denies dyspnea, Denies dyspnea on exertion, Denies orthopnea and Denies other (loss of consciousness) Resp Denies cough, Denies dyspnea and Denies dyspnea on exertion GI Denies hematochezia and Denies change in stool character Musc Denies abnormal gait, Denies muscle weakness, Denies numbness, Denies radiating pain into limb and Denies tingling Neuro Denies abnormal gait, Denies dizziness, Denies frequent falls, Denies numbness, Denies tingling and Denies weakness Endo Denies fatigue and Denies palpitations Physical Exam Vital Signs: Last Vital Signs Pulse 94 05/21/25 09:52 BP 96/58 L 05/21/25 09:52 BMI result Body Mass Index 37.9 Const General: comfortable, alert and awake Nutritional Appearance: obese Orientation/consciousness: oriented to person and patient oriented x3 Limitations: no limitations HEENT Head: Yes normocephalic and Yes atraumatic Neck Neck: Yes trachea midline, Yes supple and Yes no JVD Chest Chest palpation & inspection: normal inspection of the chest Resp Effort & Inspection: normal respiratory effort Auscultation: clear to auscultation bilaterally Cardio Jugular venous distension: no JVD Palpation: normal PMI Rhythm: abnormal rhythm irregularly irregular Heart sounds: S1 normal heart sound present and S2 normal heart sound present Skin General skin exam: ecchymosis Neuro General: oriented to person, patient oriented x3 and no focal motor deficits Extrem General: Yes no clubbing, cyanosis or edema Psych Appearance: grossly normal Office Procedures EKG Details: EKG shows atrial fibrillation with right bundle-branch block with left axis deviation 90863-[id number], Complete Assessment & Plan Assessment & Plan (1) Persistent atrial fibrillation: Code(s): I48.19 - Other persistent atrial fibrillation Category: Medical Plan: Recurrent and persistent atrial fibrillation, highly symptomatic symptoms fatigue and shortness of breath which have worsened since this morning. She was fine till yesterday. She does have increasing symptoms of shortness of breath recently. Will check BNP CBC as well as BNP. Patient is denying any overt heart failure symptoms. Clinically does not appear to be in heart failure. We discussed options and given that she has had increased left atrial size that probably Multaq is ineffective to maintain rhythm in the long run although given that she has had done well on Multaq for many years will pursue synchronized cardioversion on Multaq therapy for now and see if she has recurrent AFib that will require alternative antiarrhythmic such as sotalol/Tikosyn or amiodarone. This was discussed with her. Continue full oral anticoagulation with Pradaxa. Will schedule her for synchronized cardioversion tomorrow if possible. Discussed with the risks, benefits, alternatives of the procedure. She understands agrees. Will also obtain an echocardiogram in near future. Follow up in the clinic in 6 weeks time after Holter monitor. Thank you for allowing me to partake in her care Orders: Orders NT Pro B Type Natriuretic Pept Today R06.02 - Shortness of breath Complete Blood Count no Diff Today R06.02 - Shortness of breath Basic Metabolic Panel Today I48.0 - Paroxysmal atrial fibrillation XR chest 2V Today R06.02 - Shortness of breath Coding Level of Care Code Est Pt Level 4 (30046) Complex EM visit Add On G2211 Diagnoses Persistent atrial fibrillation I48.19 CPT Codes EKG - CPT: 68540-[id number], Complete ([id number])
[2025-05-21 09:52] VITALS: BP 96/58; PULSE 94; BMI 37.9
--- OUTSIDE RECORDS SUMMARY | 2025-05-21 11:50 | XMS_ITS | Patient Health Record ---
Author Organization [facility] Address [address] [place] [phone] Care Team Providers Care Brattice Builder Name Role Phone Uma (RETIRED) Bar MELGAR Primary Care Provide r Unavailable Gilbert Parnell Unavailable [phone] Reason For Referral No Information Medications Medication [...] Problem Status W/U Status Risk Notes Problem [id number] Encounter for screening for malignant neoplasm of colon (Z12.11) Active confirmed Problem Screening for malignant neoplasm of rectum (476000616) Encounter for screening for malignant neoplasm of rectum (Z12.12) Active confirmed Problem [id number] Anticoagulant long-term use (Z79.01) Active confirmed Plan Of Treatment Future Test Test Name Order Date COLONOSCOPY 07/29/2015 Insurance Providers Payer Name Payer Address Payer Phone Subscriber Number Group Number Insured Name Patient Relationship to Insured Coverage Start Date Coverage End Date [employer] [address] [place] [id number] [id number] KATY BRIZUELA SR Self - patient is the insured MEDICAID OF [facility] [address] [place] [phone] [id number] KATY BRIZUELA SR Self - patient is the insured Medical (General) History Medical History History ICD Code colonoscopy 12-02-2004--negati ve except for diverticulosis and internal hemorrhoids hypertension hyperlipidemia Atrial fibrillation urinary incontinence Surgical History Surgery Date(Month/Year) vein stripping left knee replacement December 2014 cataract surgery right/going back in two weeks for left June 2015
== END 2025-05-21 10:27 | disposition home or self-care (01) ==
LOC: HO.HCS 09:49
PROVIDERS: PCP Internal Medicine; Visit Provider Internal Medicine Cardiovascular Disease
DX: I48.19 Other persistent atrial fibrillation (principal)
CPT/HCPCS: 93010; 99214; G2211

== ENCOUNTER → 2025-05-21 10:57 | Outpatient (BNV) | payer OTHER, SELFPAY | PROVIDERS: PCP Student in an Organized Health Care Education/Training Program; Visit Provider Radiology Diagnostic Radiology | DX: J43.9 Emphysema, unspecified (principal) | CPT/HCPCS: 71046 ==

== ENCOUNTER → 2025-05-22 13:07 | Day surgery (SDC) | payer OTHER, SELFPAY ==
[2025-05-22 13:24] VITALS: BMI 36.7
--- NOTE | 2025-05-22 13:43 | ECG_ITS ---
Test Reason : cardioversion Blood Pressure : */* mmHG Vent. Rate : 71 BPM Atrial Rate : 71 BPM P-R Int : 158 ms QRS Dur : 136 ms QT Int : 458 ms P-R-T Axes : 1 -9 18 degrees QTcB Int : 497 ms Normal sinus rhythm Right bundle branch block Abnormal ECG When compared with ECG of 15-Sep-2018 19:41, No significant change was found Referred By: Lee Barajas Electronically Signed By: Geremias Jett
--- NOTE | 2025-05-22 14:27 | PC.NURSE ---
Pt in SR, EKG done, texted Jenn and made aware
--- NOTE | 2025-05-22 14:32 | PC.NURSE ---
Pt sent home with med change to lasix 40mg for next couple days and call the office for any questions
--- OUTSIDE RECORDS SUMMARY | 2025-05-22 15:26 | XMS_ITS | Patient Health Record ---
Author Organization [facility] Address [address] [place] [phone] Care Team Providers Care Research Consultant Name Role Phone Uma (RETIRED) Bar MELGAR Primary Care Provide r Unavailable Gilbert Parnell Unavailable [phone] Reason For Referral No Information Medications Medication [...] Problem Status W/U Status Risk Notes Problem [id number] Encounter for screening for malignant neoplasm of colon (Z12.11) Active confirmed Problem Screening for malignant neoplasm of rectum (430665475) Encounter for screening for malignant neoplasm of rectum (Z12.12) Active confirmed Problem 275473016 Anticoagulant long-term use (Z79.01) Active confirmed Plan Of Treatment Future Test Test Name Order Date COLONOSCOPY 07/29/2015 Insurance Providers Payer Name Payer Address Payer Phone Subscriber Number Group Number Insured Name Patient Relationship to Insured Coverage Start Date Coverage End Date [employer] [address] [place] [phone] [id number] KATY BRIZUELA SR Self - patient is the insured MEDICAID OF [facility] [address] [place] [phone] [id number] KATY BRIZUELA SR Self - patient is the insured Medical (General) History Medical History History ICD Code colonoscopy 12-02-2004--negati ve except for diverticulosis and internal hemorrhoids hypertension hyperlipidemia Atrial fibrillation urinary incontinence Surgical History Surgery Date(Month/Year) vein stripping left knee replacement December 2014 cataract surgery right/going back in two weeks for left June 2015
== END ==
LOC: HO.SSS 13:08
PROVIDERS: PCP Student in an Organized Health Care Education/Training Program; Visit Provider Internal Medicine Cardiovascular Disease
DX: I48.19 Other persistent atrial fibrillation (principal); Z53.8 Procedure and treatment not carried out for other reasons
CPT/HCPCS: 93005

== ENCOUNTER → 2025-05-22 13:43 | Outpatient (BNV) | payer OTHER, SELFPAY | PROVIDERS: PCP Student in an Organized Health Care Education/Training Program; Visit Provider Internal Medicine Cardiovascular Disease | DX: I45.10 Unspecified right bundle-branch block (principal) | CPT/HCPCS: 93010 ==

== ENCOUNTER → 2025-06-18 09:01 | Outpatient (REF) | payer OTHER, SELFPAY ==
--- NOTE | 2025-06-18 09:16 | CA_ITS ---
Transthoracic Echocardiogram Patient (Last, First, Middle): Vera Rees M Gender: Female Date of : 1940 Age: 84 Procedure Date: 06/18/2025 Procedure Type: Transthoracic Echocardiogram Location: OP Height: 152.4 cm Weight: 90.72 kg BSA: 1.87 m2 Heart Rate: bpm BP: 140 / 74 mmHg Material Reprocessing Associate: JANE Referring MD: Lee Barajas MD Tobacco Stemmer: Lee Barajas MD Symptoms: PAF Study Quality: Adequate ECG Rhythm: Sinus Conclusions: - 1. Hyperdynamic LV EF of greater than 70% with grade 2 diastolic dysfunction with moderate asymmetric septal hypertrophy 2. Mildly dilated right atrium 3. Cardiac valvular Dopplers within normal limits 4. Mildly elevated right ventricular systolic pressure with mildly elevated right atrial pressures 5. No gross pericardial effusion Findings Left Ventricle Normal left ventricular cavity size. There is normal left ventricular wall thickness. The left ventricular systolic function is hyperdynamic. The visually estimated ejection fraction is >70%. Spectral Doppler is indicative of a pseudonormal filling pattern. E/E prime ratio is >15, consistent with elevated filling pressures. Evidence suggests grade II (moderate) diastolic dysfunction. There is moderate septal asymmetric hypertrophy. Right Ventricle Normal right ventricular cavity size and systolic function. Atria The left atrium is likely dilated. There is no evidence of interatrial shunt. The right atrium is mildly dilated. Aortic Valve There is mild calcification of the aortic valve. There is mild thickening of the aortic valve. There is no aortic valve stenosis. There is no aortic valve regurgitation. Mitral Valve There is mild anterior and posterior mitral leaflet thickening. There is mild mitral annular calcification. There is trace mitral valve regurgitation. There is no mitral valve stenosis. Pulmonic Valve The pulmonic valve is likely normal. There is trace to mild pulmonic valve regurgitation. Tricuspid Valve Normal tricuspid valve structure. There is mild tricuspid valve regurgitation. Mildly elevated right atrial pressure. Mild pulmonary hypertension is present. Great Vessels The pulmonary artery was not well visualized. There is no dilatation of the ascending aorta measuring 3.50 cm. Small plaque is seen in the sino tubular ridge. Venous The inferior vena cava is normal in size and collapses less than 50% with inspiration. Pericardium/Pleural There is no evidence of pericardial effusion. Prior Study Comparison Changes noted compared to prior study dated: 06/20/2024. left atrial size measured on this study is only borderline enlarged. Measurements 2D Linear Measurements IVSd: 1.60 0.6-0.9/0.6-1.0 cm LVIDd: 4.39 3.9-5.3/4.2-5.9 cm LVIDd Index: 2.35 2.4-3.2/2.2-3.1 cm/m2 LVIDs: 2.75 2.0-3.6 cm LVPWd: 0.80 0.7-1.1 cm LA Diam: 4.40 2.7-3.8/3.0-4.0 cm LAIDs Index: 2.35 1.5-2.3 cm/m2 LV Mass: 237.58 67-162/88-224 g LV Mass Index: 127.05 43-95/49-115 g/m2 LVOT Diam: 1.90 3.0+(-)1.3 cm 2D Systolic Function EF 4C: 77.30 >55% EF 2C: 66.60 >55% EF BiP: 71.50 >55% Mitral Valve MV Pk E: 0.87 MV PK A: 0.63 MV Decel Time: 164.00 E/A: 1.40 E'Lateral: 5.33 E'Medial: 4.68 E/E' Med: 18.70 E/E' Lat: 16.40 PHT: 48.00 MVA PHT: 4.58 Decel [place]: 5.32 Aortic Valve AoV Pk Christopher: 1.02 AoV Pk Grad: 4.00 LVOT LVOT Pk Christopher: 0.82 LVOT Mn Christopher: 0.57 LVOT VTI: 0.22 LVOT Pk Grad: 3.00 LVOT Mn Grad: 1.00 LVOT Diam: 1.90 LVOT Area: 2.84 Diastolic Function MV Pk E: 0.87 MV Pk A: 0.63 E/A: 1.40 E'Medial: 4.68 E/E' Med: 18.70 E' Laterial: 5.33 E/E' Lat: 16.40 Right Ventricle TAPSE (mm): 20.50 TVS' Christopher: 13.90 Tricuspid Valve TR Pk Christopher: 2.88 TR Pk Grad: 33.00 RA Press: 8.00 RVSP: 41.00 Great Vessels Aorta Sinus of Valsalva: 3.30 2.0-3.5 cm Ao Asc: 3.50 2.1-3.4 cm Pulmonary Veins Pulm Vein S/D 0.80 Pulmonary Valve PV Pk Christopher: 1.36 Peak PV Grad: 7.00 [place] Pk Christopher: 2.04 Updated in Other Vendor System with Status of Final Lee Barajas MD electronically signed on 06/18/2025 6:22:40 PM with status of Final
--- OUTSIDE RECORDS SUMMARY | 2025-06-18 09:43 | XMS_ITS | Patient Health Record ---
Author Organization [facility] Address [address] [place] [phone] Care Team Providers Care Blend Technician Name Role Phone Uma (RETIRED) Bar MELGAR Primary Care Provide r Unavailable Gilbert Parnell Unavailable [phone] Reason For Referral No Information Medications Medication [...] Packs 240 GM as directed Orally as directed; Duration: 1 day(s) 07/31/2015 Active Lisinopril 40 MG 1 tablet Orally Once a day Active Immunizations Vaccine Route Administration Date Status Comme nts Flu vaccine no Preserv 3 and > Unknown 06/29/2015 Admin istered Problems Problem Type SNOMED Code ICD Code Onset Dates Problem Status W/U Status Risk Notes Problem Screening for malignant neoplasm of colon (909362547) Encounter for screening for malignant neoplasm of colon (Z12.11) Active confirmed Problem Screening for malignant neoplasm of rectum (032102925) Encounter for screening for malignant neoplasm of rectum (Z12.12) Active confirmed Problem Long-term current use of anticoagulant (851204455) Anticoagulant long-term use (Z79.01) Active confirmed Plan Of Treatment Future Test Test Name Order Date COLONOSCOPY 07/29/2015 Insurance Providers Payer Name Payer Address Payer Phone Subscriber Number Group Number Insured Name Patient Relationship to Insured Coverage Start Date Coverage End Date [employer] [address] [place] [phone] [id number] KATY BRIZUELA SR Self - patient is the insured MEDICAID OF [facility] [address] [place] [phone] [id number] KATY BRIZUELA SR Self - patient is the insured Medical (General) History Medical History History ICD Code colonoscopy 12-02-2004--negati ve except for diverticulosis and internal hemorrhoids hypertension hyperlipidemia Atrial fibrillation urinary incontinence Surgical History Surgery Date(Month/Year) vein stripping left knee replacement December 2014 cataract surgery right/going back in two weeks for left June 2015
--- NOTE | 2025-06-18 11:53 | HM_ITS ---
* Total monitoring time 3 days. * Underlying rhythm is sinus with an average rate of 78/Min. * Frequent supraventricular ectopy with a burden of 4.7%. * Ventricular ectopy noted with a burden of 1.2%. Rare couplets and triplets. Longest run 3 beats. * Atrial fibrillation noted with a burden of 8.2%. Longest episode 5 hours from 44 minutes. Fastest 123/Min. * No significant pauses or high-grade AV blocks. * No patient markers or diary events. MTDD
== END ==
LOC: HO.CARD 09:01
PROVIDERS: PCP Student in an Organized Health Care Education/Training Program; Visit Provider Internal Medicine Cardiovascular Disease
DX: I48.19 Other persistent atrial fibrillation (principal)
CPT/HCPCS: 93242; 93306

== ENCOUNTER → 2025-06-18 09:16 | Outpatient (BNV) | payer OTHER, SELFPAY | PROVIDERS: PCP Student in an Organized Health Care Education/Training Program; Visit Provider Internal Medicine Cardiovascular Disease | DX: I42.2 Other hypertrophic cardiomyopathy (principal); I51.7 Cardiomegaly | CPT/HCPCS: 93306 ==

== ENCOUNTER 2025-07-29 13:24 | Outpatient (AMB) | payer OTHER, SELFPAY ==
--- NOTE | 2025-07-29 13:32 | MHC.PC.OV ---
Vital Signs 07/29/25 13:38 Height 5 ft 1.14 in Weight 205 lb BMI 38.6 BP 126/58 L Blood Pressure Location Lt brachial Position Sitting Respiration 18 Pulse 83 Pulse Source Pulse Oximeter Temp 97.8 F Temp Source Temporal Artery Scan Pulse Oximetry (%) 97 Oxygen Delivery Method Room Air Intake Visit Reasons: 3 month f/u Rolled Seat Trimmer Required: No Accompanied by: Self / Same As Patient Allergies No Known Allergies (No Known Allergies*) Allergy (Verified 07/29/25 13:32) Medication List - Last Reconciled 07/29/25 by Artur Vinson MD albuterol sulfate 90 mcg/actuation (Ventolin HFA) 2 puffs inhalation Q6H PRN amlodipine 5 mg PO DAILY 90 days ascorbate calcium (vitamin C) 500 mg PO DAILY calcium carbonate 500 mg PO DAILY dabigatran etexilate 150 mg PO BID docusate sodium (Colace) 100 mg PO BID dronedarone 400 mg PO BID furosemide 20 mg PO DAILY lisinopril 40 mg PO BEDTIME 30 days multivitamin 1 tab PO DAILY pravastatin 40 mg PO DAILY 90 days prednisone 5 mg (5 x 1 mg) PO DAILY 60 days walker Folding Front wheeled walker Tobacco use date assessed: 01/23/25 Dental Screening Dental Screen Date: 01/23/25 HPI HPI Comments History of Present Illness Details History of Present Illness The patient is an 84 year old individual presenting with atrial fibrillation and shortness of breath. The patient complains of ongoing shortness of breath and recently saw a remote sensing technician for this and atrial fibrillation. Recent testing revealed a slightly elevated BNP of 1500. The patient has a history of polymyalgia rheumatica, diagnosed last October, and has been on prednisone since, starting at 10 mg. The patient will be seeing the advanced manufacturing consultant, Dr. Pablo, next week. A recent echocardiogram showed a good ejection fraction but diastolic dysfunction. The patient reports a 5-pound weight gain, although the patient denies leg swelling, the legs appear flat. The patient follows a Weight Watchers diet. The patient's blood pressures are noted to be erratic, with morning readings as low as 88/43 mmHg after breakfast, causing symptoms. Past medical history includes CKD stage 3B, with a creatinine of 1.21 in April, and a history of COPD which resolved with weight loss. LDL cholesterol was 80 in April. Medical History: - Atrial fibrillation - Diastolic dysfunction - Polymyalgia rheumatica, diagnosed in October - Essential hypertension - Chronic kidney disease, stage 3B - History of chronic obstructive pulmonary disease - Hypercholesterolemia Medications: - Furosemide (Lasix) 20 mg for fluid retention - Prednisone 10 mg for polymyalgia rheumatica - Dronedarone (Multaq) 400 mg twice a day for atrial fibrillation - Dabigatran (Pradaxa) 150 mg twice a day for stroke prevention - Amlodipine 5 mg for hypertension - Lisinopril 40 mg for hypertension - Pravastatin 40 mg for cholesterol Diagnostic Results: - Labs: Recent BNP was 1500. - Labs (April): LDL cholesterol was 80, creatinine was 1.21, and electrolytes were normal. - Tests and Diagnostics: A recent echocardiogram showed a good ejection fraction with diastolic dysfunction. - Imaging: An x-ray showed some lung changes. Social History - Substance use: The patient denies a history of smoking. - Functional status: The patient ambulates independently and is active daily. - Nutritional intake: The patient follows a Weight [employer] diet and attends meetings weekly. - Exercise: The patient bowls. [facility] Medical History (Updated 07/29/25 @ 14:06 by Artur Vinson MD) Wheezing Diastolic dysfunction Osteoarthritis of right knee Urinary incontinence Hx of squamous cell carcinoma of skin Hx of skin cancer, basal cell Arthritis Ambulates with cane A-fib Epidermal cyst of face Paroxysmal atrial fibrillation HTN (hypertension) Right bundle branch block (RBBB) on electrocardiogram (ECG) Surgical History Hx of colonoscopy (~10/24/15) Hx of vein stripping Hx of bilateral cataract extraction History of total knee replacement (~2014) History of tonsillectomy Family History Father Pancreatic cancer Mother Stroke CHF (congestive heart failure) Diabetes mellitus Brother Cardiovascular disease Social History Household Members: Other Household Members Other:: sister from [facility] Caregiver staying overnight: No Housing: Apartment Are you a primary child day care teacher to a significant other at home: No Do you presently have visiting nurse or other home services: No 75 years or older and lives alone: No Alcohol intake: current Alcohol intake frequency: holidays/special occasions only Alcohol type: wine Patient Tobacco Use Status: Never used Tobacco e-Cigarette/Vaping Use: Never Used service: No Current occupational status: retired Cognitive needs: No Hearing needs: No (reading glasses) Vision needs: Yes (reading glasses) Questionnaire Thrive Questionnaire Date Thrive assessed: 01/23/25 AUDIT C Alcohol Use Questionnaire (AUDIT-C) 1. How often do you have a drink containing alcohol?: Monthly or less 2. How many drinks containing alcohol do you have on a typical day when you are drinking?: 1 or 2 3. How often do you have six or more drinks on one occasion?: Never Total Score: 1 BLANCO-7 AMB Questionnaire BLANCO-7 Date BLANCO - 7 assessed: 01/23/25 Source: Developed by Drs. Gilbert Joel, Kelsey Merida, Nikolai Anders and colleagues, with an educational nestor from [employer]. Review of Systems Narrative Review of Systems - Cardiovascular: Reports shortness of breath, which limits walking. Denies chest pain. - Respiratory: Reports wheezing and morning congestion. Denies cough. - Neurological: Reports symptoms of orthostatic hypotension with morning low blood pressure. Denies headaches or vision changes. - Gastrointestinal: Denies nausea, vomiting, or abnormal bowel movements. - Genitourinary: Reports nocturia, getting up 7-8 times at night. Denies other urinary issues. All systems reviewed & are unremarkable except as reviewed in HPI and above Physical exam (Primary Care) Vital Signs: Last Vital Signs Temp 97.8 F 07/29/25 13:38 Pulse 83 07/29/25 13:38 Resp 18 07/29/25 13:38 BP 126/58 L 07/29/25 13:38 Pulse Ox 97 07/29/25 13:38 Oxygen Delivery Method Room Air 07/29/25 13:38 BMI result Body Mass Index 38.6 Tobacco/Smoking Status: Tobacco use Status Tobacco use date assessed 01/23/25 07/29/25 13:37 Patient Tobacco Use Status Never used Tobacco 07/29/25 13:37 e-Cigarette/Vaping Use Never Used 07/29/25 13:37 Thrive Assessment: Date of Thrive Assessment Date Thrive assessed 01/23/25 07/29/25 13:37 Narrative Physical Exam General: +Alert and oriented, Well nourished, No acute distress. Eye: Pupils are equal, round and reactive to light, Intact accommodation, Extraocular movements are intact, Normal conjunctiva, Vision unchanged. HENT: Normocephalic, Atraumatic, Tympanic membranes are clear, Normal hearing, Oral mucosa is moist, No pharyngeal erythema, Ear canals patent. Respiratory: Lungs CTA bilaterally, Wheezing noted, Respirations are non-labored. Cardiovascular: Irregular rate, Irregular rhythm, S1 auscultated, S2 auscultated, No murmur, Good pulses equal in all extremities, Normal peripheral perfusion, No edema. Gastrointestinal: Soft, Non-tender, Non-distended, Normal bowel sounds, No organomegaly. Musculoskeletal: Normal range of motion, Normal strength, No tenderness, No swelling, No deformity, Normal gait. Integumentary: Warm, Dry, [place], Intact, Some swelling noted in lower extremities. Neurologic: Alert, Oriented, Normal sensory, Normal motor function, No focal defects, Cranial Nerves II-XII are grossly intact, Normal deep tendon reflexes. Psychiatric: Cooperative, Appropriate mood & affect, Normal judgment. Office Procedures Flu Questionnaire Does the patient have a severe egg allergy?: No Does the patient have severe life threatening allergies?: No Does the patient have a fever or illness today?: No Has the patient ever had Guillain-[place] Syndrome?: No Has the patient ever had any past reaction to a flu shot?: No Immunizations Fluzone High-Dose (PF) 180 mcg/0.5 mL intramuscular syringe Performing Provider: Artur Vinson MD Performing Location: [facility]-10 HD Administered by: Artur Vinson MD on 07/29/25 14:02 Dose Route Admin Location Dispensed Lot Number Expiration Date [facility] Him Analyst 0.5 mL IM Right Deltoid 0.5 mL [id number] 01/27/26 [id number] [employer] Total Dispensed Waste 0.5 mL 0 % VIS Given Date VIS Provided VIS Publication Date 07/29/25 Single Vaccine 24 Eligibility Eligibility Date Funding Source Not [facility] Eligible 07/29/25 Private Coding Level of Care Code Est Pt Level 4 (05618) Complex visit Add On G2211 Diagnoses Persistent atrial fibrillation I48.19 Diastolic dysfunction I51.89 Wheezing R06.2 Polymyalgia rheumatica M35.3 Hypertension, unspecified type I10 Hypertension type: unspecified Assessment & Plan Assessment & Plan (1) Persistent atrial fibrillation: Comment: - The patient's shortness of breath is believed to be symptomatic of atrial fibrillation, which is not fully controlled despite treatment with Multaq 400 mg twice daily and Pradaxa 150 mg twice daily. - Awaiting further recommendations from the remote sensing technician, who is considering switching to amiodarone. Code(s): I48.19 - Other persistent atrial fibrillation Category: Medical (2) Diastolic dysfunction: Comment: - Echocardiogram confirmed diastolic dysfunction, and an exam revealed lower extremity edema, consistent with fluid overload. - Recommended a trial of an extra dose of furosemide 20 mg to assess for improvement in shortness of breath. Code(s): I51.89 - Other ill-defined heart diseases Category: Medical (3) Wheezing: Comment: - The patient reports new onset wheezing and morning congestion. - Prescribed an albuterol inhaler for as-needed use to determine if it provides relief. Code(s): R06.2 - Wheezing Category: Medical (4) Polymyalgia rheumatica: Comment: Diagnosed in 2024, initially on treatment with prednisone 10 which has gradually been weaned down and currently at 7 mg per day with plans to decrease by 1 mg every month until 5 mg and continue indefinitely - The patient is taking prednisone, which may be contributing to fluid retention and weight gain. - Advised to discuss tapering off prednisone with the advanced manufacturing consultant at the upcoming appointment. Code(s): M35.3 - Polymyalgia rheumatica Category: Medical (5) HTN (hypertension): Comment: - Blood pressure is generally controlled but the patient reports symptomatic morning orthostatic hypotension. - Counseled on rising slowly from a seated or lying position. - Continue current medications of amlodipine 5 mg and lisinopril 40 mg. Code(s): I10 - Essential (primary) hypertension Category: Medical Qualifiers: Hypertension type: unspecified Qualified Code(s): I10 - Essential (primary) hypertension Plan: Health Maintenance: - Influenza vaccine administered during the visit. - The patient was advised to get a COVID-19 shot at a pharmacy. - The patient follows a Weight Watchers diet and monitors weight daily. - Follow-up scheduled in four months. Patient was informed and verbally consented to the use of an ambient scribe for clinic note documentation during this visit. Plan I discussed with the patient that the shortness of breath is likely multifactorial, stemming from both symptomatic atrial fibrillation and fluid overload due to diastolic dysfunction. I explained that we would await the remote sensing technician's formal recommendations for managing the Afib. Given the recent weight gain and swelling in the legs, I recommended a trial of an extra furosemide pill to see if it provides relief. For the new complaint of wheezing, I prescribed an albuterol inhaler for as-needed use. We also discussed that the long-term use of prednisone for polymyalgia rheumatica could be contributing to fluid retention, and I encouraged the patient to talk to the advanced manufacturing consultant about tapering this medication. I counseled the patient on preventing falls by standing up slowly to manage morning dizziness. We administered a flu shot during the visit and I recommended the patient receive a COVID-19 vaccine. I scheduled a follow-up appointment in four months to review progress. Orders: Orders Influenza [id number] High Dose Immunization Today Z23 - Encounter for immunization Medications: New albuterol sulfate 90 mcg/actuation (Ventolin HFA) 2 puffs inhalation Q6H PRN 8.5 grams 5RF shortness of breath or wheezing Patient Instructions: - Try taking one extra water pill (furosemide) on a day when you are at home to see if it helps your shortness of breath. - Use the albuterol inhaler I prescribed as needed if you are wheezing. - Discuss coming off of the prednisone with your advanced manufacturing consultant, Dr. Pablo, at your appointment next week. - Stand up slowly, especially in the morning, to avoid feeling dizzy or falling. - Continue checking your weight every day. - You will need to get your COVID-19 shot at a pharmacy. - Come back for a follow-up visit in four months.
[2025-07-29 13:38] VITALS: BP 126/58; PULSE 83; RESP 18; TEMP 36.6; O2SAT 97; BMI 38.6
== END 2025-07-29 14:03 | disposition home or self-care (01) ==
PROVIDERS: PCP Student in an Organized Health Care Education/Training Program; Visit Provider Student in an Organized Health Care Education/Training Program
DX: I48.19 Other persistent atrial fibrillation (principal); I51.89 Other ill-defined heart diseases; R06.2 Wheezing; M35.3 Polymyalgia rheumatica; I10 Essential (primary) hypertension; Z23 Encounter for immunization

== ENCOUNTER → 2025-07-29 13:24 | Outpatient (BNVA) | payer OTHER, SELFPAY | PROVIDERS: PCP Internal Medicine; Visit Provider Student in an Organized Health Care Education/Training Program | DX: I48.19 Other persistent atrial fibrillation (principal); I51.89 Other ill-defined heart diseases; I10 Essential (primary) hypertension; R06.2 Wheezing; M35.3 Polymyalgia rheumatica; Z23 Encounter for immunization | CPT/HCPCS: 90471; 90662; 99212 ==

== ENCOUNTER 2025-08-01 07:54 | Outpatient (REF) | payer OTHER, SELFPAY ==
--- OUTSIDE RECORDS SUMMARY | 2025-08-01 07:57 | XMS_ITS | Patient Health Record ---
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 Uma (RETIRED) Bar MELGAR Primary Care Provide r Unavailable Gilbert Parnell Unavailable [phone] Reason For Referral No Information Medications Medication SIG (Take, Route, Frequency, Duration) Notes Start Date End Date Status Pradaxa 150 MG Capsule 1 capsule Orally Twice a day Active Vitamin C 500 MG Tablet 1 tablet Orally Once a day Active Multivitamins 1 Capsule 1 capsule Orally once a day Active Calcium 600 MG Tablet 1 tablet with meal s Orally Once a day Active hydroCHLOROthiazide 12.5 MG Tablet 1 tablet Orally Once a day Active Atenolol 25 MG Tablet 1 tablet Orally On ce a day Active Pravastatin Sodium 40 MG Tablet 1 tablet Orally Once a day Active Multaq 400 MG Tablet 1 tablet with meals Orally Twice a day Active Colyte w Flavor Packs 240 GM Solution Reconstituted as directed Orally as directed; Duration: 1 day(s) 07/31/2015 Active Lisinopril 40 MG Tablet 1 tablet Orally Once a day Active Immunizations Vaccine Route Administration Date Status Comme nts Flu vaccine no Preserv 3 and > Unknown 06/29/2015 Admin istered Social History Social History Additional Details Category Social Info Options Details Miscellaneous: Marital status: Sister at 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 [employer] Section Notes: Nonsmoker; no alcohol Problems Problem Type SNOMED Code ICD Code Onset Dates Problem Status W/U Status Risk Notes Problem Screening for malignant neoplasm of colon (836708010) Encounter for screening for malignant neoplasm of colon (Z12.11) Active confirmed Problem Screening for malignant neoplasm of rectum (354716938) Encounter for screening for malignant neoplasm of rectum (Z12.12) Active confirmed Problem Long-term current use of anticoagulant (160920049) Anticoagulant long-term use (Z79.01) Active confirmed Plan Of Treatment Future Test Test Name Order Date COLONOSCOPY 07/29/2015 Insurance Providers Payer Name Payer Address Payer Phone Subscriber Number Group Number Insured Name Patient Relationship to Insured Coverage Start Date Coverage End Date [employer] [address] [place] [phone] [id number] KATY BRIZUELA SR Self - patient is the insured MEDICAID OF [place] [facility] [address] [place] [address] [id number] KATY BRIZUELA SR Self - patient is the insured Medical (General) History Medical History History ICD Code colonoscopy 12-02-2004--negati ve except for diverticulosis and internal hemorrhoids hypertension hyperlipidemia Atrial fibrillation urinary incontinence Surgical History Surgery Date(Month/Year) vein stripping left knee replacement December 2014 cataract surgery right/going back in two weeks for left June 2015
[2025-08-01 09:18] LABS: Erythrocyte Sedimentation Rate 36 MM/HR (0-20)
== END 2025-08-01 07:55 | disposition home or self-care (01) ==
LOC: HO.LAB 07:54
PROVIDERS: PCP Student in an Organized Health Care Education/Training Program; Visit Provider Internal Medicine Rheumatology
DX: Z79.899 Other long term (current) drug therapy (principal)
CPT/HCPCS: 36415; 85652; 86140

== ENCOUNTER 2025-08-06 09:31 | Outpatient (AMB) | payer OTHER, SELFPAY ==
--- NOTE | 2025-08-06 09:32 | MHC.OFFVIS ---
Vital Signs 08/06/25 09:33 Height 5 ft 1.14 in Weight 201 lb 8.04 oz BMI 37.9 BP 130/80 Blood Pressure Location Lt brachial Position Sitting Pulse 89 Pulse Source Pulse Oximeter Pulse Oximetry (%) 99 Oxygen Delivery Method Room Air Intake Visit Reasons: 4 months Intake Note: Patient presents for Polymyalgia Rheumatica. Accompanied by: Self / Same As Patient Allergies No Known Allergies (No Known Allergies*) Allergy (Verified 08/06/25 09:32) HPI HPI 4 months: Details: Denies any PMR symptoms. Denies soreness in arms or legs. She has been on prednisone 5 mg daily since March. She is experiencing chest conjunction and dyspnea. PCP started prednisone and albuterol inhaler a week ago. She does not feel any different. [facility] Medical History Wheezing Diastolic dysfunction Osteoarthritis of right knee Urinary incontinence Hx of squamous cell carcinoma of skin Hx of skin cancer, basal cell Arthritis Ambulates with cane A-fib Epidermal cyst of face Paroxysmal atrial fibrillation HTN (hypertension) Right bundle branch block (RBBB) on electrocardiogram (ECG) Surgical History Hx of colonoscopy (~10/24/15) Hx of vein stripping Hx of bilateral cataract extraction History of total knee replacement (~2014) History of tonsillectomy Family History Father Pancreatic cancer Mother Stroke CHF (congestive heart failure) Diabetes mellitus Brother Cardiovascular disease Social History Household Members: Other Household Members Other:: sister from [facility] Caregiver staying overnight: No Housing: Apartment Are you a primary resident care manager to a significant other at home: No Do you presently have visiting nurse or other home services: No 75 years or older and lives alone: No Alcohol intake: current Alcohol intake frequency: holidays/special occasions only Alcohol type: wine Patient Tobacco Use Status: Never used Tobacco e-Cigarette/Vaping Use: Never Used service: No Current occupational status: retired Cognitive needs: No Hearing needs: No (reading glasses) Vision needs: Yes (reading glasses) Physical Exam Vital Signs: Last Vital Signs Pulse 89 08/06/25 09:33 BP 130/80 08/06/25 09:33 Pulse Ox 99 08/06/25 09:33 Oxygen Delivery Method Room Air 08/06/25 09:33 BMI result Body Mass Index 37.9 Const Other: General: Comfortable CVS: RRR Respiratory: clear to auscultation bilaterally. Good respiratory effort Skin: No lesions seen MSK: She is able to get up from seated position without using arms on armrest. No tenderness of shoulders are biceps region. No synovitis. Shoulder abduction 160 degrees bilateral. She has normal internal and external rotation of bilateral shoulders. Bilateral knee flexion 90 degrees. Assessment & Plan Assessment & Plan (1) Polymyalgia rheumatica: Comment: In clinical remission. Labs from 08/01/2025 reveal elevation inflammatory markers. She denies any signs or symptoms of infection. She has lower extremity edema with possible long-term prednisone contributing to fluid retention. In April she had a cardiology evaluation. Persistent day fibrillation is likely contributing to her symptoms of dyspnea. Rheumatology history: Diagnosed in 2024, initially on treatment with prednisone 10 which has gradually been weaned down. Code(s): M35.3 - Polymyalgia rheumatica Category: Medical Plan: I will check inflammatory markers this visit. I will advise on prednisone taper after labs are reviewed Wear compression stockings Continue prednisone 5 mg daily until labs are reviewed Information on Kevzara given to patient if she has relapse in PMR She will need a bone density if she has not had it in 2 years Return to clinic in 3 months Orders: Orders C Reactive Protein Today Z79.899 - Other retirement (current) drug therapy Erythrocyte Sedimentation Rate Today Z79.899 - Other retirement (current) drug therapy Coding Level of Care Code Est Pt Level 4 (61831) Complex visit Add On G2211 Diagnoses Polymyalgia rheumatica M35.3
[2025-08-06 09:33] VITALS: BP 130/80; PULSE 89; O2SAT 99; BMI 37.9
== END 2025-08-06 10:15 | disposition home or self-care (01) ==
LOC: HO.RHES 09:31
PROVIDERS: PCP Internal Medicine; Visit Provider Internal Medicine Rheumatology
DX: M35.3 Polymyalgia rheumatica (principal)
CPT/HCPCS: 99214; G2211

== ENCOUNTER 2025-08-06 09:31 | Outpatient (REF) | payer OTHER, SELFPAY ==
[2025-08-06 14:36] LABS: Erythrocyte Sedimentation Rate 34 MM/HR (0-20)
== END 2025-08-06 09:32 | disposition home or self-care (01) ==
LOC: HO.HKASLDS 09:31
PROVIDERS: PCP Student in an Organized Health Care Education/Training Program; Visit Provider Internal Medicine Rheumatology
DX: M35.3 Polymyalgia rheumatica (principal); Z79.899 Other long term (current) drug therapy
CPT/HCPCS: 36415; 85652; 86140; 99212

== ENCOUNTER 2025-08-08 13:50 | Outpatient (AMB) | payer OTHER, SELFPAY ==
--- NOTE | 2025-08-08 13:52 | MHC.PC.OV ---
Vital Signs 08/08/25 13:55 Height 5 ft 1 in Weight 201 lb BMI 38.0 BP 138/80 Blood Pressure Location Lt brachial Position Sitting Respiration 18 Pulse 79 Pulse Source Pulse Oximeter Temp 97.2 F Temp Source Temporal Artery Scan Pulse Oximetry (%) 98 Oxygen Delivery Method Room Air Intake Visit Reasons: f/u due to labs from Dr. Pablo (see comments) Director It Project Required: No Accompanied by: Self / Same As Patient Allergies No Known Allergies (No Known Allergies*) Allergy (Verified 08/08/25 13:52) Medication List - Last Reconciled 08/08/25 by Artur Vinson MD albuterol sulfate 90 mcg/actuation (Ventolin HFA) 2 puffs inhalation Q6H PRN amlodipine 5 mg PO DAILY 90 days ascorbate calcium (vitamin C) 500 mg PO DAILY calcium carbonate 500 mg PO DAILY dabigatran etexilate 150 mg PO BID docusate sodium (Colace) 100 mg PO BID dronedarone 400 mg PO BID furosemide 20 mg PO DAILY lisinopril 40 mg PO BEDTIME 30 days multivitamin 1 tab PO DAILY pravastatin 40 mg PO DAILY 90 days prednisone 1 mg PO DAILY prednisone 4 mg PO DAILY walker Folding Front wheeled walker Tobacco use date assessed: 01/23/25 Fall risk assessment: No Falls in past year Last assessed Fall Risk: 08/08/25 Dental Screening Dental Screen Date: 01/23/25 HPI HPI Comments History of Present Illness Details History of Present Illness The patient is an 84-year-old female presenting for evaluation of possible infection, as recommended by her optical glass wet inspector due to elevated inflammatory markers. The patient reports that her optical glass wet inspector noted high inflammatory markers on blood work last week and on Tuesday, though review of records indicates these markers have been elevated since December. Her ESR was 53 in December and is now 34, having hovered between 26 and 32. Her C-reactive protein (CRP) was 1 and is now down to 0.5, having been as high as 1.5 in October. Associated symptoms include a stye on her eye that has been present for two weeks without resolution despite bathing and using heat compresses, and congestion that has persisted for at least two to three months. She reports an occasional cough but denies fever, chills, or coughing up phlegm. The patient has a history of polymyalgia rheumatica, for which her optical glass wet inspector is tapering her prednisone down from 4 mg. She also has a history of atrial fibrillation, contributing to her shortness of breath, and a past diagnosis of COPD from over 10 years ago. She was previously prescribed albuterol but has not used it frequently. Her current medications include Multaq (dronedarone) 400 mg, dabigatran 150 mg twice daily, furosemide, lisinopril 40 mg, amlodipine 5 mg, and pravastatin 40 mg. She notes slight bilateral pedal edema and wears compression stockings, and reports that furosemide causes significant urination but is unsure if it helps the swelling. The patient is up-to-date on her COVID and flu vaccinations. Medical History: - Polymyalgia rheumatica - Atrial fibrillation (AFib) - Chronic Obstructive Pulmonary Disease (COPD), diagnosed over 10 years ago - Hypertension - Hypercholesterolemia Medications: - Prednisone 4 mg, being tapered for polymyalgia rheumatica - Multaq (dronedarone) 400 mg for atrial fibrillation - Dabigatran 150 mg twice daily for atrial fibrillation - Furosemide for edema - Lisinopril 40 mg for hypertension - Amlodipine 5 mg for hypertension - Pravastatin 40 mg for hypercholesterolemia - Albuterol inhaler as needed for COPD/shortness of breath Diagnostic Results: - Lab trends: White blood cell count is normal. - Lab trends: Erythrocyte Sedimentation Rate (ESR), an inflammatory marker, was 53 in December and is most recently 34. - Lab trends: C-reactive protein (CRP), an inflammatory marker, was as high as 1.5 in October and is now down to 0.5. - Vitals: Blood pressure today is 138/80 mmHg. Social History - The patient plans to visit her brother in [place], [place] for the holidays. [facility] Medical History (Updated 08/08/25 @ 14:16 by Artur Vinson MD) COPD (chronic obstructive pulmonary disease) Stye Suspected infectious disease URI (upper respiratory infection) Wheezing Diastolic dysfunction Osteoarthritis of right knee Urinary incontinence Hx of squamous cell carcinoma of skin Hx of skin cancer, basal cell Arthritis Ambulates with cane A-fib Epidermal cyst of face Paroxysmal atrial fibrillation HTN (hypertension) Right bundle branch block (RBBB) on electrocardiogram (ECG) Surgical History Hx of colonoscopy (~10/24/15) Hx of vein stripping Hx of bilateral cataract extraction History of total knee replacement (~2014) History of tonsillectomy Family History Father Pancreatic cancer Mother Stroke CHF (congestive heart failure) Diabetes mellitus Brother Cardiovascular disease Social History Household Members: Other Household Members Other:: sister from [place] Caregiver staying overnight: No Housing: Apartment Are you a primary laboratory animal care veterinarian to a significant other at home: No Do you presently have visiting nurse or other home services: No 75 years or older and lives alone: No Alcohol intake: current Alcohol intake frequency: holidays/special occasions only Alcohol type: wine Patient Tobacco Use Status: Never used Tobacco e-Cigarette/Vaping Use: Never Used service: No Current occupational status: retired Cognitive needs: No Hearing needs: No (reading glasses) Vision needs: Yes (reading glasses) Questionnaire Thrive Questionnaire Date Thrive assessed: 01/23/25 BLANCO-7 AMB Questionnaire BLANCO-7 Date BLANCO - 7 assessed: 01/23/25 Source: Developed by Drs. Gilbert Joel, Kelsey Merida, Nikolai Anders and colleagues, with an educational nestor from [employer]. Review of Systems Narrative Review of Systems - General: Denies fever and chills. - Eyes: Reports a stye on one eye for the past two weeks. - Respiratory: Reports congestion for the past 2-3 months, occasional cough, and shortness of breath. Denies coughing up phlegm. - Cardiovascular: Reports slight bilateral leg swelling. - Genitourinary: Reports frequent urination. Denies burning with urination. All systems reviewed & are unremarkable except as reviewed in HPI and above Physical exam (Primary Care) Vital Signs: Last Vital Signs Temp 97.2 F 08/08/25 13:55 Pulse 79 08/08/25 13:55 Resp 18 08/08/25 13:55 BP 138/80 08/08/25 13:55 Pulse Ox 98 08/08/25 13:55 Oxygen Delivery Method Room Air 08/08/25 13:55 BMI result Body Mass Index 38.0 Tobacco/Smoking Status: Tobacco use Status Tobacco use date assessed 01/23/25 08/08/25 13:54 Patient Tobacco Use Status Never used Tobacco 08/08/25 13:54 e-Cigarette/Vaping Use Never Used 08/08/25 13:54 Thrive Assessment: Date of Thrive Assessment Date Thrive assessed 01/23/25 08/08/25 13:54 Narrative Physical Exam General: +Alert and oriented, Well nourished, No acute distress. Eye: Pupils are equal, round and reactive to light, Intact accommodation, Extraocular movements are intact, Normal conjunctiva, Vision unchanged, Presence of a stye on the eye. HENT: Normocephalic, Atraumatic, Tympanic membranes are clear, Normal hearing, Oral mucosa is moist, No pharyngeal erythema, Ear canals patent. Respiratory: Lungs CTA bilaterally, No wheeze, Respirations are non-labored, History of COPD, Congestion present. Cardiovascular: Regular rate, Regular rhythm, S1 auscultated, S2 auscultated, No murmur, Good pulses equal in all extremities, Normal peripheral perfusion, No edema, History of AFib. Gastrointestinal: Soft, Non-tender, Non-distended, Normal bowel sounds, No organomegaly. Musculoskeletal: Normal range of motion, Normal strength, No tenderness, No deformity, Normal gait, Swelling in both legs. Integumentary: Warm, Dry, [place], Intact. Neurologic: Alert, Oriented, Normal sensory, Normal motor function, No focal defects, Cranial Nerves II-XII are grossly intact, Normal deep tendon reflexes. Psychiatric: Cooperative, Appropriate mood & affect, Normal judgment. Coding Level of Care Code Est Pt Level 4 (93074) Add On Problem Visit Only Diagnoses Suspected infectious disease R68.89 Hordeolum externum of right lower eyelid H00.012 Laterality: right Eyelid: lower Chronic obstructive pulmonary disease, unspecified COPD type J44.9 COPD type: unspecified COPD Polymyalgia rheumatica M35.3 Diastolic dysfunction I51.89 Hypertension, unspecified type I10 Hypertension type: unspecified Persistent atrial fibrillation I48.19 Assessment & Plan Assessment & Plan (1) Suspected infectious disease: Comment: - The patient was referred by her optical glass wet inspector for evaluation of a possible infection due to elevated inflammatory markers. - However, review of lab trends shows that her inflammatory markers (ESR, CRP) are actually decreasing, and her white blood cell count is normal, making an acute infection less likely. - To provide reassurance and rule out occult sources, a chest x-ray, CBC, and urinalysis will be ordered Code(s): R68.89 - Other general symptoms and signs Category: Medical (2) Stye: Comment: - The patient has a persistent stye for two weeks that has not resolved with warm compresses. - The patient is advised to continue warm compresses and to follow up with her typing element machine operator, who may be able to incise and drain it. Code(s): H00.019 - Hordeolum externum unspecified eye, unspecified eyelid Category: Medical Qualifiers: Laterality: right Eyelid: lower Qualified Code(s): H00.012 - Hordeolum externum right lower eyelid (3) COPD (chronic obstructive pulmonary disease): Comment: - The patient's shortness of breath is likely multifactorial, stemming from her known atrial fibrillation and a possible exacerbation or progression of her remote history of COPD. - The chronic cough may also be related to COPD. - She is encouraged to use her albuterol inhaler as needed, up to 4-6 times per day, to assess for improvement. Code(s): J44.9 - Chronic obstructive pulmonary disease, unspecified Category: Medical Qualifiers: COPD type: unspecified COPD Qualified Code(s): J44.9 - Chronic obstructive pulmonary disease, unspecified (4) Polymyalgia rheumatica: Comment: - The patient is managed by rheumatology and is currently on a steroid taper. - The responsibility for managing this condition and its associated treatment lies with her optical glass wet inspector. Rheumatology history: Diagnosed in 2024, initially on treatment with prednisone 10 which has gradually been weaned down. Code(s): M35.3 - Polymyalgia rheumatica Category: Medical (5) Diastolic dysfunction: Comment: - Echocardiogram confirmed diastolic dysfunction, and an exam revealed lower extremity edema, consistent with fluid overload. - Recommended a trial of an extra dose of furosemide 20 mg to assess for improvement in shortness of breath. Code(s): I51.89 - Other ill-defined heart diseases Category: Medical (6) HTN (hypertension): Comment: - Blood pressure is generally controlled but the patient reports symptomatic morning orthostatic hypotension. - Counseled on rising slowly from a seated or lying position. - Continue current medications of amlodipine 5 mg and lisinopril 40 mg. Code(s): I10 - Essential (primary) hypertension Category: Medical Qualifiers: Hypertension type: unspecified Qualified Code(s): I10 - Essential (primary) hypertension (7) Persistent atrial fibrillation: Comment: - The patient's shortness of breath is believed to be symptomatic of atrial fibrillation, which is not fully controlled despite treatment with Multaq 400 mg twice daily and Pradaxa 150 mg twice daily. - Awaiting further recommendations from the paper cone maker, who is considering switching to amiodarone. Code(s): I48.19 - Other persistent atrial fibrillation Category: Medical Plan: Health Maintenance: - The patient has received her flu shot. - The patient has received her COVID-19 vaccination. Patient was informed and verbally consented to the use of an ambient scribe for clinic note documentation during this visit. Plan I discussed with the patient that her optical glass wet inspector sent her to me to check for an infection due to high inflammatory markers. I explained that after reviewing her recent and past lab results, her inflammatory markers are actually improving and her white blood cell count is normal, which does not suggest an active infection. However, to be thorough and provide peace of mind, I will order a chest x-ray, blood work (CBC), and a urine test. We discussed that her shortness of breath is likely due to a combination of her known atrial fibrillation and a possible flare-up of her past COPD diagnosis. I advised her to try using her albuterol inhaler more frequently, as needed, to see if it helps her breathing. Regarding her persistent stye, I recommended she contact her eye doctor for possible drainage. I informed her that I will contact her with the results, either through the patient portal or by phone. I reassured her not to worry and to enjoy her upcoming holiday plans. Orders: Orders Complete Blood Count Auto Diff Today Artur Vinson MD J06.9 - Acute upper respiratory infection, unspecified XR chest 2V Today Artur Vinson MD J06.9 - Acute upper respiratory infection, unspecified Basic Metabolic Panel Today Artur Vinson MD J06.9 - Acute upper respiratory infection, unspecified UA CC w/rflx Micro + Cult Today Artur Vinson MD R30.0 - Dysuria Medications: Changed From prednisone 5 mg (5 x 1 mg) PO DAILY 60 days 300 tabs 0RF To prednisone 4 mg PO DAILY Luis Fernando Pablo MD Patient Instructions: - Go to the hospital lab to have blood drawn and to the radiology department for a chest x-ray. - We will also check your urine to make sure there is no infection. - For the stye on your eye, continue using warm heat compresses. Please reach out to your eye doctor, as they may need to drain it. - For your shortness of breath, you can use your albuterol inhaler up to 4 to 6 times a day as needed. - I will contact you with your test results through the patient portal or by phone.
[2025-08-08 13:55] VITALS: BP 138/80; PULSE 79; RESP 18; TEMP 36.2; O2SAT 98; BMI 38.0
--- OUTSIDE RECORDS SUMMARY | 2025-08-08 21:07 | XMS_ITS | Patient Health Record ---
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 [employer] Section Notes: Nonsmoker; no alcohol Problems Problem Type SNOMED Code ICD Code Onset Dates Problem Status W/U Status Risk Notes Problem Screening for malignant neoplasm of colon (844505711) Encounter for screening for malignant neoplasm of colon (Z12.11) Active confirmed Problem Screening for malignant neoplasm of rectum (246099678) Encounter for screening for malignant neoplasm of rectum (Z12.12) Active confirmed Problem Long-term current use of anticoagulant (965148442) Anticoagulant long-term use (Z79.01) Active confirmed Plan Of Treatment Future Test Test Name Order Date COLONOSCOPY 07/29/2015 Insurance Providers Payer Name Payer Address Payer Phone Subscriber Number Group Number Insured Name Patient Relationship to Insured Coverage Start Date Coverage End Date [employer] [address] [place] [phone] [id number] KATY BRIZUELA SR Self - patient is the insured MEDICAID OF [facility] [address] [place] [address] [phone] [id number] KATY BRIZUELA SR Self - patient is the insured Medical (General) History Medical History History ICD Code colonoscopy 12-02-2004--negati ve except for diverticulosis and internal hemorrhoids hypertension hyperlipidemia Atrial fibrillation urinary incontinence Surgical History Surgery Date(Month/Year) vein stripping left knee replacement December 2014 cataract surgery right/going back in two weeks for left June 2015
== END 2025-08-08 14:10 | disposition home or self-care (01) ==
LOC: HO.HMCHD 13:51
PROVIDERS: PCP Student in an Organized Health Care Education/Training Program; Visit Provider Student in an Organized Health Care Education/Training Program
DX: R68.89 Other general symptoms and signs (principal); H00.012 Hordeolum externum right lower eyelid; J44.9 Chronic obstructive pulmonary disease, unspecified; M35.3 Polymyalgia rheumatica; I51.89 Other ill-defined heart diseases; I10 Essential (primary) hypertension; I48.19 Other persistent atrial fibrillation

== ENCOUNTER 2025-08-08 13:50 | Outpatient (REF) | payer OTHER, SELFPAY ==
--- NOTE | ~2025-08-08 | XR_ITS ---
EXAMINATION: XR CHEST CLINICAL INFORMATION: J06.9 - Acute upper respiratory infection, unspecified COMPARISON: May 21, 2025. TECHNIQUE: PA and lateral views FINDINGS: Hyperinflated lungs. Pulmonary reticular pattern. No consolidation, pleural effusion or pneumothorax. Cardiomediastinal silhouette size is normal with a round cardiac apex. Calcified plaque thoracic aorta. Multilevel spondylosis. Osteopenia versus osteoporosis. XR/XR chest 2V IMPRESSION: No acute airspace disease. Consider chronic interstitial lung disease. Electronically signed by: Bryan Mendoza MD 08/08/2025 02:57 PM EST
[2025-08-08 14:34] LABS: MANUAL DIFF FLAG NO
[2025-08-08 14:51] LABS: Hematocrit 38.4 % (37.0-47.0); Hemoglobin 12.1 g/dl (12.0-16.0); Imm Gran Abs Auto 0.02 X10*3/uL (0.00-0.03); Imm Gran Pct Auto 0.3 % (0.0-0.4); Lymphocytes Absolute Auto 1.3 X10*3/uL (1.2-4.9); Mean Corpuscular HGB Conc 31.5 g/dl (31.0-35.0); Mean Corpuscular Hemoglobin 30.9 pg (27.0-33.0); Mean Corpuscular Volume 98.2 fL (80.0-98.0); NRBC Abs Auto 0.000 X10*3/uL (0.0-0.012); NRBC Pct Auto 0.0 /100WBC (0.0-0.2); Platelet Count 239 X10*3/uL (160-400); Red Blood Count 3.91 X10*6/uL (4.20-5.50); White Blood Count 6.2 X10*3/uL (4.8-10.8)
[2025-08-08 15:54] LABS: Appearance Urine Cloudy; Glucose Urine UA Negative (Negative); PH 7.0 (5.0-9.0); Specific Gravity - Urine 1.010 (1.005-1.025)
[2025-08-08 16:04] LABS: Anion Gap 11 (12-20); Blood Urea Nitrogen 36 mg/dL (9-16); Calcium 9.3 mg/dL (8.4-10.2); Carbon Dioxide 31 mmol/L (22-29); Chloride 105 mmol/L (96-108); Estimated Glomerular Filt Rate 48; Potassium 4.9 mmol/L (3.3-5.1); Sodium 142 mmol/L (135-145)
== END 2025-08-08 13:51 | disposition home or self-care (01) ==
LOC: HO.XRAY 13:50
PROVIDERS: PCP Student in an Organized Health Care Education/Training Program; Visit Provider Student in an Organized Health Care Education/Training Program
DX: R30.0 Dysuria (principal); J06.9 Acute upper respiratory infection, unspecified; I10 Essential (primary) hypertension; R68.89 Other general symptoms and signs; H00.012 Hordeolum externum right lower eyelid; J44.9 Chronic obstructive pulmonary disease, unspecified; M35.3 Polymyalgia rheumatica; I51.89 Other ill-defined heart diseases; I48.19 Other persistent atrial fibrillation
CPT/HCPCS: 36415; 71046; 80048; 81003; 85025; 99212

== ENCOUNTER → 2025-08-08 14:33 | Outpatient (BNV) | payer OTHER, SELFPAY | PROVIDERS: PCP Student in an Organized Health Care Education/Training Program; Visit Provider Radiology Diagnostic Radiology | DX: J06.9 Acute upper respiratory infection, unspecified (principal) | CPT/HCPCS: 71046 ==